=== PATIENT | female | born 1960 | race Caucasian/White ===

== ENCOUNTER → 2020-01-20 12:27 | Outpatient (BNVA) | payer OTHER, SELFPAY | PROVIDERS: PCP Internal Medicine; Referring Provider Internal Medicine; Visit Provider Student in an Organized Health Care Education/Training Program | DX: M17.0 Bilateral primary osteoarthritis of knee (principal); M47.816 Spondylosis without myelopathy or radiculopathy, lumbar region; M72.2 Plantar fascial fibromatosis | CPT/HCPCS: 20610; 99213 ==

== ENCOUNTER 2020-04-07 06:56 | Outpatient (REF) | payer OTHER, SELFPAY ==
[2020-04-07 11:12] LABS: Basophils Percent Auto 0.4 % (0-2); Eosinophils Absolute Auto 0.1 X10*3/uL (0.0-0.4); Eosinophils Percent Auto 1.1 % (0-4); Hematocrit 42.4 % (37-47); Hemoglobin 14.3 g/dl (12.0-16.0); Imm Gran Abs Auto 0.03 X10*3/uL (0.00-0.03); Imm Gran Pct Auto 0.4 % (0.0-0.4); Lymphocytes Percent Auto 36.8 % (20-40); Mean Corpuscular HGB Conc 33.7 g/dl (31.0-35.0); Mean Corpuscular Hemoglobin 32.4 pg (27.0-33.0); Mean Corpuscular Volume 95.9 fL (80-98); Mean Platelet Volume 10.3 fL (9.4-12.3); Monocytes Absolute Auto 0.5 X10*3/uL (0.1-1.2); Monocytes Percent Auto 5.9 % (2-11); Neutrophils Absolute Auto 4.5 X10*3/uL (2.0-8.3); Neutrophils Percent Auto 55.4 % (45-73); Platelet Count 293 X10*3/uL (160-400); Red Blood Count 4.42 X10*6/uL (4.20-5.50); Red Cell Distribution Width 13.1 % (11.0-16.0); White Blood Count 8.2 X10*3/uL (4.8-10.8)
[2020-04-07 11:15] LABS: MANUAL DIFF FLAG NO
[2020-04-07 11:35] LABS: Alanine Aminotransferase 18 U/L (0-31); Anion Gap 14 (12-20); Aspartate Amino Transferase 19 U/L (5-31); Blood Urea Nitrogen 10 mg/dL (9-16); Calcium 8.9 mg/dL (8.4-10.2); Carbon Dioxide 26 mmol/L (22-29); Chloride 104 mmol/L (96-108); Cholesterol 244 mg/dL; Estimated Glomerular Filt Rate > 60; Glucose Fasting 92 mg/dL (60-99); HDL Cholesterol 63 mg/dL; LDL Cholesterol Calculated 150 mg/dl; Potassium 4.6 mmol/l (3.3-5.1); Sodium 139 mmol/L (135-145); Triglycerides 158 mg/dL
[2020-04-07 11:59] LABS: TSH reflex Free T4 2.23 mIU/mL (0.32-4.0); Vitamin D 25-OH Total 25.1 ng/mL (>30)
[2020-04-07 12:34] LABS: Folate 17.7 ng/mL (> or = 4.0); Vitamin B12 516 pg/mL (200-900)
== END 2020-04-07 06:57 | disposition home or self-care (01) ==
LOC: HO.HMGCLDS 06:56
PROVIDERS: PCP Internal Medicine; Visit Provider Internal Medicine
DX: Z00.01 Encounter for general adult medical examination with abnormal findings (principal); K64.8 Other hemorrhoids; L65.9 Nonscarring hair loss, unspecified; Z78.0 Asymptomatic menopausal state; I10 Essential (primary) hypertension
CPT/HCPCS: 36415; 80048; 80061; 82306; 82607; 82746; 84443; 84450; 84460; 85025

== ENCOUNTER → 2020-04-30 15:19 | Outpatient (BNVA) | payer OTHER, SELFPAY | PROVIDERS: Visit Provider Student in an Organized Health Care Education/Training Program | DX: M17.11 Unilateral primary osteoarthritis, right knee (principal); M17.12 Unilateral primary osteoarthritis, left knee | CPT/HCPCS: 20610; 99211 ==

== ENCOUNTER 2020-06-11 14:05 | Outpatient (REF) | payer OTHER, SELFPAY ==
--- NOTE | ~2020-06-11 | MM_ITS ---
EXAMINATION: MM SCREENING DIGITAL BREAST TOMOSYNTHESIS, BILATERAL CLINICAL INFORMATION: Screening. Asymptomatic. The lifetime risk of breast cancer based on the Tyrer-Cuzick Model is 5%. COMPARISON: Mammography: 01/20/2019, 11/21/2017, 12/16/2015 TECHNIQUE: Digital breast tomosynthesis is performed in both the craniocaudal and mediolateral oblique views along with computer-aided detection (CAD). Synthesized 2D images are generated from the tomosynthesis. FINDINGS: There are scattered areas of fibroglandular density (ACR BI-RADS breast composition Category b). There are no significant masses, abnormal calcifications, or other abnormalities. There is a dermal lesion again seen posterior 8:00 left breast. Scattered benign round coarse calcifications again noted. No significant changes. MM/MM tomosynthesis screening BI IMPRESSION: No mammographic evidence of malignancy. ASSESSMENT: BI-RADS 2: Benign RECOMMENDATION: Routine annual mammography screening. This patient's information was entered into a reminder system with a target due date for their next mammogram.
--- NOTE | ~2020-06-11 | MM_ITS ---
EXAMINATION: BONE DENSITOMETRY CLINICAL INDICATION: Asymptomatic menopausal state. COMPARISON: None (current study represents initial baseline exam). TECHNIQUE: Using a SimpliField DXA System (software version: 13.1) manufactured by [employer], dual-energy x-ray absorptiometry was performed of the lumbar spine and left hip. The images are of good technical quality. Summary results are attached. FINDINGS: AP SPINE L1-L4: BMD 1.092 g/cm2, Z-score 0.0, T-score -0.7, normal. LEFT FEMUR, NECK: BMD 0.884 g/cm2, Z-score -0.2, T-score -1.1, osteopenia. LEFT FEMUR, TOTAL: BMD 0.871 g/cm2, Z-score -0.5, T-score -1.1, osteopenia. IDENTIFIED RISK FACTORS: Menopause, tobacco use (current smoker). HISTORY OF FRACTURE: None listed. MEDICATIONS: Calcium supplements or multivitamin, vitamin D. MM/XR DEXA axial skeleton IMPRESSION: 1. DIAGNOSIS: Osteopenia based on the lowest T-score value of -1.1 in the femoral neck and total femur applying World Health Organization criteria. 2. 10-YEAR FRACTURE RISK PREDICTION, FRAX: Major osteoporotic fracture (clinical spine, forearm, hip or shoulder) 7.1%. Hip fracture 0.8%. 3. Treatment Recommendations: NOF guidelines recommend consideration for treatment in postmenopausal women and men age 50 and older presenting with the following: -A hip or vertebral (clinical or morphometric) fracture. -T-score less than or equal to -2.5 at the femoral neck or spine after appropriate evaluation to exclude secondary causes. -Low bone mass at the hip or spine and a 10-year fracture probability by FRAX of greater than or equal to 3% for hip fracture or greater than or equal to 20% for major osteoporotic fracture based on the [place] adapted WHO algorithm. 4. Other Recommendations: All treatment decisions require clinical judgment and consideration of individual patient factors, including patient preferences, comorbidities, previous drug use, risk factors not captured in the FRAX model (e.g. frailty, falls, vitamin D deficiency, increased bone turnover, interval significant decline in bone density) and possible under or overestimation of fracture risk by FRAX. Additional medical evaluation for secondary cause of low bone mineral density may be appropriate. FUTURE SCAN RECOMMENDATION: People with diagnosed cases of osteoporosis or at high risk for fracture should have regular bone mineral density tests. For patients eligible for Medicare, routine testing is allowed once every 2 years. The testing frequency can be increased to one year for patients who have rapidly progressing disease, those who are receiving or discontinuing medical therapy to restore bone mass, or have additional risk factors.
== END 2020-06-11 14:06 | disposition home or self-care (01) ==
LOC: HO.MAMMO 14:05
PROVIDERS: PCP Internal Medicine; Visit Provider Internal Medicine
DX: Z13.820 Encounter for screening for osteoporosis (principal); Z78.0 Asymptomatic menopausal state; Z72.0 Tobacco use; Z79.899 Other long term (current) drug therapy; Z12.31 Encounter for screening mammogram for malignant neoplasm of breast
CPT/HCPCS: 77063; 77067; 77080

== ENCOUNTER 2020-07-23 07:58 | Outpatient (REF) | payer OTHER, SELFPAY ==
--- NOTE | ~2020-07-23 | XR_ITS ---
EXAMINATION: XR knee LT 2V, XR knee RT 2V, XR knee standing BI CLINICAL INFORMATION: Reason for Exam M25.562 - Pain in left knee COMPARISON: None available at the time of this dictation. TECHNIQUE: frontal, lateral, tunnel and patella sunrise views FINDINGS: BONES: No fracture or dislocation is present. JOINTS: Narrowing of joint spaces and developed osteophytes from the edges of articular surfaces suggest degenerative osteoarthritis. There is left knee joint effusion. SOFT TISSUE: Normal XR/XR knee standing BI IMPRESSION: Bilateral moderate degenerative osteoarthritis involving symmetrically medial and lateral compartments. Left knee joint effusion.
--- NOTE | ~2020-07-23 | XR_ITS ---
EXAMINATION: XR knee LT 2V, XR knee RT 2V, XR knee standing BI CLINICAL INFORMATION: Reason for Exam M25.562 - Pain in left knee COMPARISON: None available at the time of this dictation. TECHNIQUE: frontal, lateral, tunnel and patella sunrise views FINDINGS: BONES: No fracture or dislocation is present. JOINTS: Narrowing of joint spaces and developed osteophytes from the edges of articular surfaces suggest degenerative osteoarthritis. There is left knee joint effusion. SOFT TISSUE: Normal XR/XR knee RT 2V IMPRESSION: Bilateral moderate degenerative osteoarthritis involving symmetrically medial and lateral compartments. Left knee joint effusion.
--- NOTE | ~2020-07-23 | XR_ITS ---
EXAMINATION: XR knee LT 2V, XR knee RT 2V, XR knee standing BI CLINICAL INFORMATION: Reason for Exam M25.562 - Pain in left knee COMPARISON: None available at the time of this dictation. TECHNIQUE: frontal, lateral, tunnel and patella sunrise views FINDINGS: BONES: No fracture or dislocation is present. JOINTS: Narrowing of joint spaces and developed osteophytes from the edges of articular surfaces suggest degenerative osteoarthritis. There is left knee joint effusion. SOFT TISSUE: Normal XR/XR knee LT 2V IMPRESSION: Bilateral moderate degenerative osteoarthritis involving symmetrically medial and lateral compartments. Left knee joint effusion.
== END 2020-07-23 07:59 | disposition home or self-care (01) ==
LOC: HO.HOSX 07:58
PROVIDERS: Visit Provider Orthopaedic Surgery
DX: Z01.818 Encounter for other preprocedural examination (principal); M17.12 Unilateral primary osteoarthritis, left knee; M25.561 Pain in right knee; M25.562 Pain in left knee
CPT/HCPCS: 73560; 73565; 99202

== ENCOUNTER → 2020-08-03 09:51 | Outpatient (BNVA) | payer OTHER, SELFPAY | PROVIDERS: PCP Internal Medicine; Visit Provider Orthopaedic Surgery | DX: Z01.812 Encounter for preprocedural laboratory examination (principal); Z01.810 Encounter for preprocedural cardiovascular examination; M17.12 Unilateral primary osteoarthritis, left knee ==

== ENCOUNTER 2020-08-24 | Outpatient (REF) | payer OTHER, SELFPAY ==
--- NOTE | 2020-08-04 12:30 | ECG_ITS ---
Test Reason : PREPROC EXAM Blood Pressure : / mmHG Vent. Rate : 071 BPM Atrial Rate : 071 BPM P-R Int : 184 ms QRS Dur : 072 ms QT Int : 388 ms P-R-T Axes : 074 057 026 degrees QTc Int : 421 ms Normal sinus rhythm Normal ECG No previous ECGs available Referred By: Brooke Gonzales Electronically Signed By:SULAIMAN BROWN MD
[2020-08-04 13:06] LABS: MANUAL DIFF FLAG NO
[2020-08-04 13:11] LABS: Basophils Percent Auto 0.3 % (0-2); Eosinophils Absolute Auto 0.2 X10*3/uL (0.0-0.4); Eosinophils Percent Auto 1.7 % (0-4); Hematocrit 41.7 % (37-47); Hemoglobin 13.8 g/dl (12.0-16.0); Imm Gran Abs Auto 0.04 X10*3/uL (0.00-0.03); Imm Gran Pct Auto 0.4 % (0.0-0.4); Lymphocytes Absolute Auto 2.6 X10*3/uL (1.2-4.9); Lymphocytes Percent Auto 29.1 % (20-40); Mean Corpuscular HGB Conc 33.1 g/dl (31.0-35.0); Mean Corpuscular Hemoglobin 31.9 pg (27.0-33.0); Mean Corpuscular Volume 96.5 fL (80-98); Monocytes Absolute Auto 0.4 X10*3/uL (0.1-1.2); Monocytes Percent Auto 4.9 % (2-11); Neutrophils Absolute Auto 5.7 X10*3/uL (2.0-8.3); Neutrophils Percent Auto 63.6 % (45-73); Platelet Count 274 X10*3/uL (160-400); Red Blood Count 4.32 X10*6/uL (4.20-5.50); Red Cell Distribution Width 12.5 % (11.0-16.0)
[2020-08-04 13:42] LABS: Anion Gap 14 (12-20); Blood Urea Nitrogen 15 mg/dL (9-16); Calcium 9.6 mg/dL (8.4-10.2); Carbon Dioxide 25 mmol/L (22-29); Chloride 103 mmol/L (96-108); Estimated Glomerular Filt Rate > 60; Glucose Random 112 mg/dL (60-115); Potassium 4.4 mmol/L (3.3-5.1); Sodium 138 mmol/L (135-145)
== END 2020-08-24 00:01 ==
LOC: HO.PAT
PROVIDERS: PCP Internal Medicine; Visit Provider Orthopaedic Surgery
DX: Z01.812 Encounter for preprocedural laboratory examination (principal); Z01.810 Encounter for preprocedural cardiovascular examination; M17.12 Unilateral primary osteoarthritis, left knee
CPT/HCPCS: 36415; 80048; 85025; 93005

== ENCOUNTER → 2020-08-30 10:13 | Outpatient (BNVA) | payer OTHER, SELFPAY | PROVIDERS: PCP Internal Medicine; Referring Provider Internal Medicine; Visit Provider Internal Medicine Cardiovascular Disease | DX: Z01.810 Encounter for preprocedural cardiovascular examination (principal); R00.2 Palpitations | CPT/HCPCS: 93005; 99212 ==

== ENCOUNTER → 2020-09-01 15:48 | Outpatient (BNVA) | payer OTHER, SELFPAY | PROVIDERS: Visit Provider Student in an Organized Health Care Education/Training Program | DX: M17.12 Unilateral primary osteoarthritis, left knee (principal); M17.11 Unilateral primary osteoarthritis, right knee | CPT/HCPCS: 99212 ==

== ENCOUNTER → 2020-09-03 10:00 | Outpatient (BNVA) | payer OTHER, SELFPAY | PROVIDERS: PCP Internal Medicine; Referring Provider Internal Medicine; Visit Provider Internal Medicine Cardiovascular Disease ==

== ENCOUNTER → 2020-09-08 08:52 | Outpatient (REF) | payer OTHER, SELFPAY ==
--- NOTE | 2020-09-08 07:05 | ECG_ITS ---
Hook-up date: 2020-09-08 09:12:00 Duration: 47:59:00 Test Indications: PREPROCEDURAL CARDIOVASCULAR Medications: [id number] QRS complexes 1 Ventricular ectopics which represent <1 % of total QRS comp. 2 Supraventricular ectopics which represent <1 % of total QRS comp. * Paced QRS complexs which represent % of total QRS comp. VENTRICULAR ECTOPY 1 Isolated 0 Bigeminal Cycles 0 Couplets 0 Runs 0 Beats in Runs * Beats LONGEST at * BPM at :: -- * Beats FASTEST at * BPM at :: -- SUPRAVENTRICULAR ECTOPY 2 Isolated 0 Couplets 0 Runs 0 Beats in Runs * Beats LONGEST at * BPM at :: -- * Beats FASTEST at * BPM at :: -- HEART RATES 49 MIN at 06:49:24 2020-09-09 76 AVG 122 MAX at 10:18:38 2020-09-08 LONGEST RR 1.5920 secs at 20:07:20 2020-09-09 S-T LEVELS Channel 1 - 128 mm at 09:12:00 2020-09-08 - 128 mm at 09:12:00 2020-09-08 Channel 2 - 128 mm at 09:12:00 2020-09-08 - 128 mm at 09:12:00 2020-09-08 Channel 3 - 128 mm at 02:83:11 -- - 128 mm at 02:83:11 Basic rhythm Normal sinus rhythm No long pause or profound bradycardia No dangerous dysrhythm periods No diary submitted Referred By: Siddharth Hernandes Overread By: SULAIMAN BROWN MD
== END ==
LOC: HO.CARD 08:52
PROVIDERS: PCP Internal Medicine; Referring Provider Internal Medicine; Visit Provider Internal Medicine Cardiovascular Disease
DX: Z01.810 Encounter for preprocedural cardiovascular examination (principal)
CPT/HCPCS: 93226

== ENCOUNTER 2020-09-13 14:00 | Outpatient (RCR) | payer OTHER, SELFPAY ==
--- NOTE | 2020-08-13 13:49 | MHC.PT.EP ---
[facility] [place] Office [place] Office [place] Office [address] Brittni Callejas [address] [phone] F: [phone] F: [phone] F: [phone] F: [phone] Physical Therapy Plan of Care Date of Evaluation: Date of Surgery: Diagnosis: unilateral primary OA L knee, prehab Assessment: 60 y/o F referred to PT with primary OA L knee and prehab needed for upcoming TKA 08/30/20. However pt has tooth infection and will not have surgery until her tooth is taken care of. 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 Pt states she feels that the exercises are helpful and would maybe like to try and prevent TKA if possible. Examination shows decreased LE strength, altered SI mechanics (L LE longer), impaired postural awareness, and impaired gait pattern. Recommend PT 2x/week for 4 weeks to address impairments, implement HEP, and optimize functional mobility. Frequency and Duration: The patient will be seen 2x/week for 4 weeks Short Term Goals: 2 weeks 1. I with HEP 2. 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 I with HEP and self management of sx 2. Pt will demosntrate neutral SI mechanics 3. Pt will be able to ambulate one mile without limp Treatment Plan: Modalities to reduce pain, spasms and effusion. Manual therapy to restore motion and function. Therapeutic exercise to improve strength and flexibility. Neuromuscular re-education for posture and balance. Therapeutic activities to return to functional activities of daily living. Electronically signed by: Lucero Reyes PT Please sign and return to therapist. Thank you for your referral.
--- NOTE | 2020-10-25 08:21 | MHC.PT.DC ---
[facility] [place] Office [place] Office [place] Office [address] Brittni Callejas [address] [phone] F: [phone] F: [phone] F: [phone] F: [phone] Physical Therapy Discharge Report Diagnosis: unilateral primary OA L knee, prehab Date of Surgery: Date of Evaluation: 08/13/20 Date of Discharge: 10/25/20 Treatments to Date: 5 Cancellations to Date: 0 No Shows to Date: 0 Discharge Status: Independent with HEP Discharge Summary: Pt did not f/u with further visits but reported improved sx with HEP. D/c at this time to I HEP Electronically signed by: Lucero Reyes PT Please sign and return to therapist. Thank you for your referral.
== END 2020-10-25 08:22 | disposition home or self-care (01) ==
LOC: HO.PTCHIC 14:00
PROVIDERS: PCP Internal Medicine; Visit Provider Orthopaedic Surgery
DX: M17.12 Unilateral primary osteoarthritis, left knee (principal)
CPT/HCPCS: 97110; 97161; 97530

== ENCOUNTER → 2021-01-11 14:05 | Outpatient (BNVA) | payer OTHER, SELFPAY | PROVIDERS: PCP Internal Medicine; Referring Provider Internal Medicine; Visit Provider Nurse Practitioner Family | DX: Z01.810 Encounter for preprocedural cardiovascular examination (principal); R00.2 Palpitations | CPT/HCPCS: 99212 ==

== ENCOUNTER → 2021-01-31 08:48 | Outpatient (BNVA) | payer OTHER, SELFPAY | PROVIDERS: PCP Internal Medicine; Visit Provider Orthopaedic Surgery | DX: M17.12 Unilateral primary osteoarthritis, left knee (principal) | CPT/HCPCS: 99212 ==

== ENCOUNTER → 2021-03-10 13:58 | Outpatient (BNVA) | payer OTHER, SELFPAY | PROVIDERS: PCP Internal Medicine; Visit Provider Physician Assistant | DX: M17.12 Unilateral primary osteoarthritis, left knee (principal) | CPT/HCPCS: 99212 ==

== ENCOUNTER → 2021-03-14 10:48 | Outpatient (BNVA) | payer OTHER, SELFPAY | PROVIDERS: PCP Internal Medicine; Visit Provider Physician Assistant | DX: R23.8 Other skin changes (principal); F17.210 Nicotine dependence, cigarettes, uncomplicated | CPT/HCPCS: 99212 ==

== ENCOUNTER 2021-03-15 07:36 | Inpatient (IN) | payer OTHER, SELFPAY ==
[2021-02-17 11:16] LABS: MANUAL DIFF FLAG NO
[2021-02-17 11:25] LABS: Basophils Percent Auto 0.4 % (0-2); Eosinophils Absolute Auto 0.1 X10*3/uL (0.0-0.4); Eosinophils Percent Auto 1.9 % (0-4); Hematocrit 40.3 % (37.0-47.0); Hemoglobin 13.9 g/dl (12.0-16.0); Imm Gran Abs Auto 0.02 X10*3/uL (0.00-0.03); Imm Gran Pct Auto 0.3 % (0.0-0.4); Lymphocytes Absolute Auto 2.5 X10*3/uL (1.2-4.9); Lymphocytes Percent Auto 34.5 % (20-40); Mean Corpuscular HGB Conc 34.5 g/dl (31.0-35.0); Mean Corpuscular Hemoglobin 32.5 pg (27.0-33.0); Mean Corpuscular Volume 94.2 fL (80.0-98.0); Mean Platelet Volume 10.6 fL (9.4-12.3); Monocytes Absolute Auto 0.4 X10*3/uL (0.1-1.2); Monocytes Percent Auto 5.9 % (2-11); Neutrophils Absolute Auto 4.2 x10*3/uL (2.0-8.3); Platelet Count 277 X10*3/uL (160-400); Red Blood Count 4.28 X10*6/uL (4.20-5.50); Red Cell Distribution Width 12.5 % (11.0-16.0); White Blood Count 7.3 X10*3/uL (4.8-10.8)
[2021-02-17 11:45] LABS: Anion Gap 9 (12-20); Blood Urea Nitrogen 12 mg/dL (9-16); Calcium 9.4 mg/dL (8.4-10.2); Carbon Dioxide 27 mmol/L (22-29); Chloride 106 mmol/L (96-108); Estimated Glomerular Filt Rate > 60; Glucose Random 111 mg/dL (60-115); Potassium 4.1 mmol/L (3.3-5.1); Sodium 138 mmol/L (135-145)
[2021-03-08 13:42] VITALS: BP 134/86; PULSE 80; RESP 16; O2SAT 96; BMI 33.7
--- NOTE | 2021-03-08 14:30 | P.CONAN_ITS ---
Documented by User: Megan Joy NP 03/08/21 14:43 HPI - Anesthesia Eval Consult details Narrative: 60yo F for Left Knee Replacement Total PCP cleared Cardiac cleared at [facility] Active Problems Active Problems: All Active Problems (Updated 02/17/21 @ 12:59 by Jeniffer Colunga MD) Primary osteoarthritis of right knee (Acute) Primary osteoarthritis of left knee (Acute) Lumbar spondylosis (Acute) Plantar fasciitis, bilateral (Acute) Allergic rhinitis (Acute) Refused influenza vaccine (Acute) Not ready to quit smoking (Acute) Anxiety (Acute) Nonscarring hair loss (Acute) Past Medical History Medical History Anxiety Asymptomatic age-related postmenopausal state Encounter for general adult medical examination with abnormal findings Internal bleeding hemorrhoids Nonscarring hair loss Not ready to quit smoking Refused influenza vaccine Tubular adenoma of colon Family History Family History Father Myocardial infarction CVD (cardiovascular disease) Mother Depression Sister No problems noted. Maternal Grandmother No problems noted. Maternal Grandfather No problems noted. Paternal Grandfather No problems noted. Paternal Grandmother No problems noted. Son No problems noted. Son No problems noted. Other Substance use disorder Family history of problems with anesthesia: No Surgical History Surgical History Hx of colonoscopy Hx of tubal ligation No pertinent past surgical history History of Problems with Anesthesia: No Social History Social History Household Members: Significant Other Housing: House Are you a primary career guidance counselor to a significant other at home: No Do you presently have visiting nurse or other home services: No Alcohol intake: current Alcohol intake frequency: holidays/special occasions only Alcohol type: beer and wine Patient Tobacco Use Status: Current everyday Tobacco user Tobacco use type: Cigarette Cigarettes Per Day: 14 Years Smoked: 40 Smoked in Last 30 Days: Yes Patient Interested in Nicotine Replacement: Yes Patient Given Instructions on How to Stop Smoking: Yes Date Education Initiated: 03/08/21 Second Hand Smoke Exposure: Yes Use of substances other than those prescribed or required for medical reasons: No Have you been hit, kicked, punched, or otherwise hurt by someone within the past year? If so, by whom?: No Are you DNR?: No Advance Directives: No Advance Directives Information Provided: Yes Advance Directives on File: No Recently lost weight without trying: No Patient : No Current occupational status: disabled Current occupation: right handed Narrative Narrative: No recent illness Activity limited to pain. No CP/SOB with minimal activity Meds Allergies Allergy/AdvReac Type Severity Reaction Status Date / Time Penicillins [PENICILLINS] Allergy Severe RASH- Verified 03/14/21 10:58 1969's very bad rash Home Medications Medication Instructions Recorded Confirmed Last Taken Type acetaminophen 500 mg tablet 1,000 mg PO Q6H PRN 01/20/20 03/07/21 Unknown History (Tylenol Extra Strength) ibuprofen 200 mg capsule 400 mg PO Q8H PRN 01/20/20 03/07/21 Unknown History Exam Exam Date and Time: March 08, 2021 1430 Height,Weight and Vital Signs: Height 5 ft 2 in Weight 83.6 kg Last Vital Signs Pulse 80 03/08/21 13:42 Resp 16 03/08/21 13:42 BP 134/86 03/08/21 13:42 Pulse Ox 96 03/08/21 13:42 Pertinent Lab Results Pertinent Lab Results: Laboratory Tests 02/17/21 02/17/21 10:18 10:18 WBC 7.3 RBC 4.28 Hgb 13.9 Hct 40.3 MCV 94.2 MCH 32.5 MCHC 34.5 RDW 12.5 Plt Count 277 MPV 10.6 Immature Gran % (Auto) 0.3 Neut % (Auto) 57.0 Lymph % (Auto) 34.5 [place] % (Auto) 5.9 Eos % (Auto) 1.9 Baso % (Auto) 0.4 Lymph # (Auto) 2.5 [place] # (Auto) 0.4 Eos # (Auto) 0.1 Baso # (Auto) 0.0 Abs Immat Gran (auto) 0.02 Absolute Neuts (auto) 4.2 Absolute Nucleated RBC 0.000 Nucleated RBC % (auto) 0.0 Sodium 138 Potassium 4.1 Chloride 106 Carbon Dioxide 27 Anion Gap 9 L BUN 12 Creatinine 0.80 Estim Creat Clear Calc TNP Estimated GFR > 60 Random Glucose 111 Calcium 9.4 Narrative Narrative: EKG 02/2021 NSR @ 75, Low volt QRS Holter 08/2020 Basic rhythm Normal sinus rhythm No long pause or profound bradycardia No dangerous dysrhythm periods No diary submitted Airway Mallampati Class: I TM Dist: >3cm Neck ROM: Full Partial: Upper Loose/Missing/Broken Teeth: No (Left lower molar implant ) Assessment and Plan Assessment Anesthesia Assessment: Anesthesia Plan Discussed, Smoking Cess. Discussed and PAT Visit Final Anesthetic Review Family History of Problems with Anesthesia: No History of Problems with Anesthesia: No Documented by User: Priscilla Buenrostro MD 03/15/21 08:37 PMFSH Past Medical History Medical History Anxiety Asymptomatic age-related postmenopausal state Encounter for general adult medical examination with abnormal findings Internal bleeding hemorrhoids Nonscarring hair loss Not ready to quit smoking Refused influenza vaccine Tubular adenoma of colon Family History Family History Father Myocardial infarction CVD (cardiovascular disease) Mother Depression Sister No problems noted. Maternal Grandmother No problems noted. Maternal Grandfather No problems noted. Paternal Grandfather No problems noted. Paternal Grandmother No problems noted. Son No problems noted. Son No problems noted. Other Substance use disorder Surgical History Surgical History Hx of colonoscopy Hx of tubal ligation No pertinent past surgical history Social History Social History Household Members: Significant Other Housing: House Are you a primary career guidance counselor to a significant other at home: No Do you presently have visiting nurse or other home services: No Alcohol intake: current Alcohol intake frequency: holidays/special occasions only Alcohol type: beer and wine Patient Tobacco Use Status: Current everyday Tobacco user Tobacco use type: Cigarette Cigarettes Per Day: 14 Years Smoked: 40 Smoked in Last 30 Days: Yes Patient Interested in Nicotine Replacement: Yes Patient Given Instructions on How to Stop Smoking: Yes Date Education Initiated: 03/08/21 Second Hand Smoke Exposure: Yes Use of substances other than those prescribed or required for medical reasons: No Have you been hit, kicked, punched, or otherwise hurt by someone within the past year? If so, by whom?: No Are you DNR?: No Advance Directives: No Advance Directives Information Provided: Yes Advance Directives on File: No Recently lost weight without trying: No Patient : No Current occupational status: disabled Current occupation: right handed Meds Allergies Allergy/AdvReac Type Severity Reaction Status Date / Time Penicillins [PENICILLINS] Allergy Severe RASH- Verified 03/14/21 10:58 1970's very bad rash Home Medications Medication Instructions Recorded Confirmed Last Taken Type acetaminophen 500 mg tablet 1,000 mg PO Q6H PRN 01/20/20 03/07/21 Unknown History (Tylenol Extra Strength) ibuprofen 200 mg capsule 400 mg PO Q8H PRN 01/20/20 03/07/21 Unknown History Exam Airway Heart: RRR Lungs: CTA Assessment and Plan Final Anesthetic Review ASA Class: II Final Preanesthetic Review: Meds/Allgs Chart Reviewed, Consent Obtained/Reviewed and Anes Risks/Benef Reviewed Patient Risk: Low Procedure Risk: Intermediate Anesthetic Plan Anesthetic Plan: Spinal and Regional Block Disposition: Standard PACU
[2021-03-09 08:28] LABS: MRSA Nasal PCR NEGATIVE (Negative); SA Nasal PCR NEGATIVE (Negative)
[2021-03-15] VITALS (22 sets, daily range): BP systolic 84–197; BP diastolic 44–90; PULSE 42–80; RESP 14–20; TEMP 36.2–36.8; O2SAT 94–100; BMI 37.2
--- NOTE | ~2021-03-15 | XR_ITS ---
EXAMINATION: XR KNEE, LEFT CLINICAL INFORMATION: Left TKA. COMPARISON: Left knee 07/23/2020 TECHNIQUE: Two views of the left knee. FINDINGS: There is a total left knee arthroplasty with prosthetic components in satisfactory alignment. No fracture seen. There are surgical sutures along the anterior knee soft tissue gas consistent with immediate postoperative changes XR/XR knee LT 2V IMPRESSION: Status post total right knee arthroplasty with prosthetic components in satisfactory alignment. There are immediate postoperative changes noted.
[2021-03-15 08:14] LABS: COVID-19 Test Negative (Negative)
[2021-03-15] MEDS: Albuterol Sulfate (0.083%) 2.5 MG/3 ML VIAL.NEB INHALE (08:18)
[2021-03-15] MEDS: Lactated Ringers 1,000 ML 100 ML IVCONT (08:31)
[2021-03-15] MEDS: vancomycin HCL 1,500 MG in 0.9 % Sodium Chloride 500 ML 333.33 MG IV (08:32)
--- NOTE | 2021-03-15 09:20 | MHC.SHP ---
Pre-Procedural Eval Section A Date of Service: 03/15/21 The patient is an INPATIENT: No Changes since office visit: Yes Cold of Flu in the past 2 weeks, Yes New Medical Problems and Yes Changes in Medication The History & Physical has been completed within 30 days and I have reviewed it.: Yes Section B Chief Complaint: LT TKA Allergies: Allergies Allergy/AdvReac Type Severity Reaction Status Date / Time Penicillins [PENICILLINS] Allergy Severe RASH- Verified 03/14/21 10:58 1970's very bad rash Plan I have reviewed the history and physical and performed a pertinent physical examination on my patient. No changes have occurred unless specified.
--- NOTE | 2021-03-15 09:37 | PC.NURSE ---
Addendum entered by Kathy Rizo RN 03/15/21 09:50: Vancomycin added to chart for allergy Original Note: Patient awoken by anesthesia, began itching skin & scalp. PCN infusion stopped. Noted to have redness on back & chest- not raised & blanchable. Patient states I dont know i just feel itchy all of the sudden. Benadryl given by Dr Buenrostro. Approx 300 ml of dose of PCN infused prior to reaction. Denies tongue swelling, tongue itching. Stated it feels better now after receiving benedryl.
--- NOTE | 2021-03-15 11:25 | P.BOP_ITS ---
Brief Operative Note Date of Service: 03/15/21 Pre-op diagnosis: Left knee OA Post-op diagnosis: same Procedure: Left TKA Implants: [employer]iki triathalon crusiate retaining press fit 05/12/12 Surgeon: Neno Jin MD Anesthesia: regional and spinal Was an Insurance Follow Up Specialist used for this Procedure?: Yes Insurance Follow Up Specialist: Trey Coleman Estimated blood loss (mL): 200 IV fluids (mL): 1,000 Pathology: other Condition: stable Disposition: PACU
--- NOTE | 2021-03-15 11:31 | P.OP_ITS ---
Operative Note Operative Note Date of Service: 03/15/21 Narrative: Pre-op diagnosis: Left knee OA Post-op diagnosis: same Procedure: Left TKA Implants: [place] triathalon cruciate retaining press fit 05/12/12 Surgeon: Neno Jin MD Anesthesia: regional and spinal Was an Motor Equipment Lieutenant used for this Procedure?: Yes Motor Equipment Lieutenant: Trey Coleman Estimated blood loss (mL): 200 IV fluids (mL): 1,000 Pathology: other Condition: stable Disposition: PACU Procedure in detail: The patient was brought to the operating room and prepped and draped in standard sterile fashion. A time-out was called to identify proper site proper procedure proper surgeon and IV antibiotics were administered. 1 g of IV tranexamic acid was administered. I began by making a midline incision to the retinaculum and performed a medial parapatellar arthrotomy. The patella was translated laterally and the knee was flexed up. The medial compartment was eburnated. I performed a small medial peel and resected the infrapatellar fat pad. Jerome's line was then used to drill my intramedullary femoral guide and my distal femur cut was made in 5 degrees of valgus while protecting the soft tissues. I then measured a # 2 femur and placed my cutting guide and made my 3 deg valgus anterior posterior and chamfer cuts protecting the soft tissues at all times. Once I was satisfied with my cuts I turned my attention to the tibia. I removed the meniscus and , using an external cutting guide, in line with the tibial crest and the third ray, I made my distal tibial cut in 3 deg slope of while protecting the PCL the posterior soft tissues at all times. An extension block was used to confirm appropriate amount of bony resection. I then sized a #3 tibia and once I was satisfied that there was complete tibial coverage I placed my trial and with the trial femur in place took the knee through range of motion. I was satisfied with the extension and flexion as well as the stability at 0, 30 and 90 degrees. I then turned my attention to the patella where I removed 1 cm from the undersurface of the patella and then trialed a 29a patellar button. Again the knee was taken through range of motion I was satisfied with the tracking. I then returned to the femur and drilled my femoral lug holes and prepared the tibia. A femoral bone plug was placed and the knee was irrigated copiously. I then press fit the patella, tibia and femur in standard fashion. I trialed different inserts until I selected a # 13CR insert. The final insert was placed and a 3 minutes iodine soak with local TXA was performed. The knee was then closed with a running Quill suture, a 3 0 Vicryl and peter on the skin. Patient was then placed in sterile dressing and brought to recovery room in stable condition there were no known complications.
[2021-03-15] MEDS: Acetaminophen 325 MG TABLET 650 MG PO (16:24)
[2021-03-15] MEDS: oxyCODONE HCl Immed Release 5 MG TABLET PO ×2 (16:25→20:11)
[2021-03-15] MEDS: Dextrose 5 % and 0.45 % NaCl 1,000 ML 80 ML IVCONT (20:10)
[2021-03-15] MEDS: Clindamycin Phosphate/D5W 600 MG/50 ML PIGGYBACK 100 MG IV (20:10)
[2021-03-15] MEDS: 0.9 % Sodium Chloride Flush 3 ML SYRINGE IVFLUSH (20:10)
[2021-03-15] MEDS: Docusate Sodium 100 MG CAPSULE PO (20:11)
[2021-03-15] MEDS: Celecoxib 200 MG CAPSULE PO (20:11)
[2021-03-15] MEDS: oxyCODONE HCl ER 10 MG TAB.ER.12H PO (20:11)
[2021-03-15] MEDS: HYDROmorphone HCl 0.5 MG/0.5 ML SYRINGE 0.25 MG IVPUSH (21:40)
[2021-03-16] VITALS: BP 151/74; PULSE 87; RESP 16; TEMP 36.4; O2SAT 94
[2021-03-16 03:33] VITALS: BP 141/72; PULSE 65; RESP 16; TEMP 36.9; O2SAT 93
[2021-03-16 05:52] LABS: MANUAL DIFF FLAG NO
[2021-03-16 06:04] LABS: Basophils Percent Auto 0.1 % (0-2); Hematocrit 32.9 % (37.0-47.0); Hemoglobin 11.1 g/dl (12.0-16.0); Imm Gran Abs Auto 0.03 X10*3/uL (0.00-0.03); Imm Gran Pct Auto 0.3 % (0.0-0.4); Lymphocytes Percent Auto 17.4 % (20-40); Mean Corpuscular HGB Conc 33.7 g/dl (31.0-35.0); Mean Corpuscular Hemoglobin 31.8 pg (27.0-33.0); Mean Corpuscular Volume 94.3 fL (80.0-98.0); Mean Platelet Volume 10.3 fL (9.4-12.3); Monocytes Absolute Auto 0.9 X10*3/uL (0.1-1.2); Monocytes Percent Auto 7.7 % (2-11); Neutrophils Absolute Auto 8.7 x10*3/uL (2.0-8.3); Neutrophils Percent Auto 74.5 % (45-73); Platelet Count 215 X10*3/uL (160-400); Red Blood Count 3.49 X10*6/uL (4.20-5.50); Red Cell Distribution Width 12.7 % (11.0-16.0); White Blood Count 11.7 X10*3/uL (4.8-10.8)
[2021-03-16 06:12] LABS: Anion Gap 10 (12-20); Blood Urea Nitrogen 8 mg/dL (9-16); Calcium 8.4 mg/dL (8.4-10.2); Carbon Dioxide 24 mmol/L (22-29); Chloride 108 mmol/L (96-108); Creatinine Clr Calc Pharmacy 97.9; Estimated Glomerular Filt Rate > 60; Glucose Fasting 136 mg/dL (60-99); Potassium 3.7 mmol/L (3.3-5.1); Sodium 138 mmol/L (135-145)
[2021-03-16] MEDS: Celecoxib 200 MG CAPSULE PO ×2 (07:14→21:08)
[2021-03-16] MEDS: Docusate Sodium 100 MG CAPSULE PO ×2 (07:14→21:09)
[2021-03-16] MEDS: oxyCODONE HCl ER 10 MG TAB.ER.12H PO ×2 (07:14→21:09)
[2021-03-16] MEDS: oxyCODONE HCl Immed Release 5 MG TABLET PO ×4 (07:14→21:08)
[2021-03-16 07:47] VITALS: BP 166/76; PULSE 82; RESP 18; TEMP 36.4; O2SAT 98
--- NOTE | 2021-03-16 08:12 | P.PNOP_ITS ---
Subjective Subjective Date of Service: 03/16/21 Interval history: POD 1 s/p LT TKA No overnight events resting in bed, has been out of bed using the bathroom denies cp, sob, palpitations Physical Exam Vital Signs: Vital Signs: Last Vital Signs Temp 97.6 F 03/16/21 07:47 Pulse 82 03/16/21 07:47 Resp 18 03/16/21 07:47 BP 166/76 H 03/16/21 07:47 Pulse Ox 98 03/16/21 07:47 BMI result Body Mass Index 37.2 Const: General: cooperative, healthy appearing and no acute distress Resp: Effort & Inspection: normal respiratory effort and able to speak in complete sentences Cardio: Rate: regular rate Peripheral pulses: Peripheral pulses 2+ throug hout GI: Palpation (GI): Soft to palpation Skin: General skin exam: no rashes or lesions noted Extrem: Other: bandage clean dry and intact. [place] intact. No erythema or joint effusion. Calf supple nontender. Neurovascularly intact. Procedures Date of Service Date of Service: 03/16/21 Progress Note: A&P Assessment and plan (1) Status post total left knee replacement: Status: Acute Assessment and Plan: * Continue pain mgmnt * Begin Aspirin for dvt ppx * begin PT for LT TKA * Dispo planning-Pending PT eval, pain mgmnt Fall Risk Details Current Medications: Current Medications Acetaminophen (Acetaminophen 325 Mg Tablet) 650 mg PO Q6H PRN PRN Reason: Pain, Mild (Pain Scale 1-3) Aspirin (Aspirin 325 Mg Tablet) 325 mg PO BID [facility] Celecoxib (Celecoxib 200 Mg Capsule) 200 mg PO BID [facility] Last Admin: 03/16/21 07:14 Dose: 200 mg Documented by: Docusate Sodium (Docusate Sodium 100 Mg Capsule) 100 mg PO BID [facility] Last Admin: 03/16/21 07:14 Dose: 100 mg Documented by: Hydromorphone HCl (Hydromorphone Hcl 0.5 Mg/0.5 Ml Syringe) 0.25 mg IVPUSH Q4H PRN; Protocol PRN Reason: Pain, Severe (Pain Scale 7-10) Last Admin: 03/15/21 21:40 Dose: 0.25 mg Documented by: Dextrose/Sodium Chloride (D51/2ns) 1,000 mls @ 80 mls/hr IVCONT .[id number] [facility] Last Infusion: 03/16/21 07:17 Dose: Infused Documented by: Ondansetron HCl (Ondansetron Hcl 4 Mg/2 Ml Vial) 4 mg IVPUSH Q8H PRN PRN Reason: Nausea and Vomiting Oxycodone HCl (Oxycodone Hcl Immed Release 5 Mg Tablet) 5 mg PO Q4H PRN PRN Reason: Pain, Moderate (Pain Scale 4-6 Last Admin: 03/16/21 07:14 Dose: 5 mg Documented by: Oxycodone HCl (Oxycodone Hcl Er 10 Mg Tab.Er.12h) 10 mg PO BID [facility] Last Admin: 03/16/21 07:14 Dose: 10 mg Documented by: Sodium Chloride (0.9 % Sodium Chloride Flush 3 Ml Syringe) 3 ml IVFLUSH QSHIFT [facility] Last Admin: 03/16/21 07:13 Dose: Not Given Documented by: Time Spent With Patient Time: Total time spent is greater than 50% in coordination of care (as documented) at patient's floor/unit and/or counseling patient: Time with patient: less than 15 minutes Quality Stroke Does the patient have a stroke diagnosis?: No VTE Prior VTE?: No VTE Risk Level:: Surgical - very high VTE Device Contraindication: N/A - Device Ordered VTE Drug Contraindication: N/A - Med Ordered
[2021-03-16] MEDS: Dextrose 5 % and 0.45 % NaCl 1,000 ML 80 ML IVCONT ×2 (09:14→21:10)
[2021-03-16] MEDS: Aspirin 325 MG TABLET PO ×2 (09:27→21:07)
[2021-03-16] MEDS: Acetaminophen 325 MG TABLET 650 MG PO ×2 (09:27→16:08)
--- NOTE | 2021-03-16 09:54 | P.CONIM_ITS ---
History of Present Illness Data of Consult Service Date: 03/16/21 Primary Care Provider: Jeniffer Colunga MD HPI Reason for consult: Medical Management This is a 60 yo F with no significant PMH who is admitted under the orthopedic services s/p Left TKA. Medical services consulted for post-op medical manageme nt. Patient is seen and examined in her room. She denies any complaints other than knee pain. She denies cp/sob/DE LEON/abd pain/n/v/d. Reports she has worked with PT. PMH Denies any PMH PSH Denies surgical history other than current procedure Reports alcoholism and heart disease in her father who is . Reports 3/4 PPD x many years; social alcohol use; no illicit substance use Review of Systems Review of Systems: negative except HPI [facility] Medical History Anxiety Asymptomatic age-related postmenopausal state Encounter for general adult medical examination with abnormal findings Internal bleeding hemorrhoids Nonscarring hair loss Not ready to quit smoking Refused influenza vaccine Tubular adenoma of colon Family History Father Myocardial infarction CVD (cardiovascular disease) Mother Depression Sister No problems noted. Maternal Grandmother No problems noted. Maternal Grandfather No problems noted. Paternal Grandfather No problems noted. Paternal Grandmother No problems noted. Son No problems noted. Son No problems noted. Other Substance use disorder Surgical History Hx of colonoscopy Hx of tubal ligation No pertinent past surgical history Social History Household Members: Spouse Housing: House Are you a primary career technical supervisor to a significant other at home: No Do you presently have visiting nurse or other home services: No Alcohol intake: current Alcohol intake frequency: holidays/special occasions only Alcohol type: beer and wine Patient Tobacco Use Status: Current everyday Tobacco user Tobacco use type: Cigarette Cigarette Packs Per Day: 0.5 Cigarettes Per Day: 10.0 Years Smoked: 40 Smoked in Last 30 Days: Yes Patient Interested in Nicotine Replacement: Yes Patient Given Instructions on How to Stop Smoking: Yes Date Education Initiated: 03/08/21 Second Hand Smoke Exposure: Yes Use of substances other than those prescribed or required for medical reasons: No Currently Displaying Signs/Symptoms of Drug Intoxication Withdrawal: No Have you been hit, kicked, punched, or otherwise hurt by someone within the past year? If so, by whom?: No Do you feel safe in your current relationship?: No Is there a partner from a previous relationship who is making you feel unsafe now?: No Are you made to feel afraid or neglected: No Are you DNR?: No Advance Directives: No Advance Directives Information Provided: Yes Advance Directives on File: No Do you have thoughts of harming others: None Do you have a plan to hurt others: No Plan Recently lost weight without trying: No How much weight loss: Not applicable Eating poorly because of decreased appetite: No Nutrition screen score: 0 Nutrition Risks: No Nutritional Risk Patient : No : No Poor oral hygiene: No Current occupational status: disabled Current occupation: right handed Meds Allergies Allergy/AdvReac Type Severity Reaction Status Date / Time Penicillins [PENICILLINS] Allergy Severe RASH- Verified 03/14/21 10:58 1970's very bad rash vancomycin Allergy Itching Verified 03/15/21 09:50 Active Medications: Current Medications Acetaminophen (Acetaminophen 325 Mg Tablet) 650 mg PO Q6H PRN PRN Reason: Pain, Mild (Pain Scale 1-3) Last Admin: 03/16/21 09:27 Dose: 650 mg Documented by: Aspirin (Aspirin 325 Mg Tablet) 325 mg PO BID [facility] Last Admin: 03/16/21 09:27 Dose: 325 mg Documented by: Celecoxib (Celecoxib 200 Mg Capsule) 200 mg PO BID [facility] Last Admin: 03/16/21 07:14 Dose: 200 mg Documented by: Docusate Sodium (Docusate Sodium 100 Mg Capsule) 100 mg PO BID [facility] Last Admin: 03/16/21 07:14 Dose: 100 mg Documented by: Hydromorphone HCl (Hydromorphone Hcl 0.5 Mg/0.5 Ml Syringe) 0.25 mg IVPUSH Q4H PRN; Protocol PRN Reason: Pain, Severe (Pain Scale 7-10) Last Admin: 03/15/21 21:40 Dose: 0.25 mg Documented by: Dextrose/Sodium Chloride (D51/2ns) 1,000 mls @ 80 mls/hr IVCONT .[id number] [facility] Last Admin: 03/16/21 09:14 Dose: 80 mls/hr Documented by: Ondansetron HCl (Ondansetron Hcl 4 Mg/2 Ml Vial) 4 mg IVPUSH Q8H PRN PRN Reason: Nausea and Vomiting Oxycodone HCl (Oxycodone Hcl Immed Release 5 Mg Tablet) 5 mg PO Q4H PRN PRN Reason: Pain, Moderate (Pain Scale 4-6 Last Admin: 03/16/21 07:14 Dose: 5 mg Documented by: Oxycodone HCl (Oxycodone Hcl Er 10 Mg Tab.Er.12h) 10 mg PO BID [facility] Last Admin: 03/16/21 07:14 Dose: 10 mg Documented by: Sodium Chloride (0.9 % Sodium Chloride Flush 3 Ml Syringe) 3 ml IVFLUSH QSHIFT [facility] Last Admin: 03/16/21 07:13 Dose: Not Given Documented by: Home Medications Medication Instructions Recorded Confirmed Last Taken Type acetaminophen 500 mg tablet 1,000 mg PO Q6H PRN 01/20/20 03/07/21 Unknown History (Tylenol Extra Strength) ibuprofen 200 mg capsule 400 mg PO Q8H PRN 01/20/20 03/07/21 Unknown History Physical Exam Vital Signs and Narrative: Vital Signs: Last Vital Signs Temp 97.6 F 03/16/21 07:47 Pulse 82 03/16/21 07:47 Resp 18 03/16/21 07:47 BP 166/76 H 03/16/21 07:47 Pulse Ox 98 03/16/21 07:47 BMI result Body Mass Index 37.2 Const: Other: Constitutional - Awake and Alert, No apparent distress Eyes - PERRLA, EOMI Cardiovascular - S1S2, RRR, No edema Respiratory - Normal lung expansion, Normal respiratory effort, No respiratory distress, CTA bilaterally Gastrointestinal - NT / ND; +BS; No rebound or guarding - No CVA tenderness Extremities - no calf tenderness bilaterally, no swelling Musculoskeletal - Normal inspection, normal ROM Skin - Warm/Dry Neurological - Alert & oriented x3, No focal deficit Psychological - Appropriate affect Results Labs CBC and Chem 7: 03/16/21 05:29 03/16/21 05:29 Labs: Laboratory Results - last 24 hr 03/16/21 03/16/21 05:29 05:29 MCV 94.3 MCH 31.8 MCHC 33.7 RDW 12.7 Plt Count 215 MPV 10.3 Immature Gran % (Auto) 0.3 Neut % (Auto) 74.5 H Lymph % (Auto) 17.4 L [place] % (Auto) 7.7 Eos % (Auto) 0.0 Baso % (Auto) 0.1 Lymph # (Auto) 2.0 [place] # (Auto) 0.9 Eos # (Auto) 0.0 Baso # (Auto) 0.0 Abs Immat Gran (auto) 0.03 Absolute Neuts (auto) 8.7 H Absolute Nucleated RBC 0.000 Nucleated RBC % (auto) 0.0 Anion Gap 10 L Estim Creat Clear Calc 97.9 Estimated GFR > 60 Fasting Glucose 136 H Calcium 8.4 D Imaging Radiologist's Impressions: Impressions Knee X-Ray 03/15/21 11:52 IMPRESSION: Status post total right knee arthroplasty with prosthetic components in satisfactory alignment. There are immediate postoperative changes noted. Assessment and Plan (1) Status post total left knee replacement: Status: Acute (2) Elevated blood pressure reading with diagnosis of hypertension: Status: Acute This is a 60 yo F with no significant PMH who is s/p elective L TKA. Medical services consulted for management of her post operative medical issues. 1. S/P L TKA currently no active medical issues. Monitor for routine post-op complications. Otherwise, management per orthopedics. 2. Elevated blood pressure No prior diagnosis of HTN Likely secondary to pain. Monitor for now. Outpatient f/u with PCP. No active or chronic medical issues. Will sign off at this time. Please reconsult with questions.
--- NOTE | 2021-03-16 11:29 | PC.NURSE ---
skin assessment completed. Patient has surgical incision to left knee. Dressing C/D/I. No other skin issues noted at this time.
[2021-03-16 11:43] VITALS: BP 164/76; PULSE 79; RESP 18; TEMP 36.5; O2SAT 97
--- NOTE | 2021-03-16 15:46 | HO.POSTANES ---
Post Anesthesia Evaluation Post Anesthesia Evaluation Vital Signs: Vital Signs Temp Pulse Resp BP Pulse Ox 03/16/21 11:43 97.7 F 79 18 164/76 H 97 03/16/21 07:47 97.6 F 82 18 166/76 H 98 Anesthesia: Spinal and Nerve Block Mental Status: Awake Pain Control: Satisfactory Nausea/Vomiting: None Hydration: Adequate Anesthesia-Related Issues: No Anes. Related Issues
[2021-03-16 16:00] VITALS: BP 174/75; PULSE 80; RESP 17; TEMP 36; O2SAT 97
[2021-03-16 19:50] VITALS: BP 170/72; PULSE 82; RESP 17; TEMP 37; O2SAT 97
[2021-03-16] MEDS: 0.9 % Sodium Chloride Flush 3 ML SYRINGE IVFLUSH (21:09)
[2021-03-17] VITALS: BP 142/72; PULSE 86; RESP 18; TEMP 36.6; O2SAT 97
[2021-03-17] MEDS: Acetaminophen 325 MG TABLET 650 MG PO ×2 (01:14→07:15)
[2021-03-17] MEDS: oxyCODONE HCl Immed Release 5 MG TABLET PO ×2 (01:14→09:43)
[2021-03-17 03:28] VITALS: BP 139/69; PULSE 78; RESP 16; TEMP 37.2; O2SAT 94
[2021-03-17 05:38] LABS: MANUAL DIFF FLAG NO
[2021-03-17 05:44] LABS: Basophils Percent Auto 0.3 % (0-2); Eosinophils Absolute Auto 0.2 X10*3/uL (0.0-0.4); Eosinophils Percent Auto 1.7 % (0-4); Hematocrit 31.5 % (37.0-47.0); Hemoglobin 10.7 g/dl (12.0-16.0); Imm Gran Abs Auto 0.04 X10*3/uL (0.00-0.03); Imm Gran Pct Auto 0.4 % (0.0-0.4); Lymphocytes Absolute Auto 2.7 X10*3/uL (1.2-4.9); Lymphocytes Percent Auto 25.3 % (20-40); Mean Corpuscular Hemoglobin 32.3 pg (27.0-33.0); Mean Corpuscular Volume 95.2 fL (80.0-98.0); Monocytes Absolute Auto 0.7 X10*3/uL (0.1-1.2); Monocytes Percent Auto 6.8 % (2-11); Neutrophils Percent Auto 65.5 % (45-73); Platelet Count 182 X10*3/uL (160-400); Red Blood Count 3.31 X10*6/uL (4.20-5.50); Red Cell Distribution Width 12.9 % (11.0-16.0); White Blood Count 10.7 X10*3/uL (4.8-10.8)
[2021-03-17 05:57] LABS: Anion Gap 10 (12-20); Blood Urea Nitrogen 5 mg/dL (9-16); Calcium 8.4 mg/dL (8.4-10.2); Carbon Dioxide 26 mmol/L (22-29); Chloride 107 mmol/L (96-108); Creatinine Clr Calc Pharmacy 94.9; Estimated Glomerular Filt Rate > 60; Glucose Fasting 104 mg/dL (60-99); Potassium 3.7 mmol/L (3.3-5.1); Sodium 139 mmol/L (135-145)
[2021-03-17] MEDS: 0.9 % Sodium Chloride Flush 3 ML SYRINGE IVFLUSH (07:14)
[2021-03-17] MEDS: Aspirin 325 MG TABLET PO (07:14)
[2021-03-17] MEDS: Celecoxib 200 MG CAPSULE PO (07:15)
[2021-03-17] MEDS: Docusate Sodium 100 MG CAPSULE PO (07:15)
[2021-03-17] MEDS: oxyCODONE HCl ER 10 MG TAB.ER.12H PO (07:15)
[2021-03-17 08:00] VITALS: BP 158/89; PULSE 82; RESP 18; TEMP 37.1; O2SAT 96
--- NOTE | 2021-03-17 08:59 | P.DS_ITS ---
DS: Providers Provider Date of Service: 03/23/21 Date of admission: 03/15/21 07:36 Primary care physician: Jeniffer Colunga MD Consults: 03/15/21 19:41 Consult to Hospitalist Routine Consulting Provider: Hospitalist Reason For Exam: post op medical management DS: Diagnosis Discharge Diagnosis (1) Status post total left knee replacement: Status: Acute DS: Summary Hospital Course Hospital Course: The patient underwent a successful left total knee arthroplasty, was transferred to PACU and then to the floor to recover. During their stay, their vitals were stable, afebrile at 98.7. Labs were unremarkable, H/H 10.7/31.5 . POD 1 she was started on ASA for DVT ppx, they also received services twice a day. Prior to discharge, their dressing was change, incision clean dry and intact, new Aquacel dressing applied and the plan was to be discharged home with vna svs Time Spent with Patient Time attestation: Total time spent providing and/or coordinating discharge services: Discharge coordination time: Less than 30 minutes Quality: Stroke Does the patient have a stroke diagnosis?: No Physical Exam Vital Signs: Vital Signs: Last Vital Signs Temp 98.7 F 03/17/21 08:00 Pulse 82 03/17/21 08:00 Resp 18 03/17/21 08:00 BP 158/89 H 03/17/21 08:00 Pulse Ox 96 03/17/21 08:00 BMI result Body Mass Index 37.2 Const: General: cooperative, healthy appearing and no acute distress Resp: Effort & Inspection: normal respiratory effort and able to speak in complete sentences Cardio: Rate: regular rate Peripheral pulses: Peripheral pulses 2+ throughout GI: Palpation (GI): Soft to palpation Skin: General skin exam: no rashes or lesions noted Extrem: Other: incision clean dry and intact. [place] intact. No erythema or joint effusion. Calf supple nontender. Neurovascularly intact. DS: Data Data Completed and Pending Pending studies at discharge: Pending at discharge 03/15/21 11:00 Surgical [PTH] Routine Labs on day of discharge: Laboratory Results - last 24 hr 03/17/21 03/17/21 05:31 05:31 WBC 10.7 RBC 3.31 L Hgb 10.7 L Hct 31.5 L MCV 95.2 MCH 32.3 MCHC 34.0 RDW 12.9 Plt Count 182 MPV 10.0 Immature Gran % (Auto) 0.4 Neut % (Auto) 65.5 Lymph % (Auto) 25.3 [place] % (Auto) 6.8 Eos % (Auto) 1.7 Baso % (Auto) 0.3 Lymph # (Auto) 2.7 [place] # (Auto) 0.7 Eos # (Auto) 0.2 Baso # (Auto) 0.0 Abs Immat Gran (auto) 0.04 H Absolute Neuts (auto) 7.0 Absolute Nucleated RBC 0.000 Nucleated RBC % (auto) 0.0 Sodium 139 Potassium 3.7 Chloride 107 Carbon Dioxide 26 Anion Gap 10 L BUN 5 L Creatinine 0.65 Estim Creat Clear Calc 94.9 Estimated GFR > 60 Fasting Glucose 104 H Calcium 8.4 Discharge Plan Discharge Patient Disposition: Home Health Service Discharge Diagnosis: s/p LT TKA Referrals: [facility] [Outside] - 1 Week Tennille [place] PA-C [Physician Classroom Monitor] - 2 Weeks (03/31/21 11:30 [facility] [place] PA-C) Discharge Medications: New acetaminophen 325 mg Tablet 650 mg PO Q6H PRN (Reason: Pain, Mild (Pain Scale 1-3)) 30 Days Qty: 240 RF: 0 aspirin 325 mg Tablet 325 mg PO BID 42 Days Qty: 84 RF: 0 docusate sodium 100 mg Capsule 100 mg PO BID 14 Days Qty: 28 RF: 0 oxycodone 5 mg Tablet 5 mg PO Q4H PRN (Reason: Pain, Moderate (Pain Scale 4-6) 7 Days Qty: 42 RF: 0 Continued lidocaine [Hemorrhoidal Relief] 5 % cream 1 appl topical BID PRN (Reason: pain) Qty: 28.35 RF: 0 mometasone 50 mcg/actuation spray,non-aerosol 2 spray intranasal DAILY PRN (Reason: nasal congestion) Qty: 17 RF: 0 (DME) [facility] [place] .MEDSUPPLY Qty: 1 RF: 0 Discontinued ibuprofen 200 mg capsule 400 mg PO Q8H PRN (Reason: Pain) RF: 0 acetaminophen [Tylenol Extra Strength] 500 mg tablet 1,000 mg PO Q6H PRN (Reason: Pain) RF: 0 No Action lorazepam 0.5 mg tablet 0.5 mg PO DAILY PRN (Reason: anxiety) Qty: 10 RF: 0 sulfamethoxazole-trimethoprim [Bactrim DS] 800-160 mg tablet 1 tab PO BID Qty: 10 RF: 0 nitrofurantoin macrocrystal 100 mg capsule 100 mg PO Q12H 10 Days Qty: 20 RF: 0 Discharge Orders: Discharge Order (Routine); Ordered 03/17/21 Ordered By: Trey Coleman Diet: regular diet Activity on Discharge: Use cane or walker Stand Alone Forms: Patient Portal Discharge page Care Plan Goals: Restore function of joint Health Concerns: none Plan of Treatment: Physical Therapy Pain management DVT prophylaxis Assessment: * Physical Therapy for Total knee arthroplasty: gait training, ROM 0-12, quad strength * Limit stair climbing * No showering, no tub bath-keep dressing clean, dry and intact * No driving x6 weeks * Continue Aspirin twice a day x 6 weeks * Follow up with [facility] in 2 weeks Discharge Date/Time: 03/17/21 09:50
--- NOTE | 2021-03-17 09:10 | MHC.CM.PN ---
Addendum entered by Ilda Porras 03/17/21 09:14: PATIENT HAS A WALKER IN THE HOME. SHE IS FULLY INDEPENDENT WITH ALL ADLS. NO DME OR VNA BUT IS AWARE AND IN AGREEMENT WITH [facility] HER BOYFRIEND/HCP IS PROVIDING THE TRANSPORT HOME COPY OF HCP REQUESTED TO BE BROUGHT IN FOR MEDICAL RECORDS Original Note: PATIENT IS DC TO HOME WITH A REFERRAL TO [facility] FOR HOME [facility]ICAL THERAPY. SHE HAS ARRANGED FOR TRANSPORT HOME. RN AWARE OF PLAN.
--- NOTE | 2021-03-17 09:29 | W.MHC.F2F ---
Service Date Service Date: 03/17/21 Encounter Date of encounter: 03/17/21 Reasons for Services Reason for physical therapy: home safety and mobility, therapeutic exercises, restore joint function, gait/transfer training, ADL training and energy conservation Reason for occupational therapy: home safety and mobility, therapeutic exercises, restore joint function, gait/transfer training, ADL training and energy conservation MD Overseeing Care: Neno Jin Homebound: Leaving the home is medically contraindicated at this time without the asist of a device and/or another person due th the listed conditions above and below. Reason homebound: unsteady gait / fall risk, pain with ambulation, pain with transfers, poor balance / fall risk and unable to drive Homebound supporting statement: Pt. is considered home bound due to recent surgery. Unable to drive, poor balance, poor gait mechanics. Certification: Based on the above findings, I certify that this patient is confined to the home and needs intermittent custodial care, physical therapy and/or speech therapy, or continues to need occupational therapy. The patient is under my care, and I have initiated the establishment of the plan of care. The patient will be followed by a physician who will periodically review the plan of care.
== END 2021-03-17 09:50 | disposition home health service (06) | DRG 326 ==
LOC: HO.SSSA 07:43 → HO.S3 18:22
PROVIDERS: Physician Assistant; Admitting Provider Orthopaedic Surgery; PCP Internal Medicine; Visit Provider Orthopaedic Surgery
PROC: 0SRD0J9 Replacement of Left Knee Joint with Synthetic Substitute, Cemented, Open Approach (ICD-10-PCS; CPT 27447; principal; 2021-03-15 09:30)
DX: M17.12 Unilateral primary osteoarthritis, left knee (principal); F17.210 Nicotine dependence, cigarettes, uncomplicated; Z20.822 Contact with and (suspected) exposure to COVID-19; Z71.6 Tobacco abuse counseling; Z88.0 Allergy status to penicillin; Z79.899 Other long term (current) drug therapy
CPT/HCPCS: 36415; 73560; 80048; 85025; 86850; 86900; 86901; 87635; 87640; 87641; 88305; 88311; 94640; 97110; 97116; 97161; C1776; J1100; J1170; J1200; J2250; J2370; J3370

== ENCOUNTER 2021-03-18 10:35 | Outpatient (REF) | payer OTHER, SELFPAY ==
[2021-03-18 11:42] LABS: Appearance Urine CLEAR; Color Urine YELLOW; Glucose Urine UA NEG (NEG); Leukocyte Esterase Urine TRACE (NEG); Nitrite Urine NEG (NEG); Specific Gravity - Urine <= 1.005 (1.005-1.025); UACC Culture Trigger YES; Urine Blood NEG (NEG); Urine Ketones NEG (NEG); Urine Protein NEG (NEG-TRACE)
[2021-03-18 13:01] LABS: Squamous Epithelial Cell Urine TRACE /LPF
[2021-03-18 13:02] LABS: Bacteria Urine 3+ /LPF; RBC Urine 0 /HPF (0)
== END 2021-03-18 10:36 | disposition home or self-care (01) ==
LOC: HO.HMGCLNP 10:35
PROVIDERS: Visit Provider Internal Medicine
DX: R30.0 Dysuria (principal)
CPT/HCPCS: 81001; 87086; 87088; 87186

== ENCOUNTER → 2021-03-31 10:54 | Outpatient (BNVA) | payer OTHER, SELFPAY | PROVIDERS: PCP Internal Medicine; Visit Provider Physician Assistant | DX: Z47.1 Aftercare following joint replacement surgery (principal); Z96.652 Presence of left artificial knee joint | CPT/HCPCS: 99212 ==

== ENCOUNTER → 2021-04-28 15:46 | Outpatient (BNVA) | payer OTHER, SELFPAY | PROVIDERS: PCP Internal Medicine; Visit Provider Physician Assistant | DX: Z47.1 Aftercare following joint replacement surgery (principal); Z96.652 Presence of left artificial knee joint | CPT/HCPCS: 99212 ==

== ENCOUNTER 2021-06-07 13:00 | Outpatient (RCR) | payer OTHER, SELFPAY ==
--- NOTE | 2021-03-31 12:40 | MHC.PT.EP ---
[facility] [place] Office [place] Office [place] Office [address] Brittni Callejas [address] [phone] F: [phone] F: [phone] F: [phone] F: [phone] Physical Therapy Plan of Care Date of Evaluation: Date of Surgery: 03/15/21 Diagnosis: S/P LEFT TKR 03/15/21 Assessment: 60 YO FEMALE REF TO PT S/P LEFT TKR 03/15/21 AND IS SEEN IN [facility] FOR F/U, STAPLE REMOVAL, AND PT EVAL. SHE RESIDES W SPOUSE AND IS CURRENTLY AMB W A W/WALKER- Pt IS MOD INDEP W DRESSING/ HYGIENE AND WAS D/C'D FROM HOME VNA PT 03/30/21. OBJECTIVE FINDINGS: HEALING INCISION Lt ANT KNEE, DECR ROM Lt KNEE, WEAK Lt QUAD/ PROX LE MM, AND FLUCTUATING GENERAL LEFT KNEE PAIN. FUNCTIONALLY, Pt VALE MODIFIED INDEP GAIT W W/WALKER (DECR STANCE PHASE LEFT) , INCR UEs USE W TRANSFERS, AND IN STATIC STAND SHE POSTURES LEFT KNEE IN SL FLEX. Pt IS MOTIVATED FOR PT AND IS A GREAT CANDIDATE TO GUIDE HER IN HER POST-OP COURSE TO MAXIMIZE HER FUNCTIONAL INDEPENDENCE. Frequency and Duration: The patient will be seen 2x WK x 6 WKS Short Term Goals: Pt'S LEFT KNEE PAIN DECR TO 2-3/10 IN 2 WKS Pt DEMON INCR AROM Lt KNEEN0*- 120* IN 3 WKS IMPROVE GAIT MECHANICS W AD ON LEVEL GROUND AND STAIRS IN 2 WKS MONITOR AND APPROP ED Pt RE SELF INCISIONAL SCAR MOB Lt ANT KNEE IN 3 WKS Public Health Nutritionist Goals: Pt INDEP W HEP PROGR AND SX MGMT TECHN IN 6 WKS Pt RESUME REG ADLs EVIDENT W INCR LEFI SCORE BY 10 POINTS (AT EVAL 25/80) IN 6 WKS Pt VALE IMPROVED STRENGTH Lt LE BY 1/2 TO 1 GRADE IN 6 WKS Treatment Plan: Modalities to reduce pain, spasms and effusion. Manual therapy to restore motion and function. Therapeutic exercise to improve strength and flexibility. Neuromuscular re-education for posture and balance. Therapeutic activities to return to functional activities of daily living. Electronically signed by: Daisy Young PT Please sign and return to therapist. Thank you for your referral.
--- NOTE | 2021-08-05 11:04 | MHC.PT.DC ---
[facility] [place] Office [place] Office [place] Office [address] Brittni Callejas [address] [phone] F: [phone] F: [phone] F: [phone] F: [phone] Physical Therapy Discharge Report Diagnosis: S/P LEFT TKR 03/15/21 Date of Surgery: 03/15/21 Date of Evaluation: 03/31/21 Date of Discharge: 08/05/21 Treatments to Date: 16 Cancellations to Date: No Shows to Date: 1 Discharge Status: Achieved Goals Improved Function Independent with HEP Discharge Summary: Pt did not attend her last session for final assessment though had recovered well and had met most of her goals and is I with her home program. Electronically signed by: Meño Saldana PT. Please sign and return to therapist. Thank you for your referral.
== END 2021-08-05 11:05 | disposition home or self-care (01) ==
LOC: HO.PTCHIC 13:00
PROVIDERS: Visit Provider Orthopaedic Surgery
DX: Z96.652 Presence of left artificial knee joint (principal)
CPT/HCPCS: 97014; 97110; 97112; 97116; 97140; 97161; 97530

== ENCOUNTER 2021-06-09 12:24 | Outpatient (REF) | payer OTHER, SELFPAY ==
--- NOTE | ~2021-06-09 | XR_ITS ---
EXAMINATION:XR knee standing BI, XR knee LT 2V CLINICAL INFORMATION: Reason for Exam M25.569 - Pain in unspecified knee COMPARISON: March 2021 TECHNIQUE: Bilateral frontal standing, left lateral and patella sunrise view. FINDINGS: BONES: No fracture or dislocation is present. JOINTS: There is total left knee replacement prosthesis device, both femoral and tibial component of which is properly positioned maintaining normal alignment's. No radiologic evidence of device loosening. Patella properly positioned. SOFT TISSUE: Normal XR/XR knee LT 2V IMPRESSION: Status post total knee replacement. The prosthesis is properly positioned stable.. Moderate DJD right knee.
--- NOTE | ~2021-06-09 | XR_ITS ---
EXAMINATION:XR knee standing BI, XR knee LT 2V CLINICAL INFORMATION: Reason for Exam M25.569 - Pain in unspecified knee COMPARISON: March 2021 TECHNIQUE: Bilateral frontal standing, left lateral and patella sunrise view. FINDINGS: BONES: No fracture or dislocation is present. JOINTS: There is total left knee replacement prosthesis device, both femoral and tibial component of which is properly positioned maintaining normal alignment's. No radiologic evidence of device loosening. Patella properly positioned. SOFT TISSUE: Normal XR/XR knee standing BI IMPRESSION: Status post total knee replacement. The prosthesis is properly positioned stable.. Moderate DJD right knee.
== END 2021-06-09 12:25 | disposition home or self-care (01) ==
LOC: HO.HOSX 12:24
PROVIDERS: Visit Provider Orthopaedic Surgery
DX: Z47.1 Aftercare following joint replacement surgery (principal); Z96.652 Presence of left artificial knee joint
CPT/HCPCS: 73560; 73565; 99212

== ENCOUNTER → 2021-07-21 15:46 | Outpatient (BNVA) | payer OTHER, SELFPAY | PROVIDERS: PCP Internal Medicine; Visit Provider Orthopaedic Surgery | DX: Z47.1 Aftercare following joint replacement surgery (principal); Z96.652 Presence of left artificial knee joint | CPT/HCPCS: 99212 ==

== ENCOUNTER 2021-08-03 07:03 | Outpatient (REF) | payer OTHER, SELFPAY ==
[2021-08-03 11:35] LABS: MANUAL DIFF FLAG NO
[2021-08-03 11:46] LABS: Basophils Percent Auto 0.4 % (0-2); Eosinophils Absolute Auto 0.2 X10*3/uL (0.0-0.4); Eosinophils Percent Auto 2.6 % (0-4); Hematocrit 42.1 % (37.0-47.0); Imm Gran Abs Auto 0.03 X10*3/uL (0.00-0.03); Imm Gran Pct Auto 0.4 % (0.0-0.4); Lymphocytes Absolute Auto 2.6 X10*3/uL (1.2-4.9); Lymphocytes Percent Auto 34.7 % (20-40); Mean Corpuscular HGB Conc 33.3 g/dl (31.0-35.0); Mean Corpuscular Hemoglobin 31.2 pg (27.0-33.0); Mean Corpuscular Volume 93.8 fL (80.0-98.0); Mean Platelet Volume 10.7 fL (9.4-12.3); Monocytes Absolute Auto 0.4 X10*3/uL (0.1-1.2); Monocytes Percent Auto 5.8 % (2-11); Neutrophils Absolute Auto 4.2 x10*3/uL (2.0-8.3); Neutrophils Percent Auto 56.1 % (45-73); Platelet Count 282 X10*3/uL (160-400); Red Blood Count 4.49 X10*6/uL (4.20-5.50); Red Cell Distribution Width 14.1 % (11.0-16.0); White Blood Count 7.6 X10*3/uL (4.8-10.8)
[2021-08-03 12:03] LABS: Alanine Aminotransferase 15 U/L (0-31); Anion Gap 12 (12-20); Aspartate Amino Transferase 18 U/L (5-31); Blood Urea Nitrogen 10 mg/dL (9-16); Calcium 9.9 mg/dL (8.4-10.2); Carbon Dioxide 25 mmol/L (22-29); Chloride 107 mmol/L (96-108); Cholesterol 263 mg/dL; Estimated Glomerular Filt Rate > 60; Glucose Fasting 95 mg/dL (60-99); HDL Cholesterol 50 mg/dL; Iron 101 mcg/dL (30-160); LDL Cholesterol Calculated 176 mg/dl; Percent Iron Saturation 31 % (15-50); Potassium 4.2 mmol/L (3.3-5.1); Sodium 140 mmol/L (135-145); Total Iron Binding Capacity 326 mcg/dL (228-428); Triglycerides 188 mg/dL; Unsaturated Iron Binding 225 ug/dL
[2021-08-03 12:25] LABS: TSH reflex Free T4 3.22 uIU/mL (0.32-4.0); Vitamin D 25-OH Total 44.1 ng/mL (>30)
== END 2021-08-03 07:04 | disposition home or self-care (01) ==
LOC: HO.HMGCLDS 07:03
PROVIDERS: Visit Provider Internal Medicine
DX: Z00.01 Encounter for general adult medical examination with abnormal findings (principal); E78.5 Hyperlipidemia, unspecified; R73.01 Impaired fasting glucose; Z78.0 Asymptomatic menopausal state
CPT/HCPCS: 36415; 80048; 80061; 82306; 83540; 84443; 84450; 84460; 85025

== ENCOUNTER → 2021-08-19 08:27 | Outpatient (BNVA) | payer OTHER, SELFPAY | PROVIDERS: PCP Internal Medicine; Visit Provider Internal Medicine | DX: M76.829 Posterior tibial tendinitis, unspecified leg (principal); M72.2 Plantar fascial fibromatosis; M54.50 Low back pain, unspecified; G89.29 Other chronic pain | CPT/HCPCS: 99202 ==

== ENCOUNTER 2021-12-23 08:53 | Outpatient (REF) | payer MEDICARE, MEDICAID, SELFPAY ==
--- NOTE | ~2021-12-23 | MM_ITS ---
EXAMINATION: MM SCREENING DIGITAL BREAST TOMOSYNTHESIS, BILATERAL CLINICAL INFORMATION: Screening. Asymptomatic. The lifetime risk of breast cancer based on the Tyrer-Cuzick Model is 5%. COMPARISON: Mammography: 06/11/2020, 01/20/2019, 11/21/2017 TECHNIQUE: Digital breast tomosynthesis is performed in both the craniocaudal and mediolateral oblique views along with computer-aided detection (CAD). Synthesized 2D images are generated from the tomosynthesis. FINDINGS: There are scattered areas of fibroglandular density (ACR BI-RADS breast composition Category b). There are no significant masses, abnormal calcifications, or other abnormalities. There is a dermal lesion again seen overlying the posterior lower inner left breast. The parenchymal pattern is similar to prior studies. The axilla are unremarkable. MM/MM tomosynthesis screening BI IMPRESSION: No mammographic evidence of malignancy. ASSESSMENT: BI-RADS 2: Benign RECOMMENDATION: Routine annual mammography screening. This patient's information was entered into a reminder system with a target due date for their next mammogram.
== END 2021-12-23 08:54 | disposition home or self-care (01) ==
LOC: HO.MAMMO 08:53
PROVIDERS: PCP Internal Medicine; Visit Provider Advanced Practice Midwife
DX: Z12.31 Encounter for screening mammogram for malignant neoplasm of breast (principal)
CPT/HCPCS: 77063; 77067

== ENCOUNTER 2022-01-30 07:15 | Day surgery (SDC) | payer MEDICARE, MEDICAID, SELFPAY ==
--- NOTE | 2022-01-27 09:54 | P.CONAN_ITS ---
Documented by User: Megan Joy NP 01/27/22 09:55 HPI - Anesthesia Eval Consult details Narrative: 61yo F for Colonoscopy s/p TKA 03/2021 with Spinal/Block PMFSH Active Problems Active Problems: All Active Problems (Updated 11/08/21 @ 13:56 by Faye Pina) Encounter for annual routine gynecological examination (Acute) Tibialis posterior dysfunction (Acute) Vaccination refused by patient (Acute) Chronic low back pain (Acute) Impaired fasting glucose (Acute) Dyslipidemia (Acute) Tubular adenoma of colon (Acute) Status post total left knee replacement (Acute) Primary osteoarthritis of right knee (Acute) Primary osteoarthritis of left knee (Acute) Lumbar spondylosis (Acute) Plantar fasciitis, bilateral (Acute) Allergic rhinitis (Acute) Refused influenza vaccine (Acute) Not ready to quit smoking (Acute) Anxiety (Acute) Past Medical History Medical History Anxiety Asymptomatic age-related postmenopausal state Chronic low back pain Dyslipidemia Elevated blood pressure reading with diagnosis of hypertension Encounter for general adult medical examination with abnormal findings Impaired fasting glucose Internal bleeding hemorrhoids Nonscarring hair loss Not ready to quit smoking Refused influenza vaccine Tubular adenoma of colon Vaccination refused by patient Family History Family History Father Myocardial infarction CVD (cardiovascular disease) Mother Depression Sister No problems noted. Maternal Grandmother No problems noted. Maternal Grandfather No problems noted. Paternal Grandfather No problems noted. Paternal Grandmother No problems noted. Son No problems noted. Son No problems noted. Other Substance use disorder Family history of problems with anesthesia: No Surgical History Surgical History Hx of colonoscopy Hx of total knee arthroplasty Hx of tubal ligation History of Problems with Anesthesia: No Social History Social History Household Members: Spouse Housing: House Are you a primary senior care manager to a significant other at home: No Do you presently have visiting nurse or other home services: No Alcohol intake: current Alcohol intake frequency: does not drink Alcohol type: beer and wine Patient Tobacco Use Status: Current everyday Tobacco user Tobacco use type: Cigarette Cigarette Packs Per Day: 0.5 Cigarettes Per Day: 10.0 Years Smoked: 40 e-Cigarette/Vaping Use: Never Used Second Hand Smoke Exposure: Yes Use of substances other than those prescribed or required for medical reasons: No Are you DNR?: No Advance Directives: No Advance Directives Information Provided: Yes Advance Directives on File: No service: No Current occupational status: disabled Current occupation: right handed Cognitive needs: No Hearing needs: No Vision needs: No Meds Allergies Allergy/AdvReac Type Severity Reaction Status Date / Time Penicillins [PENICILLINS] Allergy Severe RASH- Verified 11/08/21 13:45 1970's very bad rash vancomycin Allergy Itching Verified 11/08/21 13:45 Exam Exam Date and Time: January 27, 2022953 Assessment and Plan Assessment Anesthesia Assessment: Chart Reviewed Final Anesthetic Review Family History of Problems with Anesthesia: No History of Problems with Anesthesia: No Documented by User: Priscilla Buenrostro MD 01/30/22 08:03 [facility] Past Medical History Medical History Anxiety Asymptomatic age-related postmenopausal state Chronic low back pain Dyslipidemia Elevated blood pressure reading with diagnosis of hypertension Encounter for general adult medical examination with abnormal findings Impaired fasting glucose Internal bleeding hemorrhoids Nonscarring hair loss Not ready to quit smoking Refused influenza vaccine Tubular adenoma of colon Vaccination refused by patient Family History Family History Father Myocardial infarction CVD (cardiovascular disease) Mother Depression Sister No problems noted. Maternal Grandmother No problems noted. Maternal Grandfather No problems noted. Paternal Grandfather No problems noted. Paternal Grandmother No problems noted. Son No problems noted. Son No problems noted. Other Substance use disorder Surgical History Surgical History Hx of colonoscopy Hx of total knee arthroplasty Hx of tubal ligation Social History Social History Household Members: Spouse Housing: House Are you a primary senior care manager to a significant other at home: No Do you presently have visiting nurse or other home services: No Alcohol intake: current Alcohol intake frequency: does not drink Alcohol type: beer and wine Patient Tobacco Use Status: Current everyday Tobacco user Tobacco use type: Cigarette Cigarette Packs Per Day: 0.5 Cigarettes Per Day: 10.0 Years Smoked: 40 e-Cigarette/Vaping Use: Never Used Second Hand Smoke Exposure: Yes Use of substances other than those prescribed or required for medical reasons: No Are you DNR?: No Advance Directives: No Advance Directives Information Provided: Yes Advance Directives on File: No service: No Current occupational status: disabled Current occupation: right handed Cognitive needs: No Hearing needs: No Vision needs: No Meds Allergies Allergy/AdvReac Type Severity Reaction Status Date / Time Penicillins [PENICILLINS] Allergy Severe RASH- Verified 11/08/21 13:45 1970's very bad rash vancomycin Allergy Itching Verified 11/08/21 13:45 Exam Airway Mallampati Class: II TM Dist: >3cm Neck ROM: Full Partial: Upper Loose/Missing/Broken Teeth: Yes and Upper Heart: RRR Lungs: CTA Assessment and Plan Assessment Anesthesia Assessment: Anesthesia Plan Discussed Final Anesthetic Review NPO: Yes ASA Class: II Final Preanesthetic Review: Meds/Allgs Chart Reviewed, Consent Obtained/Reviewed and Anes Risks/Benef Reviewed Patient Risk: Low Procedure Risk: Low Anesthetic Plan Anesthetic Plan: MAC: Disposition: Standard PACU
[2022-01-30 07:26] VITALS: BMI 32.9
[2022-01-30 07:34] VITALS: BP 142/84; PULSE 78; RESP 16; TEMP 36.2; O2SAT 97
[2022-01-30] MEDS: Lactated Ringers 1,000 ML 100 ML IVCONT (07:40)
[2022-01-30 09:09] VITALS: BP 98/59; PULSE 67; RESP 16; TEMP 36.1; O2SAT 98
--- NOTE | 2022-01-30 09:10 | P.BOP_ITS ---
Brief Operative Note Date of Service: 01/30/22 Pre-op diagnosis: Screening Post-op diagnosis: other (Diverticulosis) Procedure: Colonoscopy to the cecum and TI Surgeon: Steve New Anesthesia: MAC Was an Air Route Controller used for this Procedure?: No Estimated blood loss (mL): 0 Pathology: none sent Condition: stable Disposition: PACU
[2022-01-30 09:24] VITALS: BP 113/70; PULSE 64; RESP 16; O2SAT 95
[2022-01-30 09:39] VITALS: BP 126/67; PULSE 66; RESP 18; TEMP 36.2; O2SAT 98
--- NOTE | 2022-01-30 20:29 | OP_ITS ---
SURGEON: Steve eNw MD INDICATIONS: The patient presents for followup of personal history of tubular adenoma of the colon and colorectal cancer screening. Full consent has been obtained from her for this, including risks of bleeding and perforation. PREOPERATIVE DIAGNOSIS: Colorectal cancer screening and personal history of tubular adenoma of the colon. POSTOPERATIVE DIAGNOSIS: PROCEDURE PERFORMED: Colonoscopy to the cecum and terminal ileum. ESTIMATED BLOOD LOSS: COMPLICATIONS: ANESTHESIA: Monitored anesthesia care. ASSISTANTS: SPECIMENS: POSTOPERATIVE DIAGNOSES: Colorectal cancer screening and personal history of tubular adenoma of the colon, diverticulosis, and internal and external hemorrhoids. DESCRIPTION OF PROCEDURE: The patient was placed in the left lateral decubitus position. The digital rectal exam revealed no abnormalities other than an external hemorrhoid. The Olympus video pediatric colonoscope was entered into the rectum and advanced easily to the cecum. Once in the cecum, I did identify normal-appearing cecal pouch with appendiceal orifice and a normal-appearing ileocecal valve. The terminal ileum was cannulated and appeared normal. The scope was withdrawn back in the colon. The entire cecum and ileocecal valve appeared normal. The scope was slowly withdrawn assessing all mucosal surfaces carefully. Preparation was excellent. I did not visualize any sign of polyps, colitis, nor angiodysplasia. There was a mild amount of sigmoid diverticulosis. In the rectum, scope was retroflexed visualizing internal hemorrhoids, but no other pathology. The rectal mucosa appeared normal. The scope was straightened and withdrawn the patient. She tolerated the procedure well and was returned to the recovery area in stable condition. IMPRESSION: 1. Sigmoid diverticulosis. 2. Internal and external hemorrhoids. PLAN: I would recommend a repeat colonoscopy in 5 years for further screening given the previous history of a tubular adenoma. She will otherwise see me on a p.r.n. basis. MD GIOVANNA Vences/VIKAS / [id number]
== END 2022-01-30 09:55 | disposition home or self-care (01) ==
PROVIDERS: PCP Internal Medicine; Visit Provider Internal Medicine
PROC: 0DJD8ZZ Inspection of Lower Intestinal Tract, Via Natural or Artificial Opening Endoscopic (ICD-10-PCS; CPT 45378; principal; 2022-01-30 07:30)
DX: Z12.11 Encounter for screening for malignant neoplasm of colon (principal); Z86.010 Personal history of colon polyps; K57.30 Diverticulosis of large intestine without perforation or abscess without bleeding; K64.8 Other hemorrhoids; K64.4 Residual hemorrhoidal skin tags; Z79.899 Other long term (current) drug therapy; Z88.0 Allergy status to penicillin; Z88.1 Allergy status to other antibiotic agents; F17.210 Nicotine dependence, cigarettes, uncomplicated; K58.9 Irritable bowel syndrome, unspecified
CPT/HCPCS: G0105

== ENCOUNTER 2022-04-14 12:20 | Outpatient (REF) | payer MEDICARE, MEDICAID, SELFPAY ==
--- NOTE | ~2022-04-14 | XR_ITS ---
EXAMINATION: XR KNEE, LEFT CLINICAL INFORMATION: Left artificial knee joint COMPARISON: 06/09/2021 TECHNIQUE: Four views of the left knee. FINDINGS: There is a total left knee arthroplasty. The distal femoral component articulates appropriately with the tibial and patellar components. No periprosthetic lucency or fracture. No joint effusion. The soft tissues are unremarkable. XR/XR knee LT 4V IMPRESSION: Total left knee arthroplasty in typical positioning and alignment.
== END 2022-04-14 12:21 | disposition home or self-care (01) ==
LOC: HO.HMGCX 12:20
PROVIDERS: PCP Internal Medicine; Visit Provider Internal Medicine
DX: T84.84XA Pain due to internal orthopedic prosthetic devices, implants and grafts, initial encounter (principal); Z96.652 Presence of left artificial knee joint
CPT/HCPCS: 73564

== ENCOUNTER 2022-07-17 11:00 | Outpatient (RCR) | payer MEDICARE, MEDICAID, SELFPAY | END 2022-08-16 07:50 | disposition home or self-care (01) | LOC: HO.PTCHIC 11:00 | PROVIDERS: PCP Internal Medicine; Visit Provider Orthopaedic Surgery | DX: Z96.652 Presence of left artificial knee joint (principal) | CPT/HCPCS: 97110; 97150; 97162; 97530 ==

== ENCOUNTER 2022-08-21 12:00 | Outpatient (REF) | payer MEDICARE, MEDICAID, SELFPAY ==
--- NOTE | ~2022-08-21 | XR_ITS ---
EXAMINATION: XR ANKLE, LEFT CLINICAL INFORMATION: Pain. COMPARISON: Radiographs dated 10/15/2018. TECHNIQUE: AP, lateral, and mortise views of the left ankle. FINDINGS: The bones and soft tissues are normal. No fracture. Alignment is anatomic. Joint spaces are maintained. No joint effusion. XR/XR ankle LT min 3V IMPRESSION: Normal left ankle.
--- NOTE | ~2022-08-21 | XR_ITS ---
EXAMINATION: XR KNEE, LEFT XR KNEE AP STANDING CLINICAL INFORMATION: Pain. COMPARISON: Prior radiographs, most recently 04/14/2022. TECHNIQUE: Lateral and axial views of the left knee were obtained. AP bilateral standing view of the knees was obtained. FINDINGS: Prosthetic components of the left total knee arthroplasty are appropriately aligned without periprosthetic fracture or abnormal lucency. No component migration. No joint effusion. The lateral joint space compartment of the right knee is well-maintained. There is mild asymmetric narrowing of the medial joint space compartment. There is mild peripheral osteophyte formation of the right lateral and medial joint space compartments. No significant varus or valgus configuration is noted bilaterally. XR/XR knee standing BI IMPRESSION: 1. Appropriate alignment of the left total knee arthroplasty without evidence of complications. 2. There is mild osteoarthritic change of the medial joint space compartment of the right knee, and very mild osteoarthritic change is seen of the lateral joint space compartment.
--- NOTE | ~2022-08-21 | XR_ITS ---
EXAMINATION: XR KNEE, LEFT XR KNEE AP STANDING CLINICAL INFORMATION: Pain. COMPARISON: Prior radiographs, most recently 04/14/2022. TECHNIQUE: Lateral and axial views of the left knee were obtained. AP bilateral standing view of the knees was obtained. FINDINGS: Prosthetic components of the left total knee arthroplasty are appropriately aligned without periprosthetic fracture or abnormal lucency. No component migration. No joint effusion. The lateral joint space compartment of the right knee is well-maintained. There is mild asymmetric narrowing of the medial joint space compartment. There is mild peripheral osteophyte formation of the right lateral and medial joint space compartments. No significant varus or valgus configuration is noted bilaterally. XR/XR knee LT 2V IMPRESSION: 1. Appropriate alignment of the left total knee arthroplasty without evidence of complications. 2. There is mild osteoarthritic change of the medial joint space compartment of the right knee, and very mild osteoarthritic change is seen of the lateral joint space compartment.
--- NOTE | ~2022-08-21 | XR_ITS ---
EXAMINATION: XR PELVIS CLINICAL INFORMATION: Hip pain. COMPARISON: None available. TECHNIQUE: AP view of the pelvis. FINDINGS: There is mild bony demineralization. The bilateral acetabular joint spaces are well-maintained. There is mild subchondral sclerosis of the bilateral acetabular roofs. The femoral heads are smooth. The sacroiliac joints are symmetric and well-maintained. There is mild osteitis pubis. No acute fracture or dislocation is seen. Pelvic phleboliths are noted. No foreign body is seen. XR/XR pelvis 1-2V IMPRESSION: There is very mild osteoarthritic change of the bilateral hips. No fracture or dislocation is seen.
== END 2022-08-21 12:01 | disposition home or self-care (01) ==
LOC: HO.HOSX 12:00
PROVIDERS: PCP Internal Medicine; Visit Provider Orthopaedic Surgery
DX: R26.9 Unspecified abnormalities of gait and mobility (principal); Z96.652 Presence of left artificial knee joint; M25.572 Pain in left ankle and joints of left foot; M25.552 Pain in left hip
CPT/HCPCS: 72170; 73560; 73565; 73610; 99212

== ENCOUNTER → 2022-09-22 10:51 | Outpatient (BNVA) | payer MEDICARE, MEDICAID, SELFPAY | PROVIDERS: PCP Internal Medicine; Visit Provider Orthopaedic Surgery ==

== ENCOUNTER 2022-12-28 13:02 | Emergency (ER) | payer MEDICARE, MEDICAID, SELFPAY | END 2022-12-28 13:43 | disposition left against medical advice (07) | PROVIDERS: Emergency Provider Emergency Medicine; PCP Internal Medicine | DX: K62.5 Hemorrhage of anus and rectum (principal) ==

== ENCOUNTER 2023-01-01 10:57 | Outpatient (AMB) | payer MEDICARE, MEDICAID, SELFPAY ==
[2023-01-01 11:27] VITALS: BP 128/82; PULSE 79; O2SAT 96; BMI 33.8
--- NOTE | 2023-01-01 11:27 | A.OFFPC_ITS ---
Vital Signs 01/01/23 11:27 Height 5 ft 2 in Weight 185 lb BMI 33.8 BP 128/82 Blood Pressure Location Lt brachial Position Sitting Pulse 79 Pulse Source Pulse Oximeter Pulse Oximetry (%) 96 Intake Visit Reasons: rectal bleed, ? hemorroid Intake Note: patient is here today for rectal bleed, hemorroid Allergies Penicillins [PENICILLINS] Allergy (Severe, Verified 01/01/23 11:59) RASH- 1970's very bad rash vancomycin Allergy (Verified 01/01/23 11:59) Itching Medication List - Last Reconciled 01/01/23 by Jeniffer Colunga MD No Known Home Meds Tobacco use date assessed: 01/01/23 Fall risk assessment: No Falls in past year Last assessed Fall Risk: 01/01/23 Dental Screening Dental Screen Date: 01/01/23 Did you have a dental visit in the last 12 months?: No Did you have a dental problem in the last 6 months where you did not have access to dental care?: No Was dental information given to patient?: Patient has dentist HPI rectal bleed, ? hemorroid HPI Details 62-year-old lady here today complaining of sudden onset of bright red blood per rectum 2 days ago while she was urinating. Has been having sensation of incomplete emptying of stool after defecation. She had screening colonoscopy done a year ago which showed presence of internal and external hemorrhoids. No pain on defecation reported [facility] Medical History Bleeding hemorrhoid Acute anxiety Knee pain, right Unstable gait Vaccination refused by patient Chronic low back pain Impaired fasting glucose Dyslipidemia Elevated blood pressure reading with diagnosis of hypertension Refused influenza vaccine Not ready to quit smoking Nonscarring hair loss Asymptomatic age-related postmenopausal state Tubular adenoma of colon Internal bleeding hemorrhoids Encounter for general adult medical examination with abnormal findings Surgical History Hx of total knee arthroplasty Hx of tubal ligation Hx of colonoscopy Family History Father Myocardial infarction CVD (cardiovascular disease) Mother Depression Sister No problems noted. Maternal Grandmother No problems noted. Maternal Grandfather No problems noted. Paternal Grandfather No problems noted. Paternal Grandmother No problems noted. Son No problems noted. Son No problems noted. Other Substance use disorder Social History Household Members: Spouse Housing: House Are you a primary direct care specialist to a significant other at home: No Do you presently have visiting nurse or other home services: No Alcohol intake: current Alcohol intake frequency: does not drink Alcohol type: beer and wine Patient Tobacco Use Status: Current everyday Tobacco user Tobacco use type: Cigarette Cigarette Packs Per Day: 0.5 Cigarettes Per Day: 10.0 Years Smoked: 40 e-Cigarette/Vaping Use: Never Used Second Hand Smoke Exposure: Yes service: No Current occupational status: disabled Current occupation: right handed Cognitive needs: No Hearing needs: No Vision needs: Yes Questionnaire Thrive Questionnaire Date Thrive assessed: 04/14/22 AUDIT C Alcohol Use Questionnaire (AUDIT-C) 1. How often do you have a drink containing alcohol?: Monthly or less 2. How many drinks containing alcohol do you have on a typical day when you are drinking?: 1 or 2 Total Score: 1 SUSY-7 AMB Questionnaire SUSY-7 Date SUSY - 7 assessed: 04/14/22 Source: Developed by Drs. Steve Ernst, Latesha Horton, Lanre Vegas and colleagues, with an educational lesley from [facility]. Review of Systems Const Denies fatigue, Denies headache(s), Denies lethargy and Denies malaise ENT Reports no additional complaints, Denies dizziness and Denies headache(s) Card Denies diaphoresis, Denies rapid heart rate, Denies irregular heart rhythm and Denies lightheadedness Resp Reports no additional complaints GI Reports no additional complaints Neuro Denies dizziness and Denies headache(s) Endo Denies fatigue Physical exam (Primary Care) Vital Signs: Last Vital Signs Pulse 79 01/01/23 11:27 BP 128/82 01/01/23 11:27 Pulse Ox 96 01/01/23 11:27 BMI result Body Mass Index 33.8 Tobacco/Smoking Status: Tobacco use Status Tobacco use date assessed 01/01/23 01/01/23 11:31 Patient Tobacco Use Status Current everyday Tobacco 01/01/23 11:31 Tobacco use type Cigarette 01/01/23 11:31 e-Cigarette/Vaping Use Never Used 01/01/23 11:31 Thrive Assessment: Date of Thrive Assessment Date Thrive assessed 04/14/22 01/01/23 11:31 Const Other: Alert oriented x3, no acute distress noted ambulatory normal gait HENMT Head: Yes normocephalic Face and sinus: Yes face symmetric Mouth: Normal oral and palatal mucosa present, oropharynx normal and moist mucous membranes abnormal Eyes Other: Pain palpebral conjunctiva, anicteric General: appearance normal, both eyes and all related structures Conjunctivae: conjunctivae normal Pupils: Equal, round and reactive pupils present EOM: EOMs intact bilaterally Neck Neck: Yes full ROM, Yes no lymphadenopathy and Yes supple Resp Auscultation: clear to auscultation bilaterally Cardio Other: S1-S2 present regular rate and GI Palpation (GI): Soft to palpation, nontender and no guarding Rectal Exam - Female: normal sphincter tone, External hemorrhoid(s) present (Nonthrombosed, no active bleeding) and No tenderness Neuro Cranial nerves: Yes Equal, round and reactive pupils present Assessment and Plan Assessment & Plan (1) Bleeding hemorrhoid: Code(s): K64.9 - Unspecified hemorrhoids Plan: Declined ordered to get blood count, referred to Dr. Dennison for further evaluation management, patient would like to see if she can get hemorrhoids smith rgically excised. In the meantime advised to eat oatmeal or a dietary supplement to help prevent constipation Orders: Referrals General Surgery Referral K64.9 - Unspecified hemorrhoids Coding Level of Care Code Est Pt Level 3 (83006) Diagnoses Bleeding hemorrhoid K64.9
== END 2023-01-01 13:39 | disposition home or self-care (01) ==
PROVIDERS: PCP Internal Medicine; Visit Provider Internal Medicine
DX: K64.9 Unspecified hemorrhoids (principal)
CPT/HCPCS: 99213

== ENCOUNTER 2023-01-17 13:49 | Outpatient (AMB) | payer MEDICARE, MEDICAID, SELFPAY ==
--- NOTE | 2023-01-17 13:51 | MHC.OFFVIS ---
Intake Vital Signs 01/17/23 13:57 Height 5 ft 2 in Weight 184 lb BMI 33.7 BP 143/75 H Blood Pressure Location Rt brachial Position Sitting Pulse 77 Intake Visit Reasons: Hemorrhoids Intake Note: This patient was referred by Dr. Colunga for an assessment for hemorrhoids. Patient c/o; reports was experiencing rectal bleeding, reports discomfort, reports burning sensation, denies constipation, reports straining with bowel movements, reports taking Metamucil. Form Maker Plaster Required: No Accompanied by: Self / Same As Patient Allergies Penicillins [PENICILLINS] Allergy (Severe, Verified 01/17/23 14:01) RASH- very bad rash vancomycin Allergy (Verified 01/17/23 14:01) Itching Medication List - Last Reconciled 01/17/23 by Jonathan Dennison MD No Known Home Meds HPI Hemorrhoids HPI Details 62-year-old female referred for hemorrhoids. She says that she has known she has had hemorrhoids for years. She says that she never had real problems with this. However, about 3 weeks ago, she noticed bright blood in the bathroom when she had a bowel movement. She says that this happened only that time. She denies any pain during that episode She never had occurrence of her bleeding since that time She does state that she does not think she is constipated but had recently been straining more prior to that episode. She says that this has improved after she had been taking Metamucil. She had a colonoscopy last year showing diverticulosis and internal external hemorrhoids [facility] Medical History Bleeding hemorrhoid Acute anxiety Knee pain, right Unstable gait Vaccination refused by patient Chronic low back pain Impaired fasting glucose Dyslipidemia Elevated blood pressure reading with diagnosis of hypertension Refused influenza vaccine Not ready to quit smoking Nonscarring hair loss Asymptomatic age-related postmenopausal state Tubular adenoma of colon Internal bleeding hemorrhoids Encounter for general adult medical examination with abnormal findings Surgical History Hx of total knee arthroplasty Hx of tubal ligation Hx of colonoscopy Family History Father Myocardial infarction CVD (cardiovascular disease) Mother Depression Sister No problems noted. Maternal Grandmother No problems noted. Maternal Grandfather No problems noted. Paternal Grandfather No problems noted. Paternal Grandmother No problems noted. Son No problems noted. Son No problems noted. Other Substance use disorder Social History Household Members: Spouse Housing: House Are you a primary home visit field care manager to a significant other at home: No Do you presently have visiting nurse or other home services: No Alcohol intake: current Alcohol intake frequency: does not drink Alcohol type: beer and wine Patient Tobacco Use Status: Current everyday Tobacco user Tobacco use type: Cigarette Cigarette Packs Per Day: 0.5 Cigarettes Per Day: 10.0 Years Smoked: 40 e-Cigarette/Vaping Use: Never Used Second Hand Smoke Exposure: Yes service: No Current occupational status: disabled Current occupation: right handed Cognitive needs: No Hearing needs: No Vision needs: Yes Review of Systems Const Denies chills and Denies fever(s) Card Denies chest pain, Denies dyspnea and Denies dyspnea on exertion Resp Denies cough, Denies dyspnea and Denies dyspnea on exertion GI Reports hematochezia and Denies change in bowel habits Denies hematuria Musc Denies back pain and Denies limited range of motion Neuro Denies focal weakness and Denies convulsions Psych Denies depression and Denies mood swings Physical Exam Vital Signs: Last Vital Signs Pulse 77 01/17/23 13:57 BP 143/75 H 01/17/23 13:57 BMI result Body Mass Index 33.7 Const General: comfortable and no acute distress Orientation/consciousness: patient oriented x3 Neck Neck: Yes no lymphadenopathy Resp Auscultation: clear to auscultation bilaterally Cardio Rhythm: regular rhythm GI Other: Rectal exam shows external hemorrhoids on the right anterior Palpation (GI): Soft to palpation, nontender and no guarding Neuro General: patient oriented x3 Office Procedures Anoscopy She was in nguyen-knife position. The anoscope was gently inserted. A full examination of the anal canal was done. She did have this internal external hemorrhoidal column on the right anterior which moderate was moderate size. There were other smaller hemorrhoidal columns on the left and the right side. There was no bleeding there was no inflammation. There was no induration or any significant tenderness at this time. [id number] Assessment & Plan Assessment & Plan (1) Bleeding hemorrhoid: Code(s): K64.9 - Unspecified hemorrhoids Plan: She has internal and external hemorrhoids, and had episode of bright blood per rectum 3 weeks ago. She says that this happened only that day and she has had no episodes since then. I did explain to her the option of hemorrhoidectomy. However, she says that she does not feel that she wants this done at this time as she only had 1 episode of bleeding and has had no other problems with her hemorrhoids before I did explain to her that if she wants to be re-evaluated down the line, she is welcome to come back to the office. I had advised her to continue taking Metamucil. Coding Level of Care Code New Pt Level 3 (57057) Diagnoses Bleeding hemorrhoid K64.9 CPT Codes Details - CPT: 60815-[id number] ([id number])
[2023-01-17 13:57] VITALS: BP 143/75; PULSE 77; BMI 33.7
== END 2023-01-17 14:33 | disposition home or self-care (01) ==
PROVIDERS: PCP Internal Medicine; Referring Provider Internal Medicine; Visit Provider Surgery
DX: K64.9 Unspecified hemorrhoids (principal)
CPT/HCPCS: 46600; 99203

== ENCOUNTER → 2023-01-17 13:49 | Outpatient (BNVA) | payer MEDICARE, MEDICAID, SELFPAY | PROVIDERS: PCP Internal Medicine; Referring Provider Internal Medicine; Visit Provider Surgery | DX: K64.8 Other hemorrhoids (principal) | CPT/HCPCS: 46600 ==

== ENCOUNTER 2023-03-19 09:55 | Outpatient (AMB) | payer MEDICARE, MEDICAID, SELFPAY ==
--- NOTE | 2023-03-19 11:01 | MHC.OFFWIV ---
Intake Vital Signs 03/19/23 11:02 Height 5 ft 2 in Intake Visit Reasons: EP UTI [id number] Intake Note: pt is here today for UTI started 2 weeks ago Patient Tobacco Use Status: Current everyday Tobacco user Allergies Penicillins [PENICILLINS] Allergy (Severe, Verified 03/19/23 11:17) RASH- 1970's very bad rash vancomycin Allergy (Verified 03/19/23 11:17) Itching Do you need a note to return to daycare/school/sports/work: No HPI HPI Comments History of Present Illness Details This is a 62-year-old female without significant medical history presenting to the clinic for evaluation of urinary frequency, urgency, dysuria which have been going on for the past three days worsening.? Patient reports she thinks she has urinary tract infection, has had 1 in the past.? She denies fevers, chills, flank pain, nausea, vomiting, abdominal pain, chest pain, shortness of breath.? Physical exam benign Likely UTI versus cystitis unlikely pyelonephritis, obstructing uropathy, systemic illness.?I do not suspect kidney stones. Previous culture grew E coli susceptible to ceftriaxone, ampicillin, gentamicin, levofloxacin and Macrobid Plan at this time? patient be discharged with antibiotics selected Macrobid as she does have a penicillin allergy.? Educated patient on diagnosis and treatment plan, answered all question, patient verbalizes understanding.? At this time patient will be discharged home, advised to return with new or worsening symptoms.? Educated on worrisome signs and symptoms and when to return.? At this time I feel comfortable discharge home. [facility] Medical History Bleeding hemorrhoid Acute anxiety Knee pain, right Unstable gait Vaccination refused by patient Chronic low back pain Impaired fasting glucose Dyslipidemia Elevated blood pressure reading with diagnosis of hypertension Refused influenza vaccine Not ready to quit smoking Nonscarring hair loss Asymptomatic age-related postmenopausal state Tubular adenoma of colon Internal bleeding hemorrhoids Encounter for general adult medical examination with abnormal findings Surgical History Hx of total knee arthroplasty Hx of tubal ligation Hx of colonoscopy Family History Father Myocardial infarction CVD (cardiovascular disease) Mother Depression Sister No problems noted. Maternal Grandmother No problems noted. Maternal Grandfather No problems noted. Paternal Grandfather No problems noted. Paternal Grandmother No problems noted. Son No problems noted. Son No problems noted. Other Substance use disorder Social History Household Members: Spouse Housing: House Are you a primary care management associate to a significant other at home: No Do you presently have visiting nurse or other home services: No Alcohol intake: current Alcohol intake frequency: does not drink Alcohol type: beer and wine Patient Tobacco Use Status: Current everyday Tobacco user Tobacco use type: Cigarette Cigarette Packs Per Day: 0.5 Cigarettes Per Day: 10.0 Years Smoked: 40 e-Cigarette/Vaping Use: Never Used Second Hand Smoke Exposure: Yes service: No Current occupational status: disabled Current occupation: right handed Cognitive needs: No Hearing needs: No Vision needs: Yes Review of Systems Const Details: Constitutional : No Weight loss, No Fever, No Chills, No Fatigue, No Malaise ENT/Mouth : No sore throat, No Rhinorrhea Eyes: No Eye Pain, No Swelling, No Redness Cardiovascular : No Chest Pain, No SOB, No Dyspnea on Exertion, No Orthopnea, No Edema, No Palpitations Respiratory : No Cough, No Sputum, No Wheezing Gastrointestinal : No Nausea, No Vomiting, No Diarrhea, No Constipation, No abdominal Pain, No Hematochezia, No Melena Genitourinary : + Dysuria, + Urinary Frequency, No Hematuria, Musculoskeletal : No joint pain, No Myalgias, No Joint Swelling Skin : No Skin Lesions, No rash Neuro : No Weakness, No Numbness, No Dizziness, No Headache Psych : No Anxiety/Panic, No Depression All other systems reviewed and are negative All systems reviewed & are unremarkable except as noted in HPI and below Physical Exam Vital Signs: vss Appearance: Alert.? Oriented X3.? No acute distress.? Head: Normocephalic, atraumatic, no step-offs or deformities Eyes: Pupils equal, round and reactive to light.? ENT: Pharynx normal.? Neck: Normal inspection.? Neck supple.? CVS: Normal heart rate and rhythm.? Pulses normal.? Respiratory: No respiratory distress.? Breath sounds normal.? Abdomen: Soft and nontender.? Skin: Skin warm and dry.? Normal skin color.? Normal skin turgor.? Extremities: No lower extremity edema.? No calf ttp. 5/5 strength to bilateral upper and lower extremities Neuro: Oriented X 3.? No motor deficit.? No sensory deficit. CN 2-12 intact Results AMB Urinalysis, Automated UA Leukoctes 0 Carlos/uL Last Edit by Skyler Nieves CMA on 03/19/23 11:19 UA Nitrite Negative Last Edit by Skyler Nieves, LOU on 03/19/23 11:19 UA Urobilinogen 0.2 mg/dL Last Edit by Skyler Nieves, LOU on 03/19/23 11:19 UA Protein 15 mg/dL Last Edit by Skyler Nieves, LOU on 03/19/23 11:19 UA pH 6.0 Last Edit by kSyler Nieves, LOU on 03/19/23 11:19 UA Blood 0 Cecil/uL Last Edit by Skyler Nieves, LOU on 03/19/23 11:19 UA Specific [place] 1.030 Last Edit by Skyler Nieves CMA on 03/19/23 11:19 UA Ketone Positive Last Edit by Skyler Nieves CMA on 03/19/23 11:19 UA Bilirubin 1 mg/dL Last Edit by Skyler Nieves CMA on 03/19/23 11:19 UA Glucose 0 mg/dL Last Edit by Skyler Nieves CMA on 03/19/23 11:19 Assessment & Plan Assessment & Plan (1) UTI symptoms: Code(s): R39.9 - Unspecified symptoms and signs involving the genitourinary system Plan Take your medications as prescribed. If you were prescribed antibiotics today, it is important that you take your medication to their entirety, do not skip any doses, do not finish them early. Follow-up with your primary care provider this week. Return to the emergency department with new or worsening symptoms. Such as fevers, chills, chest pain, shortness of breath, nausea, vomiting, dizziness, headache, vision changes, lethargy In case of emergency call 911 Orders: Orders AMB Urinalysis Automated Today Z13.9 - Encounter for screening, unspecified Medications: New nitrofurantoin monohyd/m-cryst 100 mg (Macrobid) must administer with a meal/food 100 mg PO BID 5 days 10 caps 0RF phenazopyridine (Pyridium) 200 mg PO TID 6 doses 6 tabs 0RF Coding Level of Care Code Est Pt Level 3 (52299) Diagnoses UTI symptoms R39.9
== END 2023-03-19 11:47 | disposition home or self-care (01) ==
PROVIDERS: PCP Internal Medicine; Visit Provider Physician Assistant
DX: R39.9 Unspecified symptoms and signs involving the genitourinary system (principal)
CPT/HCPCS: 81003; 99213

== ENCOUNTER 2023-03-27 10:53 | Outpatient (AMB) | payer MEDICARE, MEDICAID, SELFPAY ==
[2023-03-27 11:26] VITALS: BP 146/88; PULSE 90; O2SAT 96; BMI 33.9
--- NOTE | 2023-03-27 11:26 | MHC.PC.OV ---
Vital Signs 03/27/23 11:26 Height 5 ft 2 in Weight 185 lb 4 oz BMI 33.9 BP 146/88 H Blood Pressure Location Lt brachial Position Sitting Pulse 90 Pulse Source Pulse Oximeter Pulse Oximetry (%) 96 Oxygen Delivery Method Room Air Intake Visit Reasons: continued UTI symptoms Intake Note: Pt is here for continued UTI symptoms pt was treated in the walk-in but she says her symptoms never went away she still has burning urgency and frequency and her rectal area is burning at the same time Allergies Penicillins [PENICILLINS] Allergy (Severe, Verified 04/25/23 23:08) RASH- 1970 very bad rash vancomycin Allergy (Verified 04/25/23 23:08) Itching Medication List - Last Reconciled 03/27/23 by Jeniffer Colunga MD No Known Home Meds Tobacco use date assessed: 03/27/23 Fall risk assessment: No Falls in past year Last assessed Fall Risk: 03/27/23 HPI continued UTI symptoms HPI Details 62-year-old lady here today for follow-up. She was recently seen at the walk-in clinic and treated for urinary tract infection 7 days ago with nitrofurantoin and phenazopyridine. Patient states that it initially helped but now is starting to have urinary frequency and urgency again, denies any accompanying abdominal pain, no fever chills, no nausea vomiting reported. She has also been complaining of itching and burning in her vaginal area spreading to her rectal area the last 2 days now. Denies any abnormal vaginal discharge ON LICENSE OF [facility] Medical History (Updated 04/19/23 @ 12:21 by Jeniffer Colunga MD) Osteopenia of multiple sites Mixed hyperlipidemia Acute anxiety Vaccination refused by patient Chronic low back pain Impaired fasting glucose Dyslipidemia Elevated blood pressure reading with diagnosis of hypertension Refused influenza vaccine Not ready to quit smoking Nonscarring hair loss Asymptomatic age-related postmenopausal state Tubular adenoma of colon Internal bleeding hemorrhoids Encounter for general adult medical examination with abnormal findings Surgical History (Updated 04/19/23 @ 11:35 by Jeniffer Colunga MD) Status post total left knee replacement Hx of total knee arthroplasty Hx of tubal ligation Hx of colonoscopy Family History Father Myocardial infarction CVD (cardiovascular disease) Mother Depression Sister No problems noted. Maternal Grandmother No problems noted. Maternal Grandfather No problems noted. Paternal Grandfather No problems noted. Paternal Grandmother No problems noted. Son No problems noted. Son No problems noted. Other Substance use disorder Social History Household Members: Spouse Housing: House Are you a primary home health caregiver to a significant other at home: No Do you presently have visiting nurse or other home services: No Alcohol intake: current Alcohol intake frequency: does not drink Alcohol type: beer and wine Patient Tobacco Use Status: Current everyday Tobacco user Tobacco use type: Cigarette Cigarette Packs Per Day: 0.5 Cigarettes Per Day: 10.0 Years Smoked: 40 e-Cigarette/Vaping Use: Never Used Second Hand Smoke Exposure: Yes service: No Current occupational status: disabled Current occupation: right handed Cognitive needs: No Hearing needs: No Vision needs: Yes Questionnaire Thrive Questionnaire Date Thrive assessed: 04/14/22 SUSY-7 AMB Questionnaire SUSY-7 Date SUSY - 7 assessed: 04/14/22 Source: Developed by Drs. Steve Ernst, Latesha Horton, Lanre Vegas and colleagues, with an educational lesley from [employer]. Review of Systems Const Reports as per HPI and Reports no additional complaints Physical exam (Primary Care) Vital Signs: Last Vital Signs Pulse 90 03/27/23 11:26 BP 146/88 H 03/27/23 11:26 Pulse Ox 96 03/27/23 11:26 Oxygen Delivery Method Room Air 03/27/23 11:26 BMI result Body Mass Index 33.9 Tobacco/Smoking Status: Tobacco use Status Tobacco use date assessed 03/27/23 03/27/23 11:32 Patient Tobacco Use Status Current everyday Tobacco 03/27/23 11:26 Tobacco use type Cigarette 03/27/23 11:26 e-Cigarette/Vaping Use Never Used 03/27/23 11:26 Are you ready to quit: No Thrive Assessment: Date of Thrive Assessment Date Thrive assessed 04/14/22 03/27/23 11:26 Const Other: Alert oriented x3, no acute distress noted ambulatory normal gait HENMT Face and sinus: Yes face symmetric Mouth: oropharynx normal and moist mucous membranes abnormal Neck Neck: Yes full ROM, Yes no lymphadenopathy and Yes supple Resp Auscultation: clear to auscultation bilaterally Cardio Other: S1-S2 present regular rate and GI Palpation (GI): Soft to palpation, nontender and no guarding Rectal Exam - Female: normal sphincter tone, External hemorrhoid(s) present (Nonthrombosed, no active bleeding) and No tenderness External Female Exam: erythema (On vulvar area, no other lesions noted) Skin Other: Dry erythematous patch on perineal area Results AMB Urinalysis, Automated UA Leukoctes 0 Carlos/uL Last Edit by Bibiana Gates CMA on 03/27/23 11:48 UA Nitrite Negative Last Edit by Bibiana Gates CMA on 03/27/23 11:48 UA Urobilinogen 0.2 mg/dL Last Edit by Bibiana Gates CMA on 03/27/23 11:48 UA Protein 0 mg/dL Last Edit by Bibiana Gates CMA on 03/27/23 11:48 UA pH 6.0 Last Edit by Bibiana Gates, LOU on 03/27/23 11:48 UA Blood 0 Cecil/uL Last Edit by Bibiana Gates, LOU on 03/27/23 11:48 UA Specific [place] 1.030 Last Edit by Bibiana Gates CMA on 03/27/23 11:48 UA Ketone Negative Last Edit by Bibiana Gates CMA on 03/27/23 11:48 UA Bilirubin 0 mg/dL Last Edit by Bibiana Gates, LOU on 03/27/23 11:48 UA Glucose 0 mg/dL Last Edit by Bibiana Gates CMA on 03/27/23 11:48 Results Reviewed Results Reviewed: Laboratory Last Values Urine pH (Auto) 6.0 03/27/23 11:45 Specific [place] (Auto) 1.030 03/27/23 11:45 Urine Protein (Auto) 0 mg/dL 03/27/23 11:45 Glucose (UA)(Auto) 0 mg/dL 03/27/23 11:45 Urine Ketones (Auto) Negative 03/27/23 11:45 Urine Blood (Auto) 0 Cecil/uL 03/27/23 11:45 Urine Nitrite (Auto) Negative 03/27/23 11:45 Urine Bilirubin (Auto) 0 mg/dL 03/27/23 11:45 Urine Urobilinogen (Auto) 0.2 mg/dL 03/27/23 11:45 Leukocyte Esterase (Auto) 0 Carlos/uL 03/27/23 11:45 Assessment and Plan Assessment & Plan (1) Vaginal irritation: Code(s): N89.8 - Other specified noninflammatory disorders of vagina Plan Prescription sent for clobetasol cream 0.05% to apply sparingly to affected areas once a day for no more than 10 days at a time, advised to follow-up with her OBGYN for her cervical cancer screening, overdue, missed appointment 11/10/2022. Patient informed that there was no urinary tract infection seen on recent urinalysis done Orders: Orders AMB Urinalysis Automated 03/27/23 Z13.9 - Encounter for screening, unspecified Medications: New clobetasol 0.05% Apply to perineal and rectal area once a day for 10 days 1 appl topical BEDTIME 30 grams 0RF 10 days Coding Level of Care Code Est Pt Level 3 (31927) Diagnoses Vaginal irritation N89.8
== END 2023-03-27 12:36 | disposition home or self-care (01) ==
LOC: HO.HMGC 10:53
PROVIDERS: PCP Internal Medicine; Visit Provider Internal Medicine
DX: N89.8 Other specified noninflammatory disorders of vagina (principal)
CPT/HCPCS: 81003; 99213

== ENCOUNTER 2023-04-19 11:02 | Outpatient (AMB) | payer MEDICARE, MEDICAID, SELFPAY ==
--- NOTE | 2023-04-19 11:16 | MHC.PC.OV ---
Vital Signs 04/19/23 11:17 Height 5 ft 2 in Weight 184 lb 2 oz BMI 33.7 BP 124/80 Blood Pressure Location Rt brachial Position Sitting Pulse 73 Pulse Source Pulse Oximeter Pulse Oximetry (%) 96 Oxygen Delivery Method Room Air Intake Visit Reasons: PE Annual Intake Note: Pt is here for her Annual PE Allergies Penicillins [PENICILLINS] Allergy (Severe, Verified 04/25/23 23:08) RASH- 1970's very bad rash vancomycin Allergy (Verified 04/25/23 23:08) Itching Medication List - Last Reconciled 04/30/23 by Jeniffer Colunga MD lorazepam mg PO Tobacco use date assessed: 04/19/23 Fall risk assessment: No Falls in past year Last assessed Fall Risk: 04/19/23 Dental Screening Dental Screen Date: 04/19/23 Did you have a dental visit in the last 12 months?: Yes Did you have a dental problem in the last 6 months where you did not have access to dental care?: No Was dental information given to patient?: Patient has dentist HPI PE Annual HPI Details 62-year-old lady with history of mixed hyperlipidemia, prediabetes, osteopenia and multiple sites, here today for her physical exam. She does not want to get any routine vaccinations. Has history of tubular adenoma of colon removed by Dr. Nwe in 2017, overdue now for a repeat colonoscopy. Her last Pap smear was done by [facility] in 2017, and last mammogram was done in 2021. Has been having frequent anxiety attacks, would like a prescription for lorazepam to take as needed [facility] Medical History (Updated 04/30/23 @ 11:46 by Jeniffer Colunga MD) Lumbar spondylosis Osteopenia of multiple sites Mixed hyperlipidemia Acute anxiety Vaccination refused by patient Chronic low back pain Impaired fasting glucose Dyslipidemia Refused influenza vaccine Not ready to quit smoking Asymptomatic age-related postmenopausal state Tubular adenoma of colon Internal bleeding hemorrhoids Encounter for general adult medical examination with abnormal findings Surgical History Status post total left knee replacement Hx of total knee arthroplasty Hx of tubal ligation Hx of colonoscopy Family History Father Myocardial infarction CVD (cardiovascular disease) Mother Depression Sister No problems noted. Maternal Grandmother No problems noted. Maternal Grandfather No problems noted. Paternal Grandfather No problems noted. Paternal Grandmother No problems noted. Son No problems noted. Son No problems noted. Other Substance use disorder Social History Household Members: Spouse Housing: House Are you a primary career resource specialist to a significant other at home: No Do you presently have visiting nurse or other home services: No Alcohol intake: current Alcohol intake frequency: does not drink Alcohol type: beer and wine Patient Tobacco Use Status: Current everyday Tobacco user Tobacco use type: Cigarette Cigarette Packs Per Day: 0.5 Cigarettes Per Day: 10.0 Years Smoked: 40 e-Cigarette/Vaping Use: Never Used Second Hand Smoke Exposure: Yes service: No Current occupational status: disabled Current occupation: right handed Cognitive needs: No Hearing needs: No Vision needs: Yes Questionnaire PHQ-9 Over the last 2 weeks, how often have you been bothered by any of the following problems? 1. Little interest or pleasure in doing things: not at all 2. Feeling down, depressed, or hopeless: not at all 3. Trouble falling or staying asleep, or sleeping too much: not at all 4. Feeling tired or having little energy: several days 5. Poor appetite or overeating: not at all 6. Feeling bad about yourself - or that you are a failure or have let yourself or your family down: not at all 7. Trouble concentrating on things, such as reading the newspaper or watching television: not at all 8. Moving or speaking so slowly that other people could have noticed. Or the opposite - being so fidgety or restless that you have been moving around a lot more than usual: not at all 9. Thoughts that you would be better off or of hurting yourself in some way: not at all Total score: 1 Depression Screening Interpretation: Negative Depression Screening Done: Yes 75469 - PHQ-9 Billing: Yes Source: Developed by Drs. Steve Enrst, Latesha Horton, Lanre Vegas and colleagues, with an educational lesley from [employer]. Thrive Questionnaire Date Thrive assessed: 04/19/23 I am a: Patient What is your living situation today?: I have a steady place to live Within the past 12 months, did the food you bought not last and you didn't have the money to get more?: Never true Within the past 12 months, did you worry whether your food would run out before you got money to buy more?: Never true Do you have trouble paying for medicines?: No Do you have trouble getting transportation to medical appointments?: No Do you have trouble paying your heating and electricity bill?: No Do you have trouble taking care of your child, family member or friend?: No Do you have trouble with day-to-day activities such as bathing, preparing meals, shopping, managing finances, etc.?: No Are you currently unemployed and looking for a job?: No Are you interested in more education?: No AUDIT C Alcohol Use Questionnaire (AUDIT-C) 1. How often do you have a drink containing alcohol?: 2-4 times a month 2. How many drinks containing alcohol do you have on a typical day when you are drinking?: 3 or 4 3. How often do you have six or more drinks on one occasion?: Never Total Score: 3 SUSY-7 AMB Questionnaire SUSY-7 Date SUSY - 7 assessed: 04/19/23 Feeling nervous, anxious, or on edge: 1 = Several days Not being able to stop or control worryin = Several days Worrying too much about different things: 1 = Several days Trouble relaxin = Several days Being so restless that it is hard to sit still: 0 = Not at all Becoming easily annoyed or irritable: 0 = Not at all Feeling afraid as if something awful might happen: 0 = Not at all Total SUSY-7 score (0-4 normal; 5-9 mild; 10-14 moderate; 15-21 severe): 4 Source: Developed by Drs. Steve Ernst, Latesha Horton, Lanre Vegas and colleagues, with an educational lesley from [employer]. SUSY-7 Assessment Billing SUSY-7 Assessment Tool: SUSY-7 Assessment 88716 Review of Systems Const Denies fatigue, Denies headache(s), Denies lethargy and Denies malaise Eyes Reports no additional complaints ENT Reports no additional complaints, Denies dizziness and Denies headache(s) Card Denies chest pain, Denies rapid heart rate, Denies irregular heart rhythm and Denies lightheadedness Resp Reports no additional complaints GI Reports no additional complaints Reports no additional complaints Musc Reports no additional complaints Skin/Breast Denies breast swelling, Denies breast pain, Denies breast mass, Denies lesions and Denies rash Neuro Denies dizziness and Denies headache(s) Psych Reports as per HPI Endo Denies fatigue Sharif/Lymph Reports no additional complaints Aller/Immun Reports no additional complaints Physical exam (Primary Care) Vital Signs: Last Vital Signs Pulse 73 04/19/23 11:17 BP 124/80 04/19/23 11:17 Pulse Ox 96 04/19/23 11:17 Oxygen Delivery Method Room Air 04/19/23 11:17 BMI result Body Mass Index 33.7 Tobacco/Smoking Status: Tobacco use Status Tobacco use date assessed 04/19/23 04/19/23 11:23 Patient Tobacco Use Status Current everyday Tobacco 04/19/23 11:16 Tobacco use type Cigarette 04/19/23 11:16 e-Cigarette/Vaping Use Never Used 04/19/23 11:16 Are you ready to quit: No PHQ-9: PHQ-9 Score PHQ-9: Total score 1 04/30/23 11:44 Depression Screening Interpretation: Negative Thrive Assessment: Date of Thrive Assessment Date Thrive assessed 04/19/23 04/19/23 13:08 Const Other: Alert oriented x3, no acute distress noted ambulatory normal gait Orientation/consciousness: patient oriented x3 HENMT Face and sinus: Yes face symmetric Mouth: oropharynx normal and moist mucous membranes abnormal Eyes General: appearance normal, both eyes and all related structures Neck Neck: Yes full ROM, Yes no lymphadenopathy and Yes supple Chest Breast/axilla palpation: normal palpation of the breasts Resp Auscultation: clear to auscultation bilaterally Cardio Other: S1-S2 present regular rate and GI Palpation (GI): Soft to palpation, nontender and no guarding Other: Currently sees [facility] for her routine Pap and pelvic exam General: Yes no CVA tenderness Back/Spine/Pelvis Back: no CVA tenderness and No back tenderness Skin General skin exam: no rashes or lesions noted Neuro General: patient oriented x3, gait normal, tone normal, moves all extremities, Normal light touch and pain sensation and no focal motor deficits Extrem General: Yes normal to inspection, Yes full ROM, Yes no joint enlargement, Yes no clubbing, cyanosis or edema, Yes no pedal edema and Yes normal gait Psych Appearance: grossly normal and well kempt Mental Status: mental status grossly normal Speech and movement: Normal speech and movement present Affect: normal affect Attitude: cooperative Thought process: Normal thought process present Thought content: Normal thought content present Assessment and Plan Assessment & Plan (1) Annual visit for general adult medical examination with abnormal findings: Code(s): Z00.01 - Encounter for general adult medical examination with abnormal findings Plan: Will check appropriate labs. Recommended dental visit every 6 months and regular eye exams, at least every 2 years. Take adequate calcium in diet and vitamin-D 3 at 2000 IU per cap once a day, in addition to weight-bearing exercises to help maintain good muscle tone and weight control. Instructed to do self-breast exam, and recommended to get yearly mammogram, overdue, screening mammogram ordered, as well as a bone density scan. She sees [facility] for her routine Pap and pelvic exam, has an appointment already scheduled. Patient declined getting routine vaccination. States that she has seen Dr. New in 2021 for colonoscopy will obtain copy results (2) Mixed hyperlipidemia: Code(s): E78.2 - Mixed hyperlipidemia Plan: Fasting lipid panel ordered, stressed importance of following a low-cholesterol diet and getting regular exercise. (3) Not ready to quit smoking: Code(s): Z72.0 - Tobacco use Plan: Patient strongly advised to stop smoking, as smoking damages blood vessels, degenerative of joints and spine, damage to lungs and heart., predisposes to developing certain cancers like lung, breast, bladder, colon. Recommended to try decreasing cigarette use by 1-2 cigarettes a day. Advised to monitor what triggers are for smoking so that this can be discussed on the next office visit. We can discuss different options to quit smoking when ready. (4) Refused influenza vaccine: Code(s): Z28.21 - Immunization not carried out because of patient refusal (5) Impaired fasting glucose: Code(s): R73.01 - Impaired fasting glucose Plan: Your fasting blood sugars elevated above 100 mg/dL. Impaired glucose metabolism O2 at risk for developing diabetes mellitus type 2, as well as heart attack and stroke later on. Lifestyle changes at just weight loss, healthy eating habits, and regular exercise are important, and can prevent the progression to diabetes (6) Vaccination refused by patient: Code(s): Z28.21 - Immunization not carried out because of patient refusal (7) Osteopenia of multiple sites: Code(s): M85.89 - Other specified disorders of bone density and structure, multiple sites Plan: Repeat bone density scan ordered, advised to take over-the counter vitamin-D 3 supplements at least 2000 units once a day and take adequate calcium from dietary sources, stay active do regular weight-bearing exercise at least 3 to 4 times a week. (8) Dyslipidemia: Code(s): E78.5 - Hyperlipidemia, unspecified Plan: Fasting lipid panel ordered today, force importance of following a low-cholesterol diet and getting regular exercise. (9) Tubular adenoma of colon: Code(s): D12.6 - Benign neoplasm of colon, unspecified Plan: Patient seen by Dr. New in 2021 to get colonoscopy done, will request copy of results from Dr. New' office Orders: Orders Alanine Aminotransferase 04/23/23 E78.2 - Mixed hyperlipidemia, Z00.01 - Encounter for general adult medical examination with abnormal findings, E89.40 - Asymptomatic postprocedural ovarian failure, Z72.0 - Tobacco use, Z28.21 - Immunization not carried out because of patient refusal, R73.01 - Impaired fasting glucose Aspartate Amino Transferase 04/23/23 E78.2 - Mixed hyperlipidemia, Z00.01 - Encounter for general adult medical examination with abnormal findings, E89.40 - Asymptomatic postprocedural ovarian failure, Z72.0 - Tobacco use, Z28.21 - Immunization not carried out because of patient refusal, R73.01 - Impaired fasting glucose MM tomosynthesis screening BI 04/19/23 Z12.31 - Encounter for screening mammogram for malignant neoplasm of breast, M85.89 - Other specified disorders of bone density and structure, multiple sites, E89.40 - Asymptomatic postprocedural ovarian failure XR DEXA axial skeleton 04/19/23 Z12.31 - Encounter for screening mammogram for malignant neoplasm of breast, M85.89 - Other specified disorders of bone density and structure, multiple sites, E89.40 - Asymptomatic postprocedural ovarian failure Lipid Panel 04/23/23 E78.2 - Mixed hyperlipidemia, Z00.01 - Encounter for general adult medical examination with abnormal findings Vitamin D 25-OH Total 04/23/23 E78.2 - Mixed hyperlipidemia, Z00.01 - Encounter for general adult medical examination with abnormal findings, E89.40 - Asymptomatic postprocedural ovarian failure, Z72.0 - Tobacco use, Z28.21 - Immunization not carried out because of patient refusal, R73.01 - Impaired fasting glucose Basic Metabolic Panel Fasting 04/23/23 E78.2 - Mixed hyperlipidemia, Z00.01 - Encounter for general adult medical examination with abnormal findings, E89.40 - Asymptomatic postprocedural ovarian failure, Z72.0 - Tobacco use, Z28.21 - Immunization not carried out because of patient refusal, R73.01 - Impaired fasting glucose Coding Level of Care Code Est Pt Prev Care 40-64y(19402) Diagnoses Annual visit for general adult medical examination with abnormal findings Z00.01 Mixed hyperlipidemia E78.2 Not ready to quit smoking Z72.0 Refused influenza vaccine Z28.21 Impaired fasting glucose R73.01 Vaccination refused by patient Z28.21 Osteopenia of multiple sites M85.89 Dyslipidemia E78.5 Tubular adenoma of colon D12.6 Additional Codes SUSY-7 Assessment Billing - SUSY-7 Assessment Tool: SUSY-7 Assessment 98178 ([id number])
[2023-04-19 11:17] VITALS: BP 124/80; PULSE 73; O2SAT 96; BMI 33.7
== END 2023-04-19 13:35 | disposition home or self-care (01) ==
PROVIDERS: Visit Provider Internal Medicine
DX: Z00.00 Encounter for general adult medical examination without abnormal findings (principal); E78.2 Mixed hyperlipidemia; Z72.0 Tobacco use; Z28.21 Immunization not carried out because of patient refusal; R73.01 Impaired fasting glucose; M85.89 Other specified disorders of bone density and structure, multiple sites; E78.5 Hyperlipidemia, unspecified; D12.6 Benign neoplasm of colon, unspecified
CPT/HCPCS: 99396

== ENCOUNTER 2023-04-23 07:07 | Outpatient (REF) | payer MEDICARE, MEDICAID, SELFPAY ==
[2023-04-23 11:33] LABS: Alanine Aminotransferase 15 U/L (0-31); Anion Gap 12 (12-20); Aspartate Amino Transferase 17 U/L (5-31); Blood Urea Nitrogen 12 mg/dL (9-16); Calcium 9.5 mg/dL (8.4-10.2); Carbon Dioxide 24 mmol/L (22-29); Chloride 106 mmol/L (96-108); Cholesterol 251 mg/dL (<200); Estimated Glomerular Filt Rate > 60; Glucose Fasting 99 mg/dL (60-99); HDL Cholesterol 47 mg/dL (>40); LDL Cholesterol Calculated 169 mg/dL (<100); Sodium 138 mmol/L (135-145); Triglycerides 178 mg/dL (<150)
[2023-04-23 11:49] LABS: Vitamin D 25-OH Total 47.7 ng/mL (>30)
== END 2023-04-23 07:08 | disposition home or self-care (01) ==
LOC: HO.HMGCLDS 07:07
PROVIDERS: PCP Internal Medicine; Visit Provider Internal Medicine
DX: Z00.01 Encounter for general adult medical examination with abnormal findings (principal); E78.2 Mixed hyperlipidemia; E89.40 Asymptomatic postprocedural ovarian failure; R73.01 Impaired fasting glucose; Z28.21 Immunization not carried out because of patient refusal; Z72.0 Tobacco use
CPT/HCPCS: 36415; 80048; 80061; 82306; 84450; 84460

== ENCOUNTER 2023-08-23 10:13 | Outpatient (REF) | payer MEDICARE, SELFPAY ==
--- NOTE | ~2023-08-23 | MM_ITS ---
EXAMINATION: BONE DENSITOMETRY CLINICAL INDICATION: Other specified disorders of bone density and structure. COMPARISON: Baseline BD dated 06/11/2020. TECHNIQUE: Using a [employer] Digital DXA System (software version: 13.1) manufactured by [employer], dual-energy x-ray absorptiometry was performed of the lumbar spine and left hip. The images are of good technical quality. Summary results are attached. FINDINGS: LEFT FEMUR, NECK: Current: BMD 0.839 g/cm2, Z-score -0.4, T-score -1.4, osteopenia. Baseline: BMD 0.884 g/cm2. LEFT FEMUR, TOTAL: Current: BMD 0.816 g/cm2, Z-score -0.8, T-score -1.5, osteopenia, 6.3% decrease from baseline (<5% change is not significant). Baseline: BMD 0.871 g/cm2. AP SPINE L1-L4: Current: BMD 1.075 g/cm2, Z-score 0.0, T-score -0.9, normal, 1.6% decrease from baseline (<5% change is not significant). Baseline: BMD 1.092 g/cm2. IDENTIFIED RISK FACTORS: Menopause, current smoker. HISTORY OF FRACTURE: None listed. MEDICATIONS: None listed. MM/XR DEXA axial skeleton IMPRESSION: 1. DIAGNOSIS: Osteopenia based on the lowest T-score value of -1.5 in the total femur applying World Health Organization criteria. 2. 10-YEAR FRACTURE RISK PREDICTION, FRAX: Major osteoporotic fracture (clinical spine, forearm, hip or shoulder) 8.2%. Hip fracture 1.3%. 3. Treatment Recommendations: NOF guidelines recommend consideration for treatment in postmenopausal women and men age 50 and older presenting with the following: -A hip or vertebral (clinical or morphometric) fracture. -T-score less than or equal to -2.5 at the femoral neck or spine after appropriate evaluation to exclude secondary causes. -Low bone mass at the hip or spine and a 10-year fracture probability by FRAX of greater than or equal to 3% for hip fracture or greater than or equal to 20% for major osteoporotic fracture based on the [place] adapted WHO algorithm. 4. Other Recommendations: All treatment decisions require clinical judgment and consideration of individual patient factors, including patient preferences, comorbidities, previous drug use, risk factors not captured in the FRAX model (e.g. frailty, falls, vitamin D deficiency, increased bone turnover, interval significant decline in bone density) and possible under or overestimation of fracture risk by FRAX. Additional medical evaluation for secondary cause of low bone mineral density may be appropriate. FUTURE SCAN RECOMMENDATION: People with diagnosed cases of osteoporosis or at high risk for fracture should have regular bone mineral density tests. For patients eligible for Medicare, routine testing is allowed once every 2 years. The testing frequency can be increased to one year for patients who have rapidly progressing disease, those who are receiving or discontinuing medical therapy to restore bone mass, or have additional risk factors.
== END 2023-08-23 10:14 | disposition home or self-care (01) ==
LOC: HO.MAMMO 10:13
PROVIDERS: PCP Internal Medicine; Visit Provider Internal Medicine
DX: Z12.31 Encounter for screening mammogram for malignant neoplasm of breast (principal); Z13.820 Encounter for screening for osteoporosis; Z78.0 Asymptomatic menopausal state; M85.859 Other specified disorders of bone density and structure, unspecified thigh; E89.40 Asymptomatic postprocedural ovarian failure
CPT/HCPCS: 77063; 77067; 77080

== ENCOUNTER → 2023-08-23 10:30 | Outpatient (BNV) | payer MEDICARE, MEDICAID, SELFPAY | PROVIDERS: PCP Internal Medicine; Visit Provider Radiology Diagnostic Radiology | DX: Z12.31 Encounter for screening mammogram for malignant neoplasm of breast (principal) | CPT/HCPCS: 77063; 77067 ==

== ENCOUNTER 2023-09-10 08:58 | Outpatient (AMB) | payer MEDICARE, MEDICAID, SELFPAY ==
[2023-09-10 10:30] VITALS: BP 126/70; PULSE 76; TEMP 36.4; O2SAT 97; BMI 34.0
--- NOTE | 2023-09-10 10:30 | AM.OFFWIN_ITS ---
Intake Vital Signs 09/10/23 10:30 Height 5 ft 2 in Weight 84.368 kg BMI 34.0 BP 126/70 Blood Pressure Location Lt brachial Position Sitting Pulse 76 Pulse Source Pulse Oximeter Temp 97.6 F Temp Source Temporal Artery Scan Pulse Oximetry (%) 97 Oxygen Delivery Method Room Air Intake Visit Reasons: EP RT ear/throat/neck pain Intake Note: pt is here today for rt ear throat neck pain started 3 days ago Patient Tobacco Use Status: Current everyday Tobacco user Allergies Penicillins [PENICILLINS] Allergy (Severe, Verified 09/10/23 10:33) RASH- 1970 very bad rash vancomycin Allergy (Verified 09/10/23 10:33) Itching Do you need a note to return to daycare/school/sports/work: Yes HPI EP RT ear/throat/neck pain HPI Details Patient presents with 3 days of pain in the right side of her throat neck in right ear. She feels her right ear is blocked with reduced hearing. She denies fever chills excessive upper respiratory congestion, cough, voice change, or difficulty swallowing. Has not tried any [id number] medications. She has had allergy symptoms in the past needing use of nasal sprays and mild clear nasal discharge this week. [facility] Medical History (Updated 04/30/23 @ 11:46 by Jeniffer Colunga MD) Lumbar spondylosis Osteopenia of multiple sites Mixed hyperlipidemia Acute anxiety Vaccination refused by patient Chronic low back pain Impaired fasting glucose Dyslipidemia Refused influenza vaccine Not ready to quit smoking Asymptomatic age-related postmenopausal state Tubular adenoma of colon Internal bleeding hemorrhoids Encounter for general adult medical examination with abnormal findings Surgical History Status post total left knee replacement Hx of total knee arthroplasty Hx of tubal ligation Hx of colonoscopy Family History Father Myocardial infarction CVD (cardiovascular disease) Mother Depression Sister No problems noted. Maternal Grandmother No problems noted. Maternal Grandfather No problems noted. Paternal Grandfather No problems noted. Paternal Grandmother No problems noted. Son No problems noted. Son No problems noted. Other Substance use disorder Social History Household Members: Spouse Housing: House Are you a primary pharmacist critical care to a significant other at home: No Do you presently have visiting nurse or other home services: No Alcohol intake: current Alcohol intake frequency: does not drink Alcohol type: beer and wine Patient Tobacco Use Status: Current everyday Tobacco user Tobacco use type: Cigarette Cigarette Packs Per Day: 0.5 Cigarettes Per Day: 10.0 Years Smoked: 40 e-Cigarette/Vaping Use: Never Used Second Hand Smoke Exposure: Yes service: No Current occupational status: disabled Current occupation: right handed Cognitive needs: No Hearing needs: No Vision needs: Yes Review of Systems Const Reports as per HPI and Reports no additional complaints ENT Reports no additional complaints and Reports as per HPI Card Reports as per HPI and Reports no additional complaints Resp Reports as per HPI and Reports no additional complaints Musc Reports no additional complaints and Reports as per HPI Skin/Breast Denies lesions Neuro Reports no additional complaints and Reports as per HPI Physical Exam Vital Signs: Last Vital Signs Temp 97.6 F 09/10/23 10:30 Pulse 76 09/10/23 10:30 BP 126/70 09/10/23 10:30 Pulse Ox 97 09/10/23 10:30 Oxygen Delivery Method Room Air 09/10/23 10:30 BMI result Body Mass Index 34.0 Const General: cooperative, comfortable and no acute distress Orientation/consciousness: patient oriented x3 HEENT Head: Yes normal to inspection Ears: external ears normal, TM's normal bilaterally and EAC's normal (Small amount of nonocclusive cerumen in right canal) General nose exam: Normal external nose present Face and sinus: Yes normal facial exam Mouth: Normal oral and palatal mucosa present, tongue normal, oropharynx normal and moist mucous membranes Throat: Yes posterior oropharynx normal, Yes tonsils normal, Yes uvula midline and No peritonsillar mass Neck Neck: Yes full ROM, Yes no lymphadenopathy and Yes tender (Along scalenes of the right, no mass or obvious swelling or adenopathy) Thyroid: Thyroid normal Carotids: no bruits Lymphatic: no lymphadenopathy noted Resp Effort & Inspection: normal respiratory effort Auscultation: clear to auscultation bilaterally Cardio Rate: regular rate Rhythm: regular rhythm Heart sounds: S1 normal heart sound present and S2 normal heart sound present Neuro General: patient oriented x3 Results AMB Rapid Strep AMB Rapid Strep Negative Last Edit by TAL Bazan on 09/10/23 11:0 7 Results Reviewed Results Reviewed: Laboratory Last Values Strep Scn [facility] Negative 09/10/23 11:05 Assessment & Plan Assessment & Plan (1) Eustachian tube dysfunction: Code(s): H69.90 - Unspecified Eustachian tube disorder, unspecified ear Qualifiers: Laterality: right Qualified Code(s): H69.91 - Unspecified Eustachian tube disorder, right ear Plan: Advised patient to trial course of allergy nasal spray and medication for 3-5 days to see if this clears the ear and reduce his pain. If fever develops or symptoms worsen can start antibiotic. If symptoms persist beyond a week or worsen in any way she should return to see PCP and consider imaging of the neck. ER if unable to swallow, severe pain, or unable to move neck. Orders: Orders AMB Rapid Strep Screen 09/10/23 Z13.9 - Encounter for screening, unspecified Medications: New cetirizine (Zyrtec) 10 mg PO DAILY PRN 30 caps 0RF allergy symptoms fluticasone propionate 50 mcg/actuation administer into each nostril 1 spray intranasal DAILY PRN 16 grams 0RF allergy symptoms azithromycin (Zithromax Z-Ilia) 2 pills day one then 1 pill per day x 4 days 250 mg PO DAILY 6 tabs 0RF 5 days Coding Level of Care Code Est Pt Level 3 (11297) Diagnoses Dysfunction of right eustachian tube H69.91 Laterality: right
== END 2023-09-10 11:15 | disposition home or self-care (01) ==
PROVIDERS: PCP Internal Medicine; Visit Provider Physician Assistant
DX: J02.9 Acute pharyngitis, unspecified (principal)
CPT/HCPCS: 87880; 99213

== ENCOUNTER 2024-02-07 09:38 | Outpatient (AMB) | payer MEDICARE, MEDICAID, SELFPAY ==
--- NOTE | 2024-02-07 09:42 | AM.OFFWIN_ITS ---
Intake Vital Signs 02/07/24 09:43 Height 5 ft 2 in Weight 176 lb BMI 32.2 BP 130/80 Blood Pressure Location Rt brachial Position Sitting Pulse 76 Pulse Source Pulse Oximeter Pulse Oximetry (%) 96 Oxygen Delivery Method Room Air Intake Visit Reasons: EP-b/l ear block Intake Note: Patient here for bilat ear blockage and pinching sensation in the left ear. Patient Tobacco Use Status: Current everyday Tobacco user Allergies Penicillins [PENICILLINS] Allergy (Severe, Verified 02/07/24 09:44) RASH- 1970' very bad rash vancomycin Allergy (Verified 02/07/24 09:44) Itching Do you need a note to return to daycare/school/sports/work: No HPI HPI Comments History of Present Illness Details Patient is a 63-year-old female complaining of both ears being blocked. She states that she feels like she is hearing things from behind a wall in her left ear has a pinching sensation. She denies any cough or congestion or fevers. She tells me she has been using Flonase and it seems to help a little bit but it is not going away. She does not take a daily allergy pill. [facility] Medical History (Updated 02/07/24 @ 10:03 by Maribel Merchant PA-C) Lumbar spondylosis Osteopenia of multiple sites Mixed hyperlipidemia Acute anxiety Vaccination refused by patient Chronic low back pain Impaired fasting glucose Dyslipidemia Refused influenza vaccine Not ready to quit smoking Asymptomatic age-related postmenopausal state Tubular adenoma of colon Internal bleeding hemorrhoids Encounter for general adult medical examination with abnormal findings Surgical History Status post total left knee replacement Hx of total knee arthroplasty Hx of tubal ligation Hx of colonoscopy Family History Father Myocardial infarction CVD (cardiovascular disease) Mother Depression Sister No problems noted. Maternal Grandmother No problems noted. Maternal Grandfather No problems noted. Paternal Grandfather No problems noted. Paternal Grandmother No problems noted. Son No problems noted. Son No problems noted. Other Substance use disorder Social History Household Members: Spouse Housing: House Are you a primary healthcare recruiter to a significant other at home: No Do you presently have visiting nurse or other home services: No Alcohol intake: current Alcohol intake frequency: does not drink Alcohol type: beer and wine Patient Tobacco Use Status: Current everyday Tobacco user Tobacco use type: Cigarette Cigarette Packs Per Day: 0.5 Cigarettes Per Day: 10.0 Years Smoked: 40 e-Cigarette/Vaping Use: Never Used Second Hand Smoke Exposure: Yes service: No Current occupational status: disabled Current occupation: right handed Cognitive needs: No Hearing needs: No Vision needs: Yes Review of Systems Const All systems reviewed & are unremarkable except as noted in HPI and below Physical Exam Vital Signs: Last Vital Signs Pulse 76 02/07/24 09:43 BP 130/80 02/07/24 09:43 Pulse Ox 96 02/07/24 09:43 Oxygen Delivery Method Room Air 02/07/24 09:43 BMI result Body Mass Index 32.2 Const General: cooperative, healthy appearing, comfortable and no acute distress Orientation/consciousness: patient oriented x3 Limitations: no limitations HEENT Head: Yes normal to inspection Ears: hearing grossly normal bilaterally, external ears normal, TM normal on the left, mastoids normal, Abnormal EAC present excessive cerumen on the right, erythema on the right and edema on the right and unable to visualize TM on the right General nose exam: Normal external nose present, Normal nares present and No nasal discharge present Face and sinus: Yes normal facial exam and Yes sinuses nontender Mouth: Normal oral and palatal mucosa present and moist mucous membranes Throat: Yes tonsils normal, Yes uvula midline and Yes posterior oropharynx abnormal (Erythema) Eyes General: appearance normal, both eyes and all related structures Neck Neck: Yes normal visual inspection Resp Effort & Inspection: normal respiratory effort, able to speak in complete sentences, no respiratory distress, not tachypneic, no tripod positioning and no use of accessory muscles Skin General skin exam: no rashes or lesions noted Neuro General: patient oriented x3 Extrem General: Yes normal to inspection and Yes no clubbing, cyanosis or edema Office Procedures Cerumen Removal From which ear canal was the cerumen removed: right Removal: otoscope w/curette Notes: patient tolerated procedure well, no complications and ear canal clear [id number] Wax Removal by Spoon/Curette Assessment & Plan Assessment & Plan (1) Acute swimmer's ear of right side: Code(s): H60.331 - Swimmer's ear, right ear Plan: Once we cleared the cerumen from the right ear, tympanic membrane looked normal. The ear canal did have some swelling and redness so we will treat with a steroid drop. Recommended patient start taking a daily allergy pill and continue the Flonase. Patient asking for a refill on her lorazepam, sent note to her PCP for a refill. Plan See above Medications: New hydrocortisone-acetic acid 1-2 % 4 drps otic (ear) right TID 10 mL 0RF Coding Level of Care Code Est Pt Level 4 (39430) Diagnoses Acute swimmer's ear of right side H60.331 CPT Codes Office Procedure - CPT: 73557-Usm Wax Removal by Spoon/Curette ([id number])
[2024-02-07 09:43] VITALS: BP 130/80; PULSE 76; O2SAT 96; BMI 32.2
== END 2024-02-07 10:28 | disposition home or self-care (01) ==
PROVIDERS: PCP Internal Medicine; Visit Provider Physician Assistant
DX: H60.331 Swimmer's ear, right ear (principal); H61.21 Impacted cerumen, right ear

== ENCOUNTER → 2024-02-07 09:38 | Outpatient (BNVA) | payer MEDICARE, MEDICAID, SELFPAY | PROVIDERS: PCP Internal Medicine; Visit Provider Physician Assistant | DX: H60.331 Swimmer's ear, right ear (principal); H61.21 Impacted cerumen, right ear | CPT/HCPCS: 69210; 99212 ==

== ENCOUNTER 2024-03-10 11:20 | Outpatient (AMB) | payer MEDICARE, MEDICAID, SELFPAY ==
--- NOTE | 2024-03-10 11:33 | MHC.PC.OV ---
Vital Signs 03/10/24 11:34 Height 5 ft 2 in Weight 178 lb BMI 32.6 BP 118/80 Blood Pressure Location Lt brachial Position Sitting Pulse 75 Pulse Source Pulse Oximeter Pulse Oximetry (%) 98 Oxygen Delivery Method Room Air Intake Visit Reasons: PossibleHemorrhoids Intake Note: Pt is here today c/o ?rectal prolapse Allergies Penicillins [PENICILLINS] Allergy (Severe, Verified 03/10/24 11:57) RASH- 1970's very bad rash vancomycin Allergy (Verified 03/10/24 11:57) Itching Medication List - Last Reconciled 03/10/24 by Jeniffer Colunga MD acetic acid 2% 3 drps otic (ear) right Q6H 7 days fluticasone propionate 50 mcg/actuation 1 spray intranasal DAILY PRN levocetirizine (Xyzal) 5 mg PO DAILY Tobacco use date assessed: 04/19/23 Dental Screening Dental Screen Date: 04/19/23 HPI PossibleHemorrhoids HPI Details 63-year-old female presenting today complaining of sensation of a mass protruding post-defecation, requiring manual reduction. This has been accompanied by soiling of underwear with fecal incontinence, despite having regular formed bowel movements. Previously, she was diagnosed with both internal and external hemorrhoids and sigmoid diverticulosis during a colonoscopy in 2021. The condition has progressively worsened, causing significant distress and impacting daily life, with residual stool sensation post-defecation . The patient has used [id number]-[id number] cream hemorrhoidal bleeding in the past, with significant improvement, but a concern for possible rectal prolapse remains. She also has been having recent onset of intense right upper quadrant abdominal pain following meals, which started approximately a week ago. The patient has a history of using cooe-zjn-[id number] Hem Anusol for hemorrhoidal bleeding, with significant improvement, but a concern for ongoing rectal prolapse remains. Discussion ruled out a gynecological cause for the rectal issue. [facility] Medical History (Updated 03/10/24 @ 12:13 by Jeniffer Colunga MD) Acquired deformity of toenail Right upper quadrant abdominal pain Lumbar spondylosis Osteopenia of multiple sites Mixed hyperlipidemia Acute anxiety Vaccination refused by patient Chronic low back pain Impaired fasting glucose Dyslipidemia Refused influenza vaccine Not ready to quit smoking Asymptomatic age-related postmenopausal state Tubular adenoma of colon Internal bleeding hemorrhoids Encounter for general adult medical examination with abnormal findings Surgical History Status post total left knee replacement Hx of total knee arthroplasty Hx of tubal ligation Hx of colonoscopy Family History Father Myocardial infarction CVD (cardiovascular disease) Mother Depression Sister No problems noted. Maternal Grandmother No problems noted. Maternal Grandfather No problems noted. Paternal Grandfather No problems noted. Paternal Grandmother No problems noted. Son No problems noted. Son No problems noted. Other Substance use disorder Social History Household Members: Spouse Housing: House Are you a primary special needs caregiver to a significant other at home: No Do you presently have visiting nurse or other home services: No Alcohol intake: current Alcohol intake frequency: does not drink Alcohol type: beer and wine Patient Tobacco Use Status: Current everyday Tobacco user Tobacco use type: Cigarette Cigarette Packs Per Day: 0.5 Cigarettes Per Day: 10.0 Years Smoked: 40 e-Cigarette/Vaping Use: Never Used Second Hand Smoke Exposure: Yes service: No Current occupational status: disabled Current occupation: right handed Cognitive needs: No Hearing needs: No Vision needs: Yes Questionnaire Thrive Questionnaire Date Thrive assessed: 03/07/24 I am a: Patient What is your living situation today?: I have a steady place to live Within the past 12 months, did the food you bought not last and you didn't have the money to get more?: I choose not to answer this question Within the past 12 months, did you worry whether your food would run out before you got money to buy more?: I choose not to answer this question Do you have trouble paying for medicines?: No Do you have trouble getting transportation to medical appointments?: No Do you have trouble paying your heating and electricity bill?: No Do you have trouble taking care of your child, family member or friend?: No Do you have trouble with day-to-day activities such as bathing, preparing meals, shopping, managing finances, etc.?: No Are you currently unemployed and looking for a job?: No Are you interested in more education?: No Please select the resources that you would like help with: None Currently or been in a relationship where the following occur: No concerns reported and I choose not to answer THRIVE Score: 0 AUDIT C Alcohol Use Questionnaire (AUDIT-C) 1. How often do you have a drink containing alcohol?: 2-4 times a month 2. How many drinks containing alcohol do you have on a typical day when you are drinking?: 1 or 2 3. How often do you have six or more drinks on one occasion?: Never Total Score: 2 SUSY-7 AMB Questionnaire USSY-7 Date SUSY - 7 assessed: 04/19/23 Feeling nervous, anxious, or on edge: 1 = Several days Not being able to stop or control worryin = Not at all Worrying too much about different things: 1 = Several days Trouble relaxin = Several days Being so restless that it is hard to sit still: 0 = Not at all Becoming easily annoyed or irritable: 0 = Not at all Feeling afraid as if something awful might happen: 1 = Several days Total SUSY-7 score (0-4 normal; 5-9 mild; 10-14 moderate; 15-21 severe): 4 Source: Developed by Drs. Steve Ernst, Latesha Horton, Lanre Vegas and colleagues, with an educational lesley from [email or web address]. Review of Systems Const Reports no additional complaints GI Reports as per HPI, Denies belching, Denies melena, Denies bloating, Denies constipation and Denies diarrhea Reports no additional complaints Physical exam (Primary Care) Vital Signs: Last Vital Signs Pulse 75 03/10/24 11:34 BP 118/80 03/10/24 11:34 Pulse Ox 98 03/10/24 11:34 Oxygen Delivery Method Room Air 03/10/24 11:34 BMI result Body Mass Index 32.6 Tobacco/Smoking Status: Tobacco use Status Tobacco use date assessed 04/19/23 03/10/24 11:37 Patient Tobacco Use Status Current everyday Tobacco 03/10/24 11:37 Tobacco use type Cigarette 03/10/24 11:37 e-Cigarette/Vaping Use Never Used 03/10/24 11:37 Thrive Assessment: Date of Thrive Assessment Date Thrive assessed 03/07/24 03/10/24 11:37 Currently or been in a relationship where the following occur: No concerns reported and I choose not to answer Const Other: Alert oriented x3, no acute distress noted ambulatory normal gait HENMT Mouth: oropharynx normal and moist mucous membranes abnormal Neck Neck: Yes full ROM, Yes no lymphadenopathy and Yes supple Resp Auscultation: clear to auscultation bilaterally Cardio Other: S1-S2 present regular rate and GI Palpation (GI): Soft to palpation, Tenderness to palpation present (GI) in the epigastrum and in the RUQ; Crook's sign negative, with no rebound tenderness and Rovsing's sign negative, no guarding and Other GI palpation findings present (Negative Crook's sign) Rectal Exam - Female: decreased sphincter tone and External hemorrhoid(s) present (Nonthrombosed at 5 o'clock position) Skin Nails: yellow and thickened (Toenails bilaterally) Coding Level of Care Code Est Pt Level 4 (04300) Diagnoses Right upper quadrant abdominal pain R10.11 Rectal mass K62.89 Incontinence of feces with incomplete defecation R15.9; R15.0 Hypertrophic toenail L60.2 Assessment & Plan Assessment & Plan (1) Right upper quadrant abdominal pain: Code(s): R10.11 - Right upper quadrant pain Category: Medical (2) Rectal mass: Code(s): K62.89 - Other specified diseases of anus and rectum (3) Incontinence of feces with incomplete defecation: Code(s): R15.9 - Full incontinence of feces; R15.0 - Incomplete defecation (4) Hypertrophic toenail: Code(s): L60.2 - Onychogryphosis Plan - Referral to a colorectal surgeon for comprehensive evaluation and treatment options. - Hemorrhoids: Discussed ongoing use of Hem Anusol suppositories for symptom relief; reassessed necessity for prescription strength upon patient request. - Possible Gallbladder Disease: Ordered abdominal ultrasound to evaluate for cholelithiasis or cholecystitis given current symptoms. - possible Onychomycosis: Recommended consultation with a director sales support for diagnostic confirmation and potential systemic antifungal treatment. Patient was informed and verbally consented to the use of an ambient scribe for clinic note documentation during this visit. Orders: Orders US abdomen complete 03/10/24 R10.11 - Right upper quadrant pain Referrals General Surgery Referral K62.89 - Other specified diseases of anus and rectum, R15.0 - Incomplete defecation, R15.9 - Full incontinence of feces Podiatry Referral L60.2 - Onychogryphosis, L60.8 - Other nail disorders
[2024-03-10 11:34] VITALS: BP 118/80; PULSE 75; O2SAT 98; BMI 32.6
== END 2024-03-10 13:48 | disposition home or self-care (01) ==
PROVIDERS: PCP Internal Medicine; Visit Provider Internal Medicine
DX: R10.11 Right upper quadrant pain (principal); K62.89 Other specified diseases of anus and rectum; R15.9 Full incontinence of feces; R15.0 Incomplete defecation; L60.2 Onychogryphosis

== ENCOUNTER → 2024-03-10 11:20 | Outpatient (BNVA) | payer MEDICARE, MEDICAID, SELFPAY | PROVIDERS: PCP Internal Medicine; Visit Provider Internal Medicine | DX: R10.11 Right upper quadrant pain (principal); K62.89 Other specified diseases of anus and rectum; R15.9 Full incontinence of feces; R15.0 Incomplete defecation; L60.2 Onychogryphosis | CPT/HCPCS: 99212 ==

== ENCOUNTER 2024-03-17 09:53 | Outpatient (REF) | payer MEDICARE, MEDICAID, SELFPAY ==
--- NOTE | ~2024-03-17 | US_ITS ---
EXAMINATION: US ABDOMEN COMPLETE CLINICAL INFORMATION: Right upper quadrant pain. COMPARISON: CT abdomen and pelvis 10/04/2018. Ultrasound abdomen 12/27/2009. TECHNIQUE: Real-time imaging of the abdominal viscera. FINDINGS: PANCREAS: Visualized portions are unremarkable. ABDOMINAL AORTA: The proximal, mid, and distal segments are normal in caliber. INFERIOR VENA CAVA: Visualized portions are normal. LIVER: The liver is normal in size. The liver contour is normal. Increased echogenicity of the liver parenchyma, this can be seen in the setting of hepatic steatosis or liver parenchymal disease. No focal hepatic lesion. There is no intrahepatic biliary duct dilatation seen. GALLBLADDER: The gallbladder is physiologically distended without evidence of stones, sludge, polyps, wall thickening or pericholecystic fluid. COMMON BILE DUCT: Normal in caliber measuring 0.4 cm in diameter. RIGHT KIDNEY: No hydronephrosis. No renal calculi or focal parenchymal lesions. The kidney measures 11.2 cm in maximum dimension. LEFT KIDNEY: No hydronephrosis. No renal calculi or focal parenchymal lesions. The kidney measures 11.0 cm in maximum dimension. SPLEEN: The spleen measures 9.9 cm in maximum dimension. FREE FLUID: None. US/US abdomen complete IMPRESSION: No ultrasound explanation for patient's pain. No gallstone or gallbladder disease. Increased echogenicity of the liver parenchyma, this can be seen in the setting of hepatic steatosis or liver parenchymal disease. Electronically signed by: Bernard Jerome MD 03/30/2024 01:19 PM [facility] [place]
== END 2024-03-17 09:54 | disposition home or self-care (01) ==
LOC: HO.HMGCX 09:53
PROVIDERS: PCP Internal Medicine; Visit Provider Internal Medicine
DX: R10.11 Right upper quadrant pain (principal)
CPT/HCPCS: 76700

== ENCOUNTER 2024-03-25 08:15 | Outpatient (AMB) | payer MEDICARE, MEDICAID, SELFPAY ==
--- NOTE | 2024-03-25 08:44 | MHC.OFFWIV ---
Intake Vital Signs 03/25/24 08:46 Weight 178 lb BP 140/90 H Blood Pressure Location Lt brachial Position Sitting Pulse 94 Pulse Source Pulse Oximeter Temp 98.3 F Temp Source Oral Pulse Oximetry (%) 98 Oxygen Delivery Method Room Air Intake Visit Reasons: EP-UTI Intake Note: Patient here for frequent urination and burning which started yesterday. Patient Tobacco Use Status: Current everyday Tobacco user Allergies Penicillins [PENICILLINS] Allergy (Severe, Verified 03/25/24 08:47) RASH- 1970' very bad rash vancomycin Allergy (Verified 03/25/24 08:47) Itching Do you need a note to return to daycare/school/sports/work: No HPI HPI Comments History of Present Illness Details History of Present Illness The patient is a 63-year-old female presenting with symptoms related to a urinary tract infection and reported palpitations. The patient has been experiencing urinary frequency and dysuria with a pinching and burning sensation over the past two days. She reports this recurrence of urinary tract infections particularly when she was sexual active in the past. The urine sample provided was noted to be cloudy with microscopic hematuria and proteinuria, though the patient denies any fever or back pain. There is no known history of kidney stones. Approximately two weeks prior, the patient underwent an ultrasound, which included an evaluation of her kidneys, although the results have not been accessed yet. Additionally, the patient reports a history of arrhythmia that used to occur but has worsened over the past few days to present with palpitations and increased heart rate following physical activity or eating. She denies dizziness or lightheadedness. She previously underwent cardiac evaluation, which was found not to show any arrhythmia but rather tachycardia, supported by a normal HR reading at 94. Physical Exam General: Cooperative, healthy appearing, comfortable, no acute distress and well developed Orientation: Patient oriented x3 Limitations: No limitations Head: Normal to inspection Ears: Hearing grossly normal bilaterally Nose: Normal external nose present Face and sinus: Normal facial exam Eyes: Appearance normal, both eyes and all related structures Neck: Normal visual inspection and Yes full ROM Respiratory: Normal respiratory effort and able to speak in complete sentences. Clear to auscultation bilaterally Cardiovascular: regular rate and rhythm, normal S1 and S2 Skin: No rashes or lesions noted Neuro: Patient oriented x3 Extremities: Normal to inspection [facility] Medical History (Updated 03/25/24 @ 09:19 by Maribel Merchant PA-C) Acquired deformity of toenail Right upper quadrant abdominal pain Lumbar spondylosis Osteopenia of multiple sites Mixed hyperlipidemia Acute anxiety Vaccination refused by patient Chronic low back pain Impaired fasting glucose Dyslipidemia Refused influenza vaccine Not ready to quit smoking Asymptomatic age-related postmenopausal state Tubular adenoma of colon Internal bleeding hemorrhoids Encounter for general adult medical examination with abnormal findings Surgical History Status post total left knee replacement Hx of total knee arthroplasty Hx of tubal ligation Hx of colonoscopy Family History Father Myocardial infarction CVD (cardiovascular disease) Mother Depression Sister No problems noted. Maternal Grandmother No problems noted. Maternal Grandfather No problems noted. Paternal Grandfather No problems noted. Paternal Grandmother No problems noted. Son No problems noted. Son No problems noted. Other Substance use disorder Social History Household Members: Spouse Housing: House Are you a primary cattle care worker to a significant other at home: No Do you presently have visiting nurse or other home services: No Alcohol intake: current Alcohol intake frequency: does not drink Alcohol type: beer and wine Patient Tobacco Use Status: Current everyday Tobacco user Tobacco use type: Cigarette Cigarette Packs Per Day: 0.5 Cigarettes Per Day: 10.0 Years Smoked: 40 e-Cigarette/Vaping Use: Never Used Second Hand Smoke Exposure: Yes service: No Current occupational status: disabled Current occupation: right handed Cognitive needs: No Hearing needs: No Vision needs: Yes Review of Systems Const All systems reviewed & are unremarkable except as noted in HPI and below Physical Exam Vital Signs: Last Vital Signs Temp 98.3 F 03/25/24 08:46 Pulse 94 03/25/24 08:46 BP 140/90 H 03/25/24 08:46 Pulse Ox 98 03/25/24 08:46 Oxygen Delivery Method Room Air 03/25/24 08:46 Assessment & Plan Assessment & Plan (1) UTI (urinary tract infection): Code(s): N39.0 - Urinary tract infection, site not specified Qualifiers: Urinary tract infection type: acute cystitis Hematuria presence: with hematuria Qualified Code(s): N30.01 - Acute cystitis with hematuria Plan: - Prescribe cephalosporin antibiotic twice daily for five days for the treatment of the urinary tract infection. Monitor for any adverse reactions due to known penicillin allergy, despite low cross-reactivity. - Remind patient to monitor symptoms, particularly seeking urgent care if any fevers or development of back pain occurs. Patient was informed and verbally consented to the use of an ambient scribe for clinic note documentation during this visit. (2) Palpitations with regular cardiac rhythm: Code(s): R00.2 - Palpitations Plan: - Encourage patient to discuss her rapid heartbeat with her primary care physician during her upcoming appointment for further evaluation, including potential thyroid screening. - If lightheaded or dizzy or chest pain or symptoms get worse, should go to the ED. Medications: New cefuroxime axetil 500 mg PO Q12H 10 tabs 0RF Coding Level of Care Code Est Pt Level 4 (86556) Diagnoses Acute cystitis with hematuria N30.01 Urinary tract infection type: acute cystitis Hematuria presence: with hematuria Palpitations with regular cardiac rhythm R00.2
[2024-03-25 08:46] VITALS: BP 140/90; PULSE 94; TEMP 36.8; O2SAT 98
== END 2024-03-25 09:22 | disposition home or self-care (01) ==
PROVIDERS: PCP Internal Medicine; Visit Provider Physician Assistant
DX: N30.01 Acute cystitis with hematuria (principal); R00.2 Palpitations; Z13.9 Encounter for screening, unspecified

== ENCOUNTER → 2024-03-25 08:15 | Outpatient (BNVA) | payer MEDICARE, MEDICAID, SELFPAY | PROVIDERS: PCP Internal Medicine; Visit Provider Physician Assistant | DX: N30.01 Acute cystitis with hematuria (principal); R00.2 Palpitations | CPT/HCPCS: 81003; 99212 ==

== ENCOUNTER 2024-04-03 08:02 | Outpatient (AMB) | payer MEDICARE, MEDICAID, SELFPAY ==
--- NOTE | 2024-04-03 08:44 | AM.OFFWIN_ITS ---
Intake Vital Signs 04/03/24 08:49 Weight 178 lb BP 126/80 Blood Pressure Location Rt brachial Position Sitting Pulse 78 Pulse Source Pulse Oximeter Temp 98.0 F Temp Source Oral Pulse Oximetry (%) 98 Oxygen Delivery Method Room Air Intake Visit Reasons: EP ?UTI ~ finished meds Intake Note: Patient here for UTI that she was treated for and finished antibiotics about 2 days ago and is still having burning on urination and frequency. Patient Tobacco Use Status: Current everyday Tobacco user Allergies Penicillins [PENICILLINS] Allergy (Severe, Verified 04/03/24 08:49) RASH- very bad rash vancomycin Allergy (Verified 04/03/24 08:49) Itching Do you need a note to return to daycare/school/sports/work: No HPI HPI Comments History of Present Illness Details History of Present Illness - The patient is a 63-year-old female pr esenting with recurrent urinary tract infection symptoms. - Initial UTI symptoms began on March 18, with culture confirming infection, unclear if this was treated - This provider saw her on 03/25[facility] [place] [facility], treatment with cefuroxime resulted in symptom improvement, completed by March 29. - Symptoms recurred on April 05, ma rked by increased urinary frequency and painful urination, but without systemic symptoms like fever or low back pain. - Sexual intercourse prior to symptom re currence was noted, although hygienic practices were followed post-coitus. . Physical Exam General: Cooperative, healthy appearing, comfortable, no acute distress and well developed Orientation: Patient oriented x3 Limitations: No limitations Head: Normal to inspection Ears: Hearing grossly normal bilaterally Nose: Normal external nose present Face and sinus: Normal facial exam Eyes: Appearance normal, both eyes and all related structures Neck: Normal visual inspection and Yes full ROM Respiratory: Normal respiratory effort and able to speak in complete sentences Skin: No rashes or lesions noted Neuro: Patient oriented x3 Extremities: Normal to inspection [facility] Medical History (Updated 04/03/24 @ 09:05 by Maribel Merchant PA-C) Acquired deformity of toenail Right upper quadrant abdominal pain Lumbar spondylosis Osteopenia of multiple sites Mixed hyperlipidemia Acute anxiety Vaccination refused by patient Chronic low back pain Impaired fasting glucose Dyslipidemia Refused influenza vaccine Not ready to quit smoking Asymptomatic age-related postmenopausal state Tubular adenoma of colon Internal bleeding hemorrhoids Encounter for general adult medical examination with abnormal findings Surgical History Status post total left knee replacement Hx of total knee arthroplasty Hx of tubal ligation Hx of colonoscopy Family History Father Myocardial infarction CVD (cardiovascular disease) Mother Depression Sister No problems noted. Maternal Grandmother No problems noted. Maternal Grandfather No problems noted. Paternal Grandfather No problems noted. Paternal Grandmother No problems noted. Son No problems noted. Son No problems noted. Other Substance use disorder Social History Household Members: Spouse Housing: House Are you a primary health care attorney to a significant other at home: No Do you presently have visiting nurse or other home services: No Alcohol intake: current Alcohol intake frequency: does not drink Alcohol type: beer and wine Patient Tobacco Use Status: Current everyday Tobacco user Tobacco use type: Cigarette Cigarette Packs Per Day: 0.5 Cigarettes Per Day: 10.0 Years Smoked: 40 e-Cigarette/Vaping Use: Never Used Second Hand Smoke Exposure: Yes service: No Current occupational status: disabled Current occupation: right handed Cognitive needs: No Hearing needs: No Vision needs: Yes Review of Systems Const All systems reviewed & are unremarkable except as noted in HPI and below Physical Exam Vital Signs: Last Vital Signs Temp 98.0 F 04/03/24 08:49 Pulse 78 04/03/24 08:49 BP 126/80 04/03/24 08:49 Pulse Ox 98 04/03/24 08:49 Oxygen Delivery Method Room Air 04/03/24 08:49 Assessment & Plan Assessment & Plan (1) Complicated UTI (urinary tract infection): Code(s): N39.0 - Urinary tract infection, site not specified Plan: UA #+ leuks, 1+ protein, 3+ blood, negative nitrites The recurrent urinary tract infection will be managed with an extended 10-day course of cefuroxime, while pending a urine culture to ensure proper bacterial sensitivity and address any potential persistent bacterial colonization. Given the recurrence despite prior antibiotic therapy, a longer course is aimed at fully resolving infection, classified now as a complicated UTI. Emphasis on continued hygienic practices post coitus was reiterated to reduce reinfection risk. Further management decisions will hinge upon eventual culture findings and initial treatment success. Patient was informed and verbally consented to the use of an ambient scribe for clinic note documentation during this visit. Orders: Orders Urine Culture Today N39.0 - Urinary tract infection, site not specified Medications: New cefuroxime axetil 500 mg PO Q12H 20 tabs 0RF Coding Level of Care Code Est Pt Level 4 (82562) Diagnoses Complicated UTI (urinary tract infection) N39.0
[2024-04-03 08:49] VITALS: BP 126/80; PULSE 78; TEMP 36.7; O2SAT 98
== END 2024-04-03 10:17 | disposition home or self-care (01) ==
PROVIDERS: PCP Internal Medicine; Visit Provider Physician Assistant
DX: N39.0 Urinary tract infection, site not specified (principal); Z13.9 Encounter for screening, unspecified

== ENCOUNTER → 2024-04-03 08:02 | Outpatient (BNVA) | payer MEDICARE, MEDICAID, SELFPAY | PROVIDERS: PCP Internal Medicine; Visit Provider Physician Assistant | DX: N39.0 Urinary tract infection, site not specified (principal); F17.210 Nicotine dependence, cigarettes, uncomplicated | CPT/HCPCS: 81003; 87086; 99212 ==

== ENCOUNTER 2024-05-01 08:57 | Outpatient (AMB) | payer MEDICARE, MEDICAID, SELFPAY ==
[2024-05-01 09:22] VITALS: BP 136/80; PULSE 87; RESP 16; TEMP 36.6; O2SAT 97; BMI 32.0
--- NOTE | 2024-05-01 09:22 | A.OFFPC_ITS ---
Vital Signs 05/01/24 09:22 Height 5 ft 2 in Weight 175 lb BMI 32.0 BP 136/80 Blood Pressure Location Lt brachial Position Sitting Respiration 16 Pulse 87 Pulse Source Pulse Oximeter Temp 98 F Temp Source Oral Pulse Oximetry (%) 97 Oxygen Delivery Method Room Air Intake Visit Reasons: PE Annual Intake Note: Pt is here today for her PE: Last mammogram 08/23/23, bone density scan 08/23/23, papsmear 10/31/17, colonoscopy 11/01/16 Allergies Penicillins [PENICILLINS] Allergy (Severe, Verified 05/04/24 14:36) RASH- very bad rash vancomycin Allergy (Verified 05/04/24 14:36) Itching Medication List - Last Reconciled 05/04/24 by Jeniffer Colunga MD No Known Home Meds Tobacco use date assessed: 05/01/24 Fall risk assessment: No Falls in past year Last assessed Fall Risk: 05/01/24 Dental Screening Dental Screen Date: 05/01/24 Did you have a dental visit in the last 12 months?: No Did you have a dental problem in the last 6 months where you did not have access to dental care?: No Was dental information given to patient?: Patient has dentist HPI PE Annual HPI Details 63-year-old lady history of osteopenia o f multiple sites, mixed hyperlipidemia, history of adenomatous polyp of colon, osteoarthritis and active cigarette smoker with no desire to quit at present time, here today for physical exam. She is up-to-date with her screening mammogram done last 08/23/2023, with future mammogram already scheduled for 08/28/2024. Last bone density scan done 08/23/2023 showed presence of osteopenia in left femoral neck and left femur, normal in T-spine with no history of fractures. Last screening colonoscopy was done by Dr. New 02/01/2022, which showed presence of sigmoid diverticulosis and internal hemorrhoids, with repeat colonoscopy due again in 2026 due to positive history of colonic adenomatous polyp. She has been feeling well except for intermittent episodes of palpitations accompanied by shortness of breath but no chest pain or lightheadedness reported [facility] Medical History (Updated 05/04/24 @ 15:25 by Jeniffer Colunga MD) Intermittent palpitations Acquired deformity of toenail Lumbar spondylosis Osteopenia of multiple sites Mixed hyperlipidemia Acute anxiety Vaccination refused by patient Chronic low back pain Impaired fasting glucose Refused influenza vaccine Not ready to quit smoking Tubular adenoma of colon Internal bleeding hemorrhoids Encounter for general adult medical examination with abnormal findings Surgical History Status post total left knee replacement Hx of total knee arthroplasty Hx of tubal ligation Hx of colonoscopy Family History Father Myocardial infarction CVD (cardiovascular disease) Mother Depression Sister No problems noted. Maternal Grandmother No problems noted. Maternal Grandfather No problems noted. Paternal Grandfather No problems noted. Paternal Grandmother No problems noted. Son No problems noted. Son No problems noted. Other Substance use disorder Social History Household Members: Spouse Housing: House Are you a primary acute care certified nursing assistant to a significant other at home: No Do you presently have visiting nurse or other home services: No Alcohol intake: current Alcohol intake frequency: does not drink Alcohol type: beer and wine Patient Tobacco Use Status: Current everyday Tobacco user Tobacco use type: Cigarette Cigarette Packs Per Day: 0.5 Cigarettes Per Day: 10.0 Years Smoked: 40 e-Cigarette/Vaping Use: Never Used Second Hand Smoke Exposure: Yes service: No Current occupational status: disabled Current occupation: right handed Cognitive needs: No Hearing needs: No Vision needs: Yes Questionnaire PHQ-9 Over the last 2 weeks, how often have you been bothered by any of the following problems? 1. Little interest or pleasure in doing things: not at all 2. Feeling down, depressed, or hopeless: not at all 3. Trouble falling or staying asleep, or sleeping too much: not at all 4. Feeling tired or having little energy: not at all 5. Poor appetite or overeating: not at all 6. Feeling bad about yourself - or that you are a failure or have let yourself or your family down: not at all 7. Trouble concentrating on things, such as reading the newspaper or watching television: not at all 8. Moving or speaking so slowly that other people could have noticed. Or the opposite - being so fidgety or restless that you have been moving around a lot more than usual: not at all 9. Thoughts that you would be better off or of hurting yourself in some way: not at all Total score: 0 Depression Screening Interpretation: Negative Depression Screening Done: Yes 17523 - PHQ-9 Billing: Yes Source: Developed by Drs. Steve Ernst, Latesha Horton, Lanre Vegas and colleagues, with an educational lesley from [employer]. Thrive Questionnaire Date Thrive assessed: 05/01/24 I am a: Patient What is your living situation today?: I have a steady place to live Within the past 12 months, did the food you bought not last and you didn't have the money to get more?: Never true Within the past 12 months, did you worry whether your food would run out before you got money to buy more?: Never true Do you have trouble paying for medicines?: No Do you have trouble getting transportation to medical appointments?: Yes Do you have trouble paying your heating and electricity bill?: No Do you have trouble taking care of your child, family member or friend?: No Do you have trouble with day-to-day activities such as bathing, preparing meals, shopping, managing finances, etc.?: No Are you currently unemployed and looking for a job?: No Are you interested in more education?: No Please select the resources that you would like help with: None Currently or been in a relationship where the following occur: No concerns reported THRIVE Score: 1 AUDIT C Alcohol Use Questionnaire (AUDIT-C) 1. How often do you have a drink containing alcohol?: 2-4 times a month 2. How many drinks containing alcohol do you have on a typical day when you are drinking?: 5 or 6 3. How often do you have six or more drinks on one occasion?: Less than monthly Total Score: 5 SUSY-7 AMB Questionnaire SUSY-7 Date SUSY - 7 assessed: 05/01/24 Feeling nervous, anxious, or on edge: 0 = Not at all Not being able to stop or control worryin = Not at all Worrying too much about different things: 0 = Not at all Trouble relaxin = Not at all Being so restless that it is hard to sit still: 0 = Not at all Becoming easily annoyed or irritable: 0 = Not at all Feeling afraid as if something awful might happen: 0 = Not at all Total SUSY-7 score (0-4 normal; 5-9 mild; 10-14 moderate; 15-21 severe): 0 Source: Developed by Drs. Steve Ernst, Latesha Horton, Lanre Vegas and colleagues, with an educational lesley from [employer]. Review of Systems Const Denies fatigue, Denies headache(s), Denies lethargy and Denies malaise Eyes Reports no additional complaints ENT Reports no additional complaints, Denies dizziness and Denies headache(s) Card Reports as per HPI, Denies chest pain, Denies irregular heart rhythm and Denies lightheadedness Resp Reports no additional complaints GI Reports no additional complaints Reports no additional complaints Musc Reports no additional complaints Skin/Breast Denies breast pain, Denies breast mass, Denies lesions and Denies rash Neuro Denies dizziness and Denies headache(s) Psych Reports no additional complaints Endo Denies fatigue Sharif/Lymph Reports no additional complaints Aller/Immun Reports no additional complaints Physical exam (Primary Care) Vital Signs: Last Vital Signs Temp 98 F 05/01/24 09:22 Pulse 87 05/01/24 09:22 Resp 16 05/01/24 09:22 BP 136/80 05/01/24 09:22 Pulse Ox 97 05/01/24 09:22 Oxygen Delivery Method Room Air 05/01/24 09:22 BMI result Body Mass Index 32.0 Tobacco/Smoking Status: Tobacco use Status Tobacco use date assessed 05/01/24 05/01/24 09:24 Patient Tobacco Use Status Current everyday Tobacco 05/01/24 09:24 Tobacco use type Cigarette 05/01/24 09:24 e-Cigarette/Vaping Use Never Used 05/01/24 09:24 PHQ-9: PHQ-9 Score PHQ-9: Total score 0 05/01/24 10:14 Depression Screening Interpretation: Negative Thrive Assessment: Date of Thrive Assessment Date Thrive assessed 05/01/24 05/01/24 09:24 Currently or been in a relationship where the following occur: No concerns reported Const Other: Alert oriented x3, no acute distress noted ambulatory normal gait Orientation/consciousness: patient oriented x3 HENMT Mouth: oropharynx normal and moist mucous membranes abnormal Eyes General: appearance normal, both eyes and all related structures Neck Neck: Yes full ROM, Yes no lymphadenopathy and Yes supple Chest Chest palpation & inspection: normal inspection of the chest Breast/axilla palpation: normal palpation of the breasts Resp Auscultation: clear to auscultation bilaterally Cardio Rate: regular rate Rhythm: regular rhythm Heart sounds: S1 normal heart sound present and S2 normal heart sound present Bruits: no carotid bruits GI Palpation (GI): Soft to palpation, nontender and no guarding Auscultation: normal bowel sounds General: Yes no CVA tenderness Back/Spine/Pelvis Back: no CVA tenderness and No back tenderness Skin General skin exam: no rashes or lesions noted Nails: yellow and thickened (Toenails bilaterally) Neuro General: patient oriented x3, gait normal, moves all extremities, Normal light touch and pain sensation and no focal motor deficits Extrem General: Yes normal to inspection, Yes full ROM, Yes no joint enlargement, Yes no clubbing, cyanosis or edema, Yes no pedal edema, Yes no calf tenderness and Yes normal gait Psych Appearance: grossly normal and well kempt Mental Status: mental status grossly normal Speech and movement: Normal speech and movement present Affect: normal affect Attitude: cooperative Thought process: Normal thought process present Coding Level of Care Code Est Pt Prev Care >65y(81803) Diagnoses Annual visit for general adult medical examination with abnormal findings Z00.01 Intermittent palpitations R00.2 Osteopenia of multiple sites M85.89 Mixed hyperlipidemia E78.2 Vaccination refused by patient Z28.21 Impaired fasting glucose R73.01 Not ready to quit smoking Z72.0 Additional Codes PHQ-9 - 85729 - PHQ-9 Billing: Yes ([id number]) Assessment & Plan Assessment & Plan (1) Annual visit for general adult medical examination with abnormal findings: Code(s): Z00.01 - Encounter for general adult medical examination with abnormal findings Plan: Will check appropriate labs. Recommended dental visit every 6 months and regular eye exams, at least every 2 years. Take adequate calcium in diet and vitamin-D 3 at 2000 IU per cap once a day, in addition to weight-bearing exercises to help maintain good muscle tone and weight control. Instructed to do self-breast exam, up-to-date with her yearly mammogram, screening mammogram for this year already scheduled. Patient no longer gets cervical cancer screenings.. Refusing to get any vaccinations. Up-to-date with her screening colonoscopy due again in 2026. Up-to-date with her bone density scan, due again next year (2) Intermittent palpitations: Code(s): R00.2 - Palpitations Category: Medical Plan: Ordered CBC and TSH with reflex free T4, thyroid peroxidase antibody. Cardiology consult obtained (3) Osteopenia of multiple sites: Code(s): M85.89 - Other specified disorders of bone density and structure, multiple sites Category: Medical Plan: Discuss results of last bone density scan with patient which showed presence of osteopenia in left femoral neck and left femur, normal in AP spine, advised to do regular weight-bearing exercise, start taking [id number] vitamin D3 at 2000 units daily and take adequate calcium from dietary sources. Repeat another bone density scan next year (4) Mixed hyperlipidemia: Code(s): E78.2 - Mixed hyperlipidemia Category: Medical Plan: Fasting lipid panel ordered. Advised following a low-cholesterol diet and getting regular exercise (5) Vaccination refused by patient: Code(s): Z28.21 - Immunization not carried out because of patient refusal Category: Medical Plan: Patient refusing to get any adult recommended vaccinations (6) Impaired fasting glucose: Code(s): R73.01 - Impaired fasting glucose Category: Medical Plan: Your previous fasting blood sugars were elevated above 100 mg/dL. Impaired glucose metabolism increases the risk for developing diabetes mellitus type 2, as well as heart attack and stroke later on. Lifestyle changes that promotes weight loss, healthy eating habits, and regular exercise are important, and can prevent the progression to diabetes (7) Not ready to quit smoking: Code(s): Z72.0 - Tobacco use Category: Social Hx Plan: Patient strongly advised to stop smoking, as smoking damages blood vessels, degenerative of joints and spine, damage to lungs and heart., predisposes to developing certain cancers like lung, breast, bladder, colon. Recommended to try decreasing cigarette use by 1-2 cigarettes a day. Advised to monitor what triggers are for smoking so that this can be discussed on the next office visit. We can discuss different options to quit smoking when ready. Orders: Orders TSH reflex Free T4 05/01/24 E78.5 - Hyperlipidemia, unspecified, R00.2 - Palpitations Complete Blood Count Auto Diff 05/01/24 E78.5 - Hyperlipidemia, unspecified, R00.2 - Palpitations Thyroid Peroxidase Antibodies 05/01/24 E78.5 - Hyperlipidemia, unspecified, R00.2 - Palpitations Lipid Panel 05/01/24 E78.5 - Hyperlipidemia, unspecified, R00.2 - Palpitations Referrals Cardiology Referral R00.2 - Palpitations
== END 2024-05-01 10:14 | disposition home or self-care (01) ==
PROVIDERS: PCP Internal Medicine; Visit Provider Internal Medicine
DX: Z00.00 Encounter for general adult medical examination without abnormal findings (principal); R00.2 Palpitations; M85.89 Other specified disorders of bone density and structure, multiple sites; E78.2 Mixed hyperlipidemia; Z28.21 Immunization not carried out because of patient refusal; R73.01 Impaired fasting glucose; Z72.0 Tobacco use

== ENCOUNTER → 2024-05-01 08:57 | Outpatient (BNVA) | payer MEDICARE, MEDICAID, SELFPAY | PROVIDERS: PCP Internal Medicine; Visit Provider Internal Medicine | DX: Z00.01 Encounter for general adult medical examination with abnormal findings (principal); R00.2 Palpitations; M85.89 Other specified disorders of bone density and structure, multiple sites; E78.2 Mixed hyperlipidemia; R73.01 Impaired fasting glucose; Z72.0 Tobacco use; Z28.21 Immunization not carried out because of patient refusal | CPT/HCPCS: 96127; 99212; 99397 ==

== ENCOUNTER 2024-05-07 06:59 | Outpatient (REF) | payer MEDICARE, MEDICAID, SELFPAY ==
--- OUTSIDE RECORDS SUMMARY | 2024-05-07 07:01 | XMS_ITS | Encounter Summary ---
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 Name Role Phone Unavailable Primary Care Provider Unavailabl e Encounter Details Date Type Department Care Team (Latest Contact Info) Description 08/13/2020 Abstract [facility] CONVERSIONS Dental, Provider, DDS Social History Tobacco Use Types Packs/Day Years Used Date Smoking Tobacco: Never Assessed Comments Unknown Sex and Gender Information Value Date Recorded Sex Assigned at Female 02/06/2022 10:23 AM EDT Legal Sex Female 10:23 AM EDT Gender Identity Female 02/06/2022 10:23 AM EDT Sexual Orientation Choose not to disclose 2021 10:23 AM EDT documented as of this encounter Plan of Treatment Not on file documented as of this encounter Visit Diagnoses Not on filedocumented in this encounter
--- OUTSIDE RECORDS SUMMARY | 2024-05-07 07:01 | XMS_ITS | Clinical Summary ---
Author Organization [employer] Address [address] [place] [address] Care Team Providers Care Airplane First Officer Name Role Phone Unavailable Primary Care Provider Unavailabl e Social History Tobacco Use Types Packs/Day Years Used Date Smoking Tobacco: Never Assessed Comments Unknown Sex and Gender Information Value Date Recorded Sex Assigned at Female 02/06/2022 10:23 AM EDT Legal Sex Female 10:23 AM EDT Gender Identity Female 02/06/2022 10:23 AM EDT Sexual Orientation Choose not to disclose 2021 10:23 AM EDT Last Filed Vital Signs Vital Sign Reading Time Taken Comments Blood Pressure 140/90 12/16/2020 12:09 AM EDT Pulse - - Temperature - - Respiratory Rate - - Oxygen Saturation - - Inhaled Oxygen Concentration - - Weight - - Height - - Body Mass Index - - Plan of Treatment Health Maintenance Due Date Last Done Comments CT Colonography 1958 Colonoscopy 1958 Colorectal Cancer Screening 1958 Depression Screening 1958 FIT DNA/Cologuard 1958 FIT 1958 FOBT 1958 Sigmoidoscopy 1958 Alcohol/Substance Use Screening 1970 Tobacco Screening 1970 DTaP/Tdap/Td Vaccines (1 - Tdap) 1977 Pap Smear 07/27/1979 Cervical Cancer Screening 1988 HPV/Cotest 1988 Mammogram 1998 Zoster Vaccines (1 of 2) 2008 Pneumococcal Vaccine: 50+ Ye ars (1 of 1 - PCV) 07/27/2023 COVID-19 Vaccine ( - 2023-2 5 season) 2023 Influenza Vaccine (#1) 2023 RSV Patients and Pa tients Aged 60 years or older (1 - 1-dose 75+ series) 2033 HIB Vaccines Aged Out No longer eligi ble based on patient's age to complete this topic HPV Vaccines Aged Out No longer eligi ble based on patient's age to complete this topic Hepatitis A Vaccines Aged Out No long er eligible based on patient's age to complete this topic Hepatitis B Vaccines Aged Out No long er eligible based on patient's age to complete this topic IPV Vaccines Aged Out No longer eligi ble based on patient's age to complete this topic Meningococcal Vaccine Aged Out No robert luisa eligible based on patient's age to complete this topic RSV under 20 months Aged Out No longe r eligible based on patient's age to complete this topic Rotavirus Vaccines Aged Out No longer eligible based on patient's age to complete this topic
--- OUTSIDE RECORDS SUMMARY | 2024-05-07 07:01 | XMS_ITS | Clinical Summary ---
Author Organization 175 [facility] Address [address] [place] [address] Phone Care Team Providers Care Planer Offbearer Name Role Phone Jeniffer Colunga MD Primary Care Provider Allergies Active Allergy Reactions Criticality Noted Date Comments Penicillins 03/09/2009 Pcn [penicillins] Immunizations Name Administration Dates Next Due Hepatitis B (Kjtmfgh-O-Imrmv , Recombivax HB-Adult) 19yo and older 01/20/2002 MMR, measles mumps and rubel la Live (Priorix; M-M-R II) 12mo and older 01/20/2002 PPD Test 01/20/2002 Social History Tobacco Use Types Packs/Day Years Used Date Smoking Tobacco: Never Assessed Sex and Gender Information Value Date Recorded Sex Assigned at Not on file Gender Identity Not on file Sexual Orientation Not on file Plan of Treatment Upcoming Encounters Date Type Department Care Team ([facility] Contact Info) Description 05/14/2024 10:00 AM EST Consult Orthopedic Surgery - [place] [address] [phone] Yovani Fernandez DPM [address] [address] Health Maintenance Due Date Last Done Comments Breast Cancer Screening 1960 DTaP,Tdap,and Td Vaccines (1 - Tdap) 1977 Cervical Cancer Screening: P ap Smear 07/27/1979 Hepatitis B Vaccines (2 of 3 - 19+ 3-dose series) 02/17/2002 01/20/2002 Zoster Vaccines (1 of 2) 2008 Pneumococcal Vaccine: 65+ Ye ars (1 of 1 - PCV) 07/27/2023 COVID-19 Vaccine (2023-2 5 season) 2023 Influenza Vaccine (#1) 2023 Colorectal Cancer Screening: Colonoscopy 03/25/2024 Depression Screening 03/25/2024 Falls Risk Assessment 03/25/2024 Hepatitis C Screening 03/25/2024 Medicare Annual Wellness Visit 03/25/2024 Osteoporosis Screening (Bone Density Screening) 03/25/2024 Social Influencers of Health Screening 03/25/2024 RSV Immunization Patients 60 + Years Old (1 - 1-dose 75+ series) 2033 MMR Vaccines Aged Out 01/20/2002 No longer eligi ble based on patient's age to complete this topic HIB Vaccines Aged Out No longer eligi [...] patient's age to complete this topic Meningococcal ACWY Vaccine Aged Out N o longer eligible based on patient's age to complete this topic Pneumococcal Vaccine: Pediat rics (0 to 5 Years) and At-Risk Patients (6 to 64 Years) Aged Out No longer eligi ble based on patient's age to complete this topic RSV Immunization Patients Un varun 20 months Aged Out No longer eligible b ased on patient's age to complete this topic Varicella Vaccines Aged Out No longer eligible based on patient's age to complete this topic Care Teams Planer Offbearer Relationship Specialty Start Date End Date Jeniffer Colunga MD [address] [place] [address] PCP - General Internal Medicine 03/24/24
[2024-05-07 10:29] LABS: MANUAL DIFF FLAG NO
[2024-05-07 10:49] LABS: Basophils Percent Auto 0.3 % (0-2); Eosinophils Absolute Auto 0.2 X10*3/uL (0.0-0.4); Eosinophils Percent Auto 2.4 % (0-4); Hematocrit 44.1 % (37.0-47.0); Imm Gran Abs Auto 0.03 X10*3/uL (0.00-0.03); Imm Gran Pct Auto 0.3 % (0.0-0.4); Lymphocytes Absolute Auto 3.3 X10*3/uL (1.2-4.9); Lymphocytes Percent Auto 37.3 % (20-40); Mean Corpuscular Hemoglobin 32.5 pg (27.0-33.0); Mean Corpuscular Volume 95.5 fL (80.0-98.0); Mean Platelet Volume 10.8 fL (9.4-12.3); Monocytes Absolute Auto 0.5 X10*3/uL (0.1-1.2); Monocytes Percent Auto 6.1 % (2-11); Neutrophils Absolute Auto 4.8 x10*3/uL (2.0-8.3); Neutrophils Percent Auto 53.6 % (45-73); Platelet Count 254 X10*3/uL (160-400); Red Blood Count 4.62 X10*6/uL (4.20-5.50); Red Cell Distribution Width 13.5 % (11.0-16.0); White Blood Count 8.9 X10*3/uL (4.8-10.8)
[2024-05-07 11:09] LABS: Cholesterol 212 mg/dL (<200); HDL Cholesterol 53 mg/dL (>40); LDL Cholesterol Calculated 128 mg/dL (<100); Triglycerides 155 mg/dL (<150)
[2024-05-08 12:19] LABS: Thyroid Peroxidase Antibodies >900 IU/mL (<9)
[2024-05-09 09:10] LABS: Free T4 (Free Thyroxine) 0.88 ng/dL (0.71-1.85)
== END 2024-05-07 07:00 | disposition home or self-care (01) ==
LOC: HO.HMGCLDS 06:59
PROVIDERS: PCP Internal Medicine; Visit Provider Internal Medicine
DX: E78.5 Hyperlipidemia, unspecified (principal); R00.2 Palpitations
CPT/HCPCS: 36415; 80061; 84439; 84443; 85025; 86376

== ENCOUNTER 2024-05-12 10:42 | Outpatient (REF) | payer MEDICARE, MEDICAID, SELFPAY ==
--- OUTSIDE RECORDS SUMMARY | 2024-05-12 15:49 | XMS_ITS | Encounter Summary ---
Author Organization [employer] [facility] Address [address] [facility] 7t [place] [address] Care Team Providers Care International Broadcast Music Librarian Name Role Phone Unavailable Primary Care Provider Unavailabl e Encounter Details Date Type Department Care Team (Latest Contact Info) Description 08/13/2020 Abstract [facility] CONVERSIONS Dental, Provider, DDS Social History [...]
--- OUTSIDE RECORDS SUMMARY | 2024-05-12 15:49 | XMS_ITS | Clinical Summary ---
Author Organization [employer] Address [address] [facility] 7t [place] [address] Care Team Providers Care Family Resource Specialist Name Role Phone Unavailable Primary Care Provider [...]
--- OUTSIDE RECORDS SUMMARY | 2024-05-12 15:49 | XMS_ITS | Clinical Summary ---
Author Organization 175 [facility] Address [address] [place] [address] Phone Care Team Providers Care Decorating Inspector Name Role Phone Jeniffer Colunga MD Primary Care Provider Allergies Active Allergy Reactions Criticality Noted Date Comments Penicillins 03/09/2009 Pcn [penicillins] Immunizations Name Administration Dates Next Due Hepatitis B (Bklrcku-G-Ekhhy , Recombivax HB-Adult) 19yo and older 01/20/2002 [...] Upcoming Encounters Date Type Department Care Team ([facility] Contact Info) Description 05/14/2024 10:00 AM EST Consult Orthopedic Surgery - [place] [address] [phone] Yovani Fernandez DPM [address] [address] Health Maintenance Due Date Last Done Comments [...] age to complete this topic Care Teams Decorating Inspector Relationship Specialty Start Date End Date Jeniffer Colunga MD [address] [place] [address] PCP - General Internal Medicine 03/24/24
== END 2024-05-12 10:43 | disposition home or self-care (01) ==
LOC: HO.LNP 10:42
PROVIDERS: Visit Provider Physician Assistant
DX: Z13.89 Encounter for screening for other disorder (principal)
CPT/HCPCS: 87086

== ENCOUNTER 2024-05-12 10:42 | Outpatient (AMB) | payer MEDICARE, MEDICAID, SELFPAY ==
--- NOTE | 2024-05-12 10:52 | AM.OFFWIN_ITS ---
Intake Vital Signs 05/12/24 10:56 Weight 175 lb BP 140/90 H Blood Pressure Location Lt brachial Position Sitting Pulse 108 H Pulse Source Pulse Oximeter Temp 98.5 F Temp Source Oral Pulse Oximetry (%) 97 Oxygen Delivery Method Room Air Intake Visit Reasons: EP ? UTI Intake Note: Patient here for burning, frequency and pressure that started today. Patient Tobacco Use Status: Current everyday Tobacco user Allergies Penicillins [PENICILLINS] Allergy (Severe, Verified 05/12/24 10:57) RASH- very bad rash vancomycin Allergy (Verified 05/12/24 10:57) Itching Do you need a note to return to daycare/school/sports/work: No HPI HPI Comments History of Present Illness Details History of Present Illness - The patient is a 63-year-old female pr esenting with symptoms of recurrent urinary tract infections. - Previously treated for a urinary tract infection with urine culture grew out Escherichia coli on 03/18, with cefuroxime treatment resulting in resolution without corroborative culture growth during follow-up. - Came back with persistent symptoms on 04/03 but urine cx negative for bacteria. Treated with cefuroximine - Reports consistent symptoms of pain wi th urination and increased urinary frequency, without lower back pain or hematuria at present visit. - Patient reports intermittent Palpitati ons and an elevated heart rate with previous normal sinus rhythm and PCP sent referral for cardiac evaluation. - Had a referral to urology last year fo r repeated urinary symptoms, which was not pursued. - Noticed symptom correlation with post- coital episodes despite preventive measures, states she urinates after sex. Physical Exam General: Cooperative, healthy appearing, comfortable, no acute distress and well developed Orientation: Patient oriented x3 Limitations: No limitations Head: Normal to inspection Ears: Hearing grossly normal bilaterally Nose: Normal external nose present Face and sinus: normal facial exam Eyes: Appearance normal, both eyes and all related structures Neck: Normal visual inspection and Yes full ROM Respiratory: Normal respiratory effort and able to speak in complete sentences. Cardiovascular: Elevated heart rate at 108 bpm, regular rhythm. Normal S1 and S2 Skin: No rashes or lesions noted Neuro: Patient oriented x3 Extremities: Normal to inspection [facility] Medical History (Updated 05/04/24 @ 15:25 by Jeniffer Colunga MD) Intermittent palpitations Acquired deformity of toenail Lumbar spondylosis Osteopenia of multiple sites Mixed hyperlipidemia Acute anxiety Vaccination refused by patient Chronic low back pain Impaired fasting glucose Refused influenza vaccine Not ready to quit smoking Tubular adenoma of colon Internal bleeding hemorrhoids Encounter for general adult medical examination with abnormal findings Surgical History Status post total left knee replacement Hx of total knee arthroplasty Hx of tubal ligation Hx of colonoscopy Family History Father Myocardial infarction CVD (cardiovascular disease) Mother Depression Sister No problems noted. Maternal Grandmother No problems noted. Maternal Grandfather No problems noted. Paternal Grandfather No problems noted. Paternal Grandmother No problems noted. Son No problems noted. Son No problems noted. Other Substance use disorder Social History Household Members: Spouse Housing: House Are you a primary livestock caretaker to a significant other at home: No Do you presently have visiting nurse or other home services: No Alcohol intake: current Alcohol intake frequency: does not drink Alcohol type: beer and wine Patient Tobacco Use Status: Current everyday Tobacco user Tobacco use type: Cigarette Cigarette Packs Per Day: 0.5 Cigarettes Per Day: 10.0 Years Smoked: 40 e-Cigarette/Vaping Use: Never Used Second Hand Smoke Exposure: Yes service: No Current occupational status: disabled Current occupation: right handed Cognitive needs: No Hearing needs: No Vision needs: Yes Review of Systems Const All systems reviewed & are unremarkable except as noted in HPI and below Physical Exam Vital Signs: Last Vital Signs Temp 98.5 F 05/12/24 10:56 Pulse 118 H 05/12/24 10:56 BP 140/90 H 05/12/24 10:56 Pulse Ox 97 05/12/24 10:56 Oxygen Delivery Method Room Air 05/12/24 10:56 Results AMB Urinalysis, Automated UA Leukoctes 125 Carlos/uL Last Edit by TAL Michaels on 05/12/24 11: 02 UA Nitrite Negative Last Edit by TAL Michaels on 05/12/24 11:02 UA Urobilinogen 0.2 mg/dL Last Edit by TAL Michaels on 05/12/24 11:02 UA Protein 100 mg/dL Last Edit by TAL Michaels on 05/12/24 11:02 UA pH 6.0 Last Edit by TAL Michaels on 05/12/24 11:02 UA Blood 200 Cecil/uL Last Edit by TAL Michaels on 05/12/24 11:02 UA Specific [place] 1.030 Last Edit by TAL Michaels on 05/12/24 11:02 UA Ketone Negative Last Edit by Elaine Alan CCM on 05/12/24 11:02 UA Bilirubin 0 mg/dL Last Edit by TAL Michaels on 05/12/24 11:02 UA Glucose 0 mg/dL Last Edit by TAL Michaels on 05/12/24 11:02 Results Reviewed Results Reviewed: Laboratory Last Values Urine pH (Auto) 6.0 05/12/24 11:01 Specific [place] (Auto) 1.030 05/12/24 11:01 Urine Protein (Auto) 100 mg/dL 05/12/24 11:01 Glucose (UA)(Auto) 0 mg/dL 05/12/24 11:01 Urine Ketones (Auto) Negative 05/12/24 11:01 Urine Blood (Auto) 200 Cecil/uL 05/12/24 11:01 Urine Nitrite (Auto) Negative 05/12/24 11:01 Urine Bilirubin (Auto) 0 mg/dL 05/12/24 11:01 Urine Urobilinogen (Auto) 0.2 mg/dL 05/12/24 11:01 Leukocyte Esterase (Auto) 125 Carlos/uL 05/12/24 11:01 Assessment & Plan Assessment & Plan (1) UTI (urinary tract infection): Code(s): N39.0 - Urinary tract infection, site not specified Qualifiers: Urinary tract infection type: acute cystitis Hematuria presence: with hematuria Qualified Code(s): N30.01 - Acute cystitis with hematuria Plan: UA 2+ leuks, 3+ blood. For the recurrent urinary tract infections, cefuroxime will be administered BID for 7 days, with the ordering of a urine culture to confirm bacterial etiology. Messaged PCP for consultation with urology will explore further causes and management. Pharmacological arrangements for medication fulfillment has been completed. All consultations and referrals are being coordinated to ensure corrective and preventative measures are maximized. Patient was informed and verbally consented to the use of an ambient scribe for clinic note documentation during this visit. (2) Intermittent palpitations: Code(s): R00.2 - Palpitations Plan: The cardiology referral awaits for comprehensive assessment of palpitations noted with tachycardia. Rate is regular with auscultation and varied 108-118. All consultations and referrals are being coordinated to ensure corrective and preventative measures are maximized. Orders: Orders Urine Culture Today N39.0 - Urinary tract infection, site not specified AMB Urinalysis Automated Today Z13.9 - Encounter for screening, unspecified Medications: New cefuroxime axetil 500 mg PO Q12H 14 tabs 0RF Coding Level of Care Code Est Pt Level 4 (97096) Diagnoses Acute cystitis with hematuria N30.01 Urinary tract infection type: acute cystitis Hematuria presence: with hematuria Intermittent palpitations R00.2
[2024-05-12 10:56] VITALS: BP 140/90; PULSE 108; TEMP 36.9; O2SAT 97
--- OUTSIDE RECORDS SUMMARY | 2024-05-12 11:34 | XMS_ITS | Clinical Summary ---
Author Organization [employer] Address [address] [facility] [address] [place] [address] Care Team Providers Care Stretcher Leveler Operator Name Role Phone Unavailable Primary Care Provider [...] Cancer Screening 1988 HPV/Cotest 1988 Mammogram 1998 Pneumococcal Vaccine: 50+ Ye ars (1 of 1 - PCV) 2008 Zoster Vaccines (1 of 2) 2008 COVID-19 Vaccine (2023-2 5 season) 2023 Influenza [...]
--- OUTSIDE RECORDS SUMMARY | 2024-05-12 11:34 | XMS_ITS | Encounter Summary ---
Author Organization [id number] [facility] Address [address] [facility] 7t [place] [address] Care Team Providers Care Sand Caster Name Role Phone Unavailable Primary Care Provider Unavailabl e Encounter Details Date Type Department Care Team (Latest Contact Info) Description 08/13/[address] [facility] CONVERSIONS Dental, Provider, DDS Social History Tobacco [...]
--- OUTSIDE RECORDS SUMMARY | 2024-05-12 11:34 | XMS_ITS | Clinical Summary ---
Author Organization 175 [facility] Address [address] [place] [address] Phone Care Team Providers Care Container Finisher Name Role Phone Jeniffer Colunga MD Primary Care Provider Allergies Active Allergy Reactions Criticality Noted Date Comments Penicillins 03/09/2009 Pcn [penicillins] Immunizations Name Administration Dates Next Due Hepatitis B (Mhieswp-W-Otdyc , Recombivax HB-Adult) 19yo and older 01/20/2002 [...] Upcoming Encounters Date Type Department Care Team ([facility] Contact Info) Description 05/14/2024 10:00 AM EST Consult Orthopedic Surgery - [place] [address] [phone] Yovani Fernandez DPM [address] [address] Health Maintenance Due Date Last Done Comments [...] age to complete this topic Care Teams Container Finisher Relationship Specialty Start Date End Date Jeniffer Colunga MD [address] [place] [address] PCP - General Internal Medicine 03/24/24
== END 2024-05-12 11:56 | disposition home or self-care (01) ==
PROVIDERS: PCP Internal Medicine; Visit Provider Physician Assistant
DX: N30.01 Acute cystitis with hematuria (principal); R00.2 Palpitations; Z13.9 Encounter for screening, unspecified

== ENCOUNTER 2024-05-12 10:42 | Outpatient (REF) | payer MEDICARE, MEDICAID, SELFPAY ==
--- OUTSIDE RECORDS SUMMARY | 2024-05-12 12:35 | XMS_ITS | Clinical Summary ---
Author Organization [employer] Address [address] [facility] 7t [place] [address] Care Team Providers Care Ict Help Desk Technician Name Role Phone Unavailable Primary Care Provider [...]
--- OUTSIDE RECORDS SUMMARY | 2024-05-12 12:35 | XMS_ITS | Clinical Summary ---
Author Organization 175 [facility] Address [address] [place] [address] Phone Care Team Providers Care Bit Sander Name Role Phone Jeniffer Colunga MD Primary Care Provider [phone] Allergies Active Allergy Reactions Criticality Noted Date Comments Penicillins 03/09/2009 Pcn [penicillins] Immunizations Name Administration Dates Next Due Hepatitis B (Sgopuyv-Z-Vdamq , Recombivax HB-Adult) 19yo and older 01/20/2002 [...] Upcoming Encounters Date Type Department Care Team ([facility] Contact Info) Description 05/14/2024 10:00 AM EST Consult Orthopedic Surgery - [place] [address] [phone] Yovani Fernandez DPM [address] [address] Health Maintenance Due Date Last Done Comments [...] age to complete this topic Care Teams Bit Sander Relationship Specialty Start Date End Date Jeniffer Colunga MD [address] [place] [address] PCP - General Internal Medicine 03/24/24
--- OUTSIDE RECORDS SUMMARY | 2024-05-12 12:35 | XMS_ITS | Encounter Summary ---
Author Organization [employer] [facility] Address [address] [facility] 7t [place] [address] Care Team Providers Care Window Display Designer Name Role Phone Unavailable Primary Care Provider Unavailabl e Encounter Details Date Type Department Care Team (Latest Contact Info) Description 08/13/2020 Abstract [facility] CONVERSIONS Dental, Provider, DDS Social History [...]
== END 2024-05-12 10:43 | disposition home or self-care (01) ==
LOC: HO.LAB 10:42
PROVIDERS: PCP Internal Medicine; Visit Provider Physician Assistant
DX: N30.01 Acute cystitis with hematuria (principal); R00.2 Palpitations
CPT/HCPCS: 81003; 87086; 99212

== ENCOUNTER 2024-07-08 12:50 | Outpatient (AMB) | payer MEDICARE, MEDICAID, SELFPAY ==
--- NOTE | 2024-07-08 13:07 | MHC.OFFVIS ---
Intake Visit Reasons: frequent UTIs Intake Note: New patient presents today for initial visit for frequent UTI's Urology Medication:none Blood Thinner:none Antibiotic Allergies:Penicillin PVR:0ml Allergies Penicillins [PENICILLINS] Allergy (Severe, Verified 07/08/24 14:20) RASH- 1969' very bad rash vancomycin Allergy (Verified 07/08/24 14:20) Itching Medication List - Last Reconciled 07/08/24 by OSCAR Childs HPI Comments Details: Adele is a very pleasant 63-year-old female patient of Dr. Colunga. She has a past medical history of mixed hyperlipidemia, osteopenia, anxiety, chronic low-back pain, nicotine dependence and lumbar spondylosis. She presents to the office today as a new patient for recurrent urinary tract infections. In discussion with the patient today she reports having seeked multiple visits to urgent care services for UTI like symptoms she had been experiencing. She reports symptoms initially presented late last year. She reports noting urinary urgency, urinary frequency, and dysuria shortly after sexual intercourse. She discusses her new relationship as she had been abstinent for quite some time. She currently denies any UTI like symptoms. She reports last urinary tract infection was approximately 2 months ago. In review of patient's chart it appears patient with recent renal imaging 04/01 notes bilateral kidneys with no calculi, lesions, and or hydronephrosis. When asked she does report a history of constipation. We discussed at length potential causes of recurrent urinary tract infections as well as further treatment options for recurrent urinary tract infections and risks and benefits of these treatment options. In office urinalysis results reviewed with the patient today. PVR 0 mL. She otherwise offers no other issues or concerns at this time. [facility] Medical History Intermittent palpitations Acquired deformity of toenail Lumbar spondylosis Osteopenia of multiple sites Mixed hyperlipidemia Acute anxiety Vaccination refused by patient Chronic low back pain Impaired fasting glucose Refused influenza vaccine Not ready to quit smoking Tubular adenoma of colon Internal bleeding hemorrhoids Encounter for general adult medical examination with abnormal findings Surgical History Status post total left knee replacement Hx of total knee arthroplasty Hx of tubal ligation Hx of colonoscopy Family History Father Myocardial infarction CVD (cardiovascular disease) Mother Depression Sister No problems noted. Maternal Grandmother No problems noted. Maternal Grandfather No problems noted. Paternal Grandfather No problems noted. Paternal Grandmother No problems noted. Son No problems noted. Son No problems noted. Other Substance use disorder Social History Household Members: Spouse Housing: House Are you a primary rehab care assistant to a significant other at home: No Do you presently have visiting nurse or other home services: No Alcohol intake: current Alcohol intake frequency: does not drink Alcohol type: beer and wine Patient Tobacco Use Status: Current everyday Tobacco user Tobacco use type: Cigarette Cigarette Packs Per Day: 0.5 Cigarettes Per Day: 10.0 Years Smoked: 40 e-Cigarette/Vaping Use: Never Used Second Hand Smoke Exposure: Yes service: No Current occupational status: disabled Current occupation: right handed Cognitive needs: No Hearing needs: No Vision needs: Yes Review of Systems Const All systems reviewed & are unremarkable except as noted in HPI and below Physical Exam Const General: cooperative, healthy appearing, comfortable, no acute distress, well developed, alert and awake Orientation/consciousness: patient oriented x3 Limitations: no limitations HEENT Head: Yes normal to inspection, Yes normocephalic and Yes atraumatic Ears: hearing grossly normal bilaterally Eyes General: appearance normal, both eyes and all related structures Neck Neck: Yes normal visual inspection and Yes trachea midline Chest Chest palpation & inspection: normal inspection of the chest Resp Effort & Inspection: normal respiratory effort and able to speak in complete sentences Cardio Rate: regular rate GI Inspection: Yes normal to inspection General: Yes no CVA tenderness Back/Spine/Pelvis Back: no CVA tenderness Skin General skin exam: no rashes or lesions noted Neuro General: patient oriented x3 Extrem General: Yes normal to inspection Psych Appearance: grossly normal and well kempt Mental Status: mental status grossly normal Speech and movement: Normal speech and movement present and Clear speech present Affect: normal affect Attitude: cooperative Thought process: Normal thought process present Thought content: Normal thought content present Insight: Fair insight present (Psych) Judgement: Fair judgement present (Psych) Office Procedures Post Void Residual Post Residual Void Post Void Residual (PVR): 0 [id number] Void Residual by ultrasound Results AMB Urinalysis, Automated UA Leukoctes 0 Carlos/uL Last Edit by Michelle Hamm on 07/08/24 13:39 UA Nitrite Last Edit by Michelle Hamm on 07/08/24 13:39 UA Urobilinogen 0.2 mg/dL Last Edit by Michelle Hamm on 07/08/24 13:39 UA Protein 0 mg/dL Last Edit by Michelle Hamm on 07/08/24 13:39 UA pH 5.5 Last Edit by Michelle Hamm on 07/08/24 13:39 UA Blood 0 Cecil/uL Last Edit by Arturoe Noris on 07/08/24 13:39 UA Specific [place] 1.020 Last Edit by Marucci Sportsfransisco Hamm on 07/08/24 13:39 UA Ketone Last Edit by Michelle Hamm on 07/08/24 13:39 UA Bilirubin 0 mg/dL Last Edit by Michelle Hamm on 07/08/24 13:39 UA Glucose 0 mg/dL Last Edit by Michelle Hamm on 07/08/24 13:39 Results Reviewed Results Reviewed: Laboratory Last Values Urine pH (Auto) 5.5 07/08/24 13:32 Specific [place] (Auto) 1.020 07/08/24 13:32 Urine Protein (Auto) 0 mg/dL 07/08/24 13:32 Glucose (UA)(Auto) 0 mg/dL 07/08/24 13:32 Urine Blood (Auto) 0 Cecil/uL 07/08/24 13:32 Urine Bilirubin (Auto) 0 mg/dL 07/08/24 13:32 Urine Urobilinogen (Auto) 0.2 mg/dL 07/08/24 13:32 Leukocyte Esterase (Auto) 0 Carlos/uL 07/08/24 13:32 Date of Service: 03/17/24 Procedure(s): US abdomen complete FINDINGS: PANCREAS: Visualized portions are unremarkable. ABDOMINAL AORTA: The proximal, mid, and distal segments are normal in caliber. INFERIOR VENA CAVA: Visualized portions are normal. LIVER: The liver is normal in size. The liver contour is normal. Increased echogenicity of the liver parenchyma, this can be seen in the setting of hepatic steatosis or liver parenchymal disease. No focal hepatic lesion. There is no intrahepatic biliary duct dilatation seen. GALLBLADDER: The gallbladder is physiologically distended without evidence of stones, sludge, polyps, wall thickening or pericholecystic fluid. COMMON BILE DUCT: Normal in caliber measuring 0.4 cm in diameter. RIGHT KIDNEY: No hydronephrosis. No renal calculi or focal parenchymal lesions. The kidney measures 11.2 cm in maximum dimension. LEFT KIDNEY: No hydronephrosis. No renal calculi or focal parenchymal lesions. The kidney measures 11.0 cm in maximum dimension. SPLEEN: The spleen measures 9.9 cm in maximum dimension. FREE FLUID: None. IMPRESSION: No ultrasound explanation for patient's pain. No gallstone or gallbladder disease. Increased echogenicity of the liver parenchyma, this can be seen in the setting of hepatic steatosis or liver parenchymal disease. Assessment & Plan Assessment & Plan (1) Recurrent UTI: Code(s): N39.0 - Urinary tract infection, site not specified Category: Medical Plan In office urinalysis results reviewed with the patient today; as noted above. PVR 0 mL. We discussed at length potential causes of recurrent urinary tract infections as well as further treatment options and risks and benefits of these treatment options. Recent renal imaging results reviewed with the patient today; as noted above. Discussed UTI prevention with D mannose supplement, vitamin-C, increasing fluid intake, behavioral therapy with timed voiding, perineal hygiene and postcoital voiding, and management of constipation with stool softeners and increased fiber intake. Start Estrace cream as discussed and prescribed. We discussed potential near future in office cystoscopy if symptoms arise. Follow-up in 3 months with PVR; or sooner with any issues, concerns, and or questions Orders: Orders AMB Urinalysis Automated Today Z13.9 - Encounter for screening, unspecified AMB Post Void Residual by ultrasound Today Z13.9 - Encounter for screening, unspecified Medications: New estradiol 0.01%(0.1mg/gram) (Estrace) Apply to urethra daily x1 month and then apply to urethra 3 times per week thereafter 2 grams vaginal DAILY 90 days 42.5 grams 3RF Patient Instructions: The patient had an opportunity to ask questions regarding the treatment plan. All questions were answered. Physical exam, labs, and imaging were discussed and reviewed in detail. As well as risks, benefits, and discussion of treatment choices. No major barriers to understanding were identified. The patient expressed understanding and agreement with the above treatment plan. The patient was made aware they should contact our office by phone for worsening of their current condition, the appearance of new symptoms, or with any questions or concerns. Compliance is encouraged with any medications and follow up testing that is ordered. It is a privilege to be allowed the opportunity to participate in? your urological care.? Again, if you have any questions or concerns If you have any questions or concerns please do not hesitate to contact me. The office is [phone]. This note is constructed using voice recognition software. While every effort has been made to ensure accuracy physiotherapy assistant errors may have been included. Yours sincerely, JOSE LUIS Childs-BEATA Coding Level of Care Code New Pt Level 4 (83263) Diagnoses Recurrent UTI N39.0 CPT Codes Post Residual Void - PVR CPT Code: 32042-Xaox Void Residual by ultrasound ([id number])
--- OUTSIDE RECORDS SUMMARY | 2024-07-08 14:59 | XMS_ITS | Clinical Summary ---
Author Organization [employer] Address [address] [facility] [address] [place] [address] Care Team Providers Care Manager Consumer Name Role Phone Unavailable Primary Care Provider [...]
--- OUTSIDE RECORDS SUMMARY | 2024-07-08 14:59 | XMS_ITS | Encounter Summary ---
Author Organization [employer] [facility] Address [address] [facility] [address] [place] [address] Care Team Providers Care Hair Machine Operator Name Role Phone Unavailable Primary Care Provider Unavailabl e Encounter Details Date Type Department Care Team (Latest Contact Info) Description 08/13/2020 Abstract [facility] CONVERSIONS Dental, Provider, DDS Social History Tobacco [...]
--- OUTSIDE RECORDS SUMMARY | 2024-07-08 14:59 | XMS_ITS | Clinical Summary ---
Author Organization [address] [facility] Address [address] [place] [address] Phone Care Team Providers Care Crime Specialist Name Role Phone Jeniffer Colunga MD Primary Care Provider Allergies Active Allergy Reactions Criticality Noted Date Comments Penicillins 03/09/2009 Pcn [penicillins] Medications ciclopirox (PENLAC) 8 % solution Apply topically at bedtime. Apply over nail and surrounding skin. Apply daily over previous coat. After seven (7) days, may remove with alcohol and continue cycle. 6.6 mL 5 08/13/19 25 Active terbinafine (LamISIL) 250 mg tabletIndicatio ns:Dermatophyto sis, nail Take 1 tablet (250 mg total) by mouth 1 (one) time each day. 30 tablet 2 5 08/25/19 25 Active Encounters Date Type Department Care Team Description 05/26/2024 Telephone Orthopedic Surgery [facility] [address] [address] Tiera Erazo [place] 05/14/2024 10:00 AM EST Consult Orthopedic Surgery [facility] [address] [address] Yovani Fernandez DPM Pain in toes of both feet (Primary Dx); Dermatophytosis, nail from Last 3 Months Immunizations Name Administration Dates Next Due Hepatitis B (Vyzjntd-R-Rtmua , Recombivax HB-Adult) 19yo and older 01/20/2002 MMR, measles mumps and rubel la Live (Priorix; M-M-R II) 12mo and older 01/20/2002 PPD Test 01/20/2002 Social History Tobacco Use Types Packs/Day Years Used Date Smoking Tobacco: Never Assessed Comments Unknown Sex and Gender Information Value Date Recorded Sex Assigned at Not on file Legal Sex Female 7:51 AM EST Gender Identity Not on file Sexual Orientation Not on file Last Filed Vital Signs Vital Sign Reading Time Taken Comments Blood Pressure - - Pulse - - Temperature - - Respiratory Rate - - Oxygen Saturation - - Inhaled Oxygen Concentration - - Weight 78 kg (172 lb) 05/14/2024 10:11 AM EST Height - - Body Mass Index - - Plan of Treatment Health Maintenance Due Date Last Done Comments Breast Cancer Screening 1960 DTaP,Tdap,and Td Vaccines (1 - Tdap) 1977 Cervical Cancer Screening: P ap Smear 07/27/1979 Hepatitis B Vaccines (2 of 3 - 19+ 3-dose series) 02/17/2002 01/20/2002 Pneumococcal Vaccine: 50+ Years (1 of 1 - PCV) 2008 Zoster Vaccines (1 of 2) 2008 COVID-19 Vaccine (3 - 2023-2 5 season) 2023 01/11/2021, 11/20/2020 Influenza Vaccine (#1) 2023 Colorectal Cancer Screening: [...] patient's age to complete this topic Meningococcal B Vacine Aged Out No lo nger eligible based on patient's age to complete this topic Pneumococcal Vaccine: Pediatrics (0 to 5 Years) and At-Risk Patients (6 to 64 Years) Aged Out No longer eligible b ased on patient's age to complete this topic RSV Immunization Patients Under 20 months Aged Out No longer eligible b ased on patient's age to complete this topic Varicella Vaccines Aged Out No longer eligible based on patient's age to complete this topic Insurance MEDICARE MEDICAID - [place] Care Teams Crime Specialist Relationship Specialty Start Date End Date Jeniffer Colunga MD [address] [place] [address] PCP - General Internal Medicine 03/24/24
--- OUTSIDE RECORDS SUMMARY | 2024-07-08 14:59 | XMS_ITS | Patient Health Record ---
Author Organization [facility] Address [address] [place] [address] Care Team Providers Care Cork Pressing Machine Operator Name Role Phone Cristine FLYNN, Jeniffer Primary Care Provider Steve Lebron [phone] Allergies Allergen (clinical drug ingredient) Drug/Non Drug Allergy documented on EMR Reaction Allergy Type Onset Date Status vancomycin Vancomycin Rash Drug Allergy Activ e Penicillin Rash Drug Allergy Active Reason For Referral No Information Medications Medication SIG (Take, Route, Fr equency, Duration) Notes Start Date End Date Status LORazepam 0.5 MG TAKE 1 TABLET BY LORNE ONCE DAILY NEEDED FOR ANXIETY Oral for 10 Active Immunizations Vaccine Route Administration Date Status Comme nts Influenza Unknown 11/29/2021 Refused Social History Tobacco Use: Social History Observation Description Date Details (start date - stop date) Current Smoker NA - NA Tobacco Use/Smoking Question Answer Notes Patient is a current smoker How often do you smoke cigarettes? every day How many cigarettes a day do you smoke? 6-10 How soon after you wake up do you smoke your fir st cigarette? 6-30 minutes Are you interested in quitting? Not ready to ramandeep t Alcohol Screen Question Answer Notes Did you have a drink contain ing alcohol in the past year? Yes How often did you have a dri nk containing alcohol in the past year? 2 to 4 times a month (2 points) How many drinks did you have on a typical day when you were drinking in the past year? 1 or 2 drinks (0 point) How often did you have 6 or more drinks on one occasion in the past year? Never (0 point) Points 2 Interpretation Negative Section Notes: Smopker 1/2 ppd; no sig alco hol Smopker 1/2 ppd; no sig alco hol Problems Problem Type SNOMED Code ICD Code Onset Dates Problem Status W/U Status Risk Notes Problem [id number] Encounter for screening for malignant neoplasm of colon (Z12.11) Active confirmed Problem 460612953 History of adenomatous polyp of colon (Z86.010) Active confirmed Problem Preprocedural examination (993336166824267) Preprocedural examination (Z01.818) Active confirmed Problem History of polyp of colon (643864075) History of colon polyps (Z86.010) Active confirmed Problem 91601069 Irritable bowel syndrome, unspecified type (K58.9) Active confirmed Problem Diverticulosis of colon (599451014) Diverticulosis of colon (K57.30) Active confirmed Plan Of Treatment Future Test Test Name Order Date COLONOSCOPY 08/23/2016 COLONOSCOPY 11/29/2021 Insurance Providers Payer Name Payer Address Payer Phone Subscriber Number Group Number Insured Name Patient Relationship to Insured Coverage Start Date Coverage End Date MEDICARE OF [place] [address] [place] [address] [id number] BRIAN PETERS Self - patient is the insured Medical (General) History Medical History History ICD Code 03-08-2009 screening colonos copy--1 small tubular adenoma removed, diverticulosis, internal hemorrhoids, hyperplastic polyps Denies WA,DM,CVA,Lung disease,renal dise ase EGD in 02/2010----small hiat al hernia and mild gastritis--biopsies were negative for celiac disease, negative for H. pylori, and there was no evidence of any Bustamante's esophagus IBS with negative endoscopy and colonosc opy as above Colonoscopy in 10/2016 with only a small hyperplastic polyp removed Surgical History Surgery Date(Month/Year) Left knee surgery 03/2021
== END 2024-07-08 13:52 | disposition home or self-care (01) ==
LOC: HO.HUSH 12:50
PROVIDERS: PCP Internal Medicine; Visit Provider Nurse Practitioner Family
DX: Z13.9 Encounter for screening, unspecified (principal); N39.0 Urinary tract infection, site not specified
CPT/HCPCS: 99204

== ENCOUNTER → 2024-07-08 12:50 | Outpatient (BNVA) | payer MEDICARE, MEDICAID, SELFPAY | PROVIDERS: PCP Internal Medicine; Visit Provider Nurse Practitioner Family | DX: N39.0 Urinary tract infection, site not specified (principal) | CPT/HCPCS: 51798; 81003; 99202 ==

== ENCOUNTER 2024-08-04 10:51 | Outpatient (REF) | payer MEDICARE, MEDICAID, SELFPAY ==
[2024-08-04 12:53] LABS: TSH reflex Free T4 2.42 uIU/mL (0.32-4.0)
--- OUTSIDE RECORDS SUMMARY | 2024-08-04 13:57 | XMS_ITS | Encounter Summary ---
Author Organization [employer] [facility] Address [address] [facility] 7t [place] [address] Care Team Providers Care Medical Technicians Name Role Phone Unavailable Primary Care Provider Unavailabl e Encounter Details Date Type Department Care Team (Latest Contact Info) Description 08/13/2020 Abstract [facility] CONVERSIONS Dental, Provider, DDS Social [...]
--- OUTSIDE RECORDS SUMMARY | 2024-08-04 13:57 | XMS_ITS | Clinical Summary ---
Author Organization [facility] Address [address] [place] [address] Phone Care Team Providers Care Aircraft Launch And Recovery Technician Name Role Phone Jeniffer Colunga MD Primary [...] Care Team Description 05/26/2024 Telephone Orthopedic Surgery [facility] [address] [phone] Tiera Erazo [place] 05/14/2024 10:00 AM EST Consult Orthopedic Surgery [facility] [address] [address] Yovani Fernandez DPM Pain in toes of both feet (Primary Dx); Dermatophytosis, nail from Last 3 Months Immunizations Name Administration Dates Next Due Hepatitis B (Plgumba-W-Fxgtc , Recombivax HB-Adult) 19yo and older 01/20/2002 [...] Insurance MEDICARE MEDICAID - [place] Care Teams Aircraft Launch And Recovery Technician Relationship Specialty Start Date End Date Jeniffer Colunga MD [address] [place] [address] PCP - General Internal Medicine 03/24/24
--- OUTSIDE RECORDS SUMMARY | 2024-08-04 13:57 | XMS_ITS | Clinical Summary ---
Author Organization [employer] Address [address] [facility] 7t [place] [address] Care Team Providers Care Physician Obstetrician Name Role Phone Unavailable Primary Care Provider [...]
== END 2024-08-04 10:52 | disposition home or self-care (01) ==
LOC: HO.LAB 10:51
PROVIDERS: PCP Internal Medicine; Visit Provider Internal Medicine Cardiovascular Disease
DX: R00.2 Palpitations (principal); R06.02 Shortness of breath
CPT/HCPCS: 36415; 84443; 93005; 99202

== ENCOUNTER 2024-08-04 10:51 | Outpatient (AMB) | payer MEDICARE, MEDICAID, SELFPAY ==
--- NOTE | 2024-08-04 10:57 | A.OFFVIS_ITS ---
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 In August 2020 she was seen for perioperative cardiovascular risk assessment before knee surgery. At that time she also complained of palpitations and underwent Holter monitoring which was normal. She has saying the palpitations are more frequent and she gets 10 episodes daily. She is describing irregular heartbeat and racing of her heart. She also at times feels that the heart stops and then she feels a strong heartbeat (sound more like PVCs/PACs). No chest discomfort. No shortness of breath more than usual. Blood pressure is stable and normal. Her LDL cholesterol is elevated at 128. Total cholesterol 212, triglycerides 155 and HDL 53. Last TSH was 3.6. [facility] Medical History Intermittent palpitations Acquired deformity of toenail Lumbar spondylosis Osteopenia of multiple sites Mixed hyperlipidemia Acute anxiety Vaccination refused by patient Chronic low back pain Impaired fasting glucose Refused influenza vaccine Not ready to quit smoking Tubular adenoma of colon Internal bleeding hemorrhoids Encounter for general adult medical examination with abnormal findings Surgical History Status post total left knee replacement Hx of total knee arthroplasty Hx of tubal ligation Hx of colonoscopy Family History Father Myocardial infarction CVD (cardiovascular disease) Mother Depression Sister No problems noted. Maternal Grandmother No problems noted. Maternal Grandfather No problems noted. Paternal Grandfather No problems noted. Paternal Grandmother No problems noted. Son No problems noted. Son No problems noted. Other Substance use disorder Social History Household Members: Spouse Housing: House Are you a primary rn coronary care unit to a significant other at home: No Do you presently have visiting nurse or other home services: No Alcohol intake: current Alcohol intake frequency: does not drink Alcohol type: beer and wine Patient Tobacco Use Status: Current everyday Tobacco user Tobacco use type: Cigarette Cigarette Packs Per Day: 0.5 Cigarettes Per Day: 10.0 Years Smoked: 40 e-Cigarette/Vaping Use: Never Used Second Hand Smoke Exposure: Yes service: No Current occupational status: disabled Current occupation: right handed Cognitive needs: No Hearing needs: No Vision needs: Yes Review of Systems Const Denies chills, Denies fatigue, Denies fever(s), Denies frequent falls, Denies weakness, Denies weight gain and Denies weight loss ENT Denies dizziness Card Denies chest pain, Denies leg edema, Denies lightheadedness, Reports palpitations, Denies dyspnea, Denies dyspnea on exertion and Denies orthopnea Resp Denies cough, Denies dyspnea and Denies dyspnea on exertion GI Denies bloating and Denies change in bowel habits Musc Denies muscle weakness, Denies numbness and Reports tingling Neuro Denies dizziness, Denies frequent falls, Denies numbness, Reports tingling and Denies weakness Endo Denies fatigue and Reports palpitations Physical Exam Vital Signs: Last Vital Signs Pulse 82 08/04/24 11:00 BP 120/76 08/04/24 11:00 BMI result Body Mass Index 31.4 GENERAL APPEARANCE: in no acute distress, pleasant. NECK: no carotid bruit, no jugular venous distention. SKIN: no suspicious lesions, warm and dry. HEART: no murmurs, regular rate and rhythm. LUNGS: clear to auscultation bilaterally. ABDOMEN: soft, nontender. EXTREMITIES: no edema. PERIPHERAL PULSES: equal. NEUROLOGIC: No gross deficits, AAO X 3 Office Procedures EKG Details: Sinus rhythm 82 beats per minute, normal axis, QTC 436 milliseconds. [id number], Complete Assessment & Plan Assessment & Plan (1) Intermittent palpitations: Code(s): R00.2 - Palpitations Category: Medical (2) Mixed hyperlipidemia: Code(s): E78.2 - Mixed hyperlipidemia Category: Medical Plan Pleasant 64 year female who is here for palpitations. She is getting daily palpitations up to 10 episodes per day. She has never had dizziness or syncope with this. EKGs normal. Repeat TSH. Check echocardiogram to assess for any structural heart issues. Seven days Holter monitor. Follow up with us in 3 months. Thank you for allowing me to participate in the care of your patient. Please feel free to contact me if you have any questions. Orders: Orders CA echo transthorac w con Today R00.2 - Palpitations ECG 7 day holter monitor Today R00.2 - Palpitations TSH reflex Free T4 Today R00.2 - Palpitations Coding Level of Care Code New Pt Level 4 (68856) Diagnoses Intermittent palpitations R00.2 Mixed hyperlipidemia E78.2 CPT Codes EKG - CPT: 01522-[id number], Complete ([id number])
[2024-08-04 11:00] VITALS: BP 120/76; PULSE 82; BMI 31.4
--- OUTSIDE RECORDS SUMMARY | 2024-08-04 13:00 | XMS_ITS | Clinical Summary ---
Author Organization [employer] Address [address] [facility] [address] [place] [address] Care Team Providers Care Bead Builder Name Role Phone Unavailable Primary Care Provider [...]
--- OUTSIDE RECORDS SUMMARY | 2024-08-04 13:00 | XMS_ITS | Clinical Summary ---
Author Organization [facility] Address [address] [place] [address] Phone Care Team Providers Care Plastics Scientist Name Role Phone Jeniffer Colunga MD Primary [...] Care Team Description 05/26/2024 Telephone Orthopedic Surgery [facility] [address] [address] Tiera Erazo [place] 05/14/2024 10:00 AM EST Consult Orthopedic Surgery [facility] [address] [address] Yovani Fernandez DPM Pain in toes of both feet (Primary Dx); Dermatophytosis, nail from Last 3 Months Immunizations Name Administration Dates Next Due Hepatitis B (Rhfkmup-M-Yswjp , Recombivax HB-Adult) 19yo and older 01/20/2002 [...] DTaP,Tdap,and Td Vaccines (1 - Tdap) 1977 Hepatitis B Vaccines (2 of 3 - 19+ 3-dose series) 02/17/2002 01/20/2002 Pneumococcal Vaccine: 50+ Years (1 of 1 - PCV) 2008 Zoster Vaccines (1 of 2) 2008 COVID-19 Vaccine ( - 2023-2 5 season) 2023 01/11/2021, 11/20/2020 Colorectal Cancer Screening: Colonoscopy 03/25/2024 Depression Screening 03/25/2024 Falls Risk Assessment 03/25/2024 Hepatitis C Screening 03/25/2024 Medicare Annual Wellness Visit 03/25/2024 Osteoporosis Screening (Bone Density Screening) 03/25/2024 Social Influencers of Health Screening 03/25/2024 Influenza Vaccine (Season Ended) 2024 RSV Immunization Adult Patients (1 - 1-dose 75+ series) 2033 MMR [...] age to complete this topic Meningococcal B Vaccine Aged Out No l onger eligible based on patient's age to complete this topic RSV Immunization Patients Under 20 months Aged Out No longer eligible b ased on patient's age to complete this topic Varicella Vaccines Aged Out No longer eligible based on patient's age to complete this topic Insurance MEDICARE MEDICAID - [place] Care Teams Plastics Scientist Relationship Specialty Start Date End Date Jeniffer Colunga MD [address] [place] [address] PCP - General Internal Medicine 03/24/24
--- OUTSIDE RECORDS SUMMARY | 2024-08-04 13:00 | XMS_ITS | Encounter Summary ---
Author Organization [employer] [facility] Address [address] [facility] 7t [place] [address] Care Team Providers Care Molecular Geneticist Name Role Phone Unavailable Primary Care Provider Unavailabl e Encounter Details Date Type Department Care Team (Latest Contact Info) Description 08/13/2020 Abstract [facility] CONVERSIONS Dental, Provider, DDS Social History Tobacco [...]
== END 2024-08-04 11:27 | disposition home or self-care (01) ==
LOC: HO.HCS 10:52
PROVIDERS: PCP Internal Medicine; Visit Provider Internal Medicine Cardiovascular Disease
DX: R00.2 Palpitations (principal); E78.2 Mixed hyperlipidemia
CPT/HCPCS: 93010; 99204

== ENCOUNTER → 2024-09-10 07:57 | Outpatient (REF) | payer MEDICARE, MEDICAID, SELFPAY ==
--- NOTE | 2024-09-10 08:00 | CA_ITS ---
Transthoracic Echocardiogram Patient (Last, First, Middle): Adele Martinez, Gender: Female Date of : 1960 Age: 64 Procedure Date: 09/10/2024 Procedure Type: Transthoracic Echocardiogram Location: OP Height: 157.48 cm Weight: 78.47 kg BSA: 1.80 m2 Heart Rate: bpm BP: 118 / 76 mmHg Software Developer Mid Level: TO Referring MD: Siddharth Hernandes MD Kerrick Kleaner Operator: Siddharth Hernandes MD Symptoms: R00.2 - Palpitations Study Quality: Good ECG Rhythm: Sinus Conclusions: - Normal left ventricular size and systolic function. There is mildly increased left ventricular wall thickness. The visually estimated ejection fraction is between 60-65%. - The basal inferior segment is hypokinetic. - Normal right ventricular cavity size and systolic function. Findings Left Ventricle Normal left ventricular size and systolic function. There is mildly increased left ventricular wall thickness. The visually estimated ejection fraction is between 60-65%. There is evidence of regional wall motion abnormalities. Diastolic function is normal for age. Normal GLS -21%. Wall Motion Rest Echo Findings The basal inferior segment is hypokinetic. Right Ventricle Normal right ventricular cavity size and systolic function. Atria The left atrium is normal in size. The right atrium is normal in size. Aortic Valve Normal aortic valve structure and function. There is no aortic valve stenosis. There is no aortic valve regurgitation. Mitral Valve The mitral valve appears normal. There is no mitral valve regurgitation. There is no mitral valve stenosis. Pulmonic Valve The pulmonic valve is likely normal. Tricuspid Valve Normal tricuspid valve structure. There is no tricuspid valve regurgitation. Normal right atrial pressure. There is no evidence of pulmonary hypertension. Great Vessels All visible segments of the aorta are normal in size. Venous The inferior vena cava is normal in size and collapses greater than 50% with inspiration. Pericardium/Pleural There is no evidence of pericardial effusion. Prior Study Comparison Changes noted compared to prior study. Basal inferior wall appears hypokinetic. Measurements 2D Linear Measurements IVSd: 0.96 0.6-0.9/0.6-1.0 cm LVIDd: 3.86 3.9-5.3/4.2-5.9 cm LVIDd Index: 2.14 2.4-3.2/2.2-3.1 cm/m2 LVIDs: 2.53 2.0-3.6 cm LVPWd: 0.92 0.7-1.1 cm LA Diam: 3.00 2.7-3.8/3.0-4.0 cm LAIDs Index: 1.67 1.5-2.3 cm/m2 LV Mass: 137.39 67-162/88-224 g LV Mass Index: 76.33 43-95/49-115 g/m2 LVOT Diam: 2.00 3.0+(-)1.3 cm 2D Systolic Function EF 4C: 59.90 >55% EF 2C: 62.20 >55% EF BiP: 60.70 >55% Mitral Valve MV Pk E: 0.92 MV PK A: 0.72 MV Decel Time: 180.00 E/A: 1.30 E'Lateral: 7.40 E'Medial: 7.18 E/E' Med: 12.80 E/E' Lat: 12.40 PHT: 53.00 MVA PHT: 4.15 Decel [place]: 5.11 Aortic Valve AoV Pk Shaka: 1.21 AoV Mn Shaka: 0.84 AoV VTI: 0.31 AoV Pk Grad: 6.00 Aov Mn Grad: 3.00 ERIK Cont.VTI: 2.77 LVOT LVOT Pk Shaka: 1.23 LVOT Mn Shaka: 0.77 LVOT VTI: 0.28 LVOT Pk Grad: 6.00 LVOT Mn Grad: 3.00 LVOT Diam: 2.00 LVOT Area: 3.14 Diastolic Function MV Pk E: 0.92 MV Pk A: 0.72 E/A: 1.30 E'Medial: 7.18 E/E' Med: 12.80 E' Laterial: 7.40 E/E' Lat: 12.40 Right Ventricle TAPSE (mm): 21.00 TVS' Shaka: 10.00 Tricuspid Valve TR Pk Shaka: 2.00 TR Pk Grad: 16.00 RA Press: 3.00 RVSP: 19.00 Great Vessels Aorta Ao Asc: 3.20 2.1-3.4 cm Updated in Other Vendor System with Status of Final Siddharth Hernandes MD electronically signed on 09/10/2024 12:37:41 PM with status of Final
--- OUTSIDE RECORDS SUMMARY | 2024-09-10 08:01 | XMS_ITS | Patient Health Record ---
Author Organization [facility] Address [address] [place] [address] Care Team Providers Care Sales Office Coordinator Name Role Phone Cristine FLYNN, Jeniffer Primary Care Provider Steve Lebron [phone] Allergies Allergen (clinical drug ingredient) Drug/Non Drug [...] Problem Status W/U Status Risk Notes Problem 581013258 Encounter for screening for malignant neoplasm of colon (Z12.11) Active confirmed Problem 549508470 History of adenomatous polyp of colon (Z86.010) Active confirmed Problem Preprocedural examination (474601608582735) Preprocedural examination (Z01.818) Active confirmed Problem History of colon polyps (Z86.010) Active confirmed Problem 54230595 Irritable bowel syndrome, unspecified type (K58.9) Active confirmed Problem Diverticulosis of colon (140603128) Diverticulosis of colon (K57.30) Active confirmed Plan Of Treatment Future Test Test Name Order Date COLONOSCOPY 08/23/2016 COLONOSCOPY 11/29/2021 Insurance Providers Payer Name Payer Address Payer Phone Subscriber Number Group Number Insured Name Patient Relationship to Insured Coverage Start Date Coverage End Date MEDICARE OF [place] [address] [place] [address] [id number] BRIAN PETERS Self - patient is the insured Medical (General) History Medical History History ICD Code 03-08-2009 screening colonos copy--1 small tubular adenoma removed, diverticulosis, internal hemorrhoids, hyperplastic polyps Denies [place],DM,CVA,Lung disease,renal dise ase EGD in 02/2010----small hiat [...]
== END ==
LOC: HO.CARD 07:57
PROVIDERS: PCP Internal Medicine; Visit Provider Internal Medicine Cardiovascular Disease
DX: R00.2 Palpitations (principal)
CPT/HCPCS: 93242; 93306

== ENCOUNTER → 2024-09-10 08:00 | Outpatient (BNV) | payer MEDICARE, MEDICAID, SELFPAY | PROVIDERS: PCP Internal Medicine; Visit Provider Internal Medicine Cardiovascular Disease | DX: R93.1 Abnormal findings on diagnostic imaging of heart and coronary circulation (principal); R00.2 Palpitations | CPT/HCPCS: 93306; 93356 ==

== ENCOUNTER 2024-10-07 12:42 | Outpatient (AMB) | payer MEDICARE, MEDICAID, SELFPAY ==
--- NOTE | 2024-10-07 12:58 | A.OFFVIS_ITS ---
Intake Visit Reasons: 3m/PVR Intake Note: Patient presents today for follow up visit for frequent UTI's Urology Medication: Estrace Cream Blood Thinner: none Antibiotic Allergies:Penicillin PVR: 195ml's Brass Cutter Required: No Accompanied by: Self / Same As Patient Allergies Penicillins (PENICILLINS) Allergy (Severe, Verified 10/07/24 22:10) RASH- very bad rash vancomycin Allergy (Verified 10/07/24 22:10) Itching Medication List - Last Reconciled 10/07/24 by JOSE LUIS Childs-BEATA estradiol 0.01%(0.1mg/gram) (Estrace) 2 grams vaginal DAILY 90 days nitrofurantoin macrocrystal 50 mg PO BEDTIME 90 days HPI Comments Details: Adele is a very pleasant 64-year-old female patient of Dr. Colunga. She has a past medical history of mixed hyperlipidemia, osteopenia, anxiety, chronic low-back pain, nicotine dependence and lumbar spondylosis. She presents to the office today for follow-up. Of note, patient was seen approximately 3 months ago as a new patient for recurrent urinary tract infections at which time she was started on Estrace cream. In discussion with the patient today she reports having discontinued Estrace cream as prescribed as she did not find this helpful. She reports having UTI like symptoms on multiple occasions over the l ast 6-8 weeks and has been taking left over antibiotic she had at home. She currently denies any UTI like symptoms. In office urinalysis results reviewed with the patient today. PVR 195 mL. We did discuss incomplete bladder emptying and UTI like symptoms. We also discussed the importance of taking medications as prescribed. Previous abdominal ultrasound 04/01 notes bilateral kidneys with no calculi, lesions, and or hydronephrosis. When asked she does report a history of constipation. We discussed at length potential causes of recurrent urinary tract infections as well as further treatment options for recurrent urinary tract infections and risks and benefits of these treatment options. She reports feeling UTI like symptoms with sexual activity. We discussed postcoital antibiotic therapy. She otherwise offers no other issues or concerns at this time. COUNTS INCLUDE 234 BEDS AT THE [facility] Medical History Intermittent palpitations Acquired deformity of toenail Lumbar spondylosis Osteopenia of multiple sites Mixed hyperlipidemia Acute anxiety Vaccination refused by patient Chronic low back pain Impaired fasting glucose Refused influenza vaccine Not ready to quit smoking Tubular adenoma of colon Internal bleeding hemorrhoids Encounter for general adult medical examination with abnormal findings Surgical History Status post total left knee replacement Hx of total knee arthroplasty Hx of tubal ligation Hx of colonoscopy Family History Father Myocardial infarction CVD (cardiovascular disease) Mother Depression Sister No problems noted. Maternal Grandmother No problems noted. Maternal Grandfather No problems noted. Paternal Grandfather No problems noted. Paternal Grandmother No problems noted. Son No problems noted. Son No problems noted. Other Substance use disorder Social History Household Members: Spouse Housing: House Are you a primary managed care director to a significant other at home: No Do you presently have visiting nurse or other home services: No Alcohol intake: current Alcohol intake frequency: does not drink Alcohol type: beer and wine Patient Tobacco Use Status: Current everyday Tobacco user Tobacco use type: Cigarette Cigarette Packs Per Day: 0.5 Cigarettes Per Day: 10.0 Years Smoked: 40 e-Cigarette/Vaping Use: Never Used Second Hand Smoke Exposure: Yes service: No Current occupational status: disabled Current occupation: right handed Cognitive needs: No Hearing needs: No Vision needs: Yes Review of Systems Const All systems reviewed & are unremarkable except as noted in HPI and below Physical Exam Const General: cooperative, healthy appearing, comfortable, no acute distress, well developed, alert and awake Orientation/consciousness: patient oriented x3 Limitations: no limitations HEENT Head: Yes normal to inspection, Yes normocephalic and Yes atraumatic Ears: hearing grossly normal bilaterally Eyes General: appearance normal, both eyes and all related structures Neck Neck: Yes normal visual inspection and Yes trachea midline Chest Chest palpation & inspection: normal inspection of the chest Resp Effort & Inspection: normal respiratory effort and able to speak in complete sentences Cardio Rate: regular rate GI Inspection: Yes normal to inspection General: Yes no CVA tenderness Back/Spine/Pelvis Back: no CVA tenderness Skin General skin exam: no rashes or lesions noted Neuro General: patient oriented x3 Extrem General: Yes normal to inspection Psych Appearance: grossly normal and well kempt Mental Status: mental status grossly normal Speech and movement: Normal speech and movement present and Clear speech present Affect: normal affect Attitude: cooperative Thought process: Normal thought process present Thought content: Normal thought content present Insight: Fair insight present (Psych) Judgement: Fair judgement present (Psych) Office Procedures Post Void Residual Post Residual Void Post Void Residual (PVR): 195 44877-Iari Void Residual by ultrasound Results AMB Urinalysis, Automated UA Leukoctes 0 Carlos/uL Last Edit by Michelle Hamm [facility] on 10/07/24 13:12 UA Nitrite Last Edit by Michelle Hamm [facility] on 10/07/24 13:12 UA Urobilinogen 0.2 mg/dL Last Edit by Michelle Hamm [facility] on 10/07/24 13:1 2 UA Protein 0 mg/dL Last Edit by Michelle Hamm [facility] on 10/07/24 13:12 UA pH 6.0 Last Edit by Michelle Hamm [facility] on 10/07/24 13:12 UA Blood 0 Cecil/uL Last Edit by Michelle Hamm [facility] on 10/07/24 13:12 UA Specific [place] 1.010 Last Edit by Michelle Hamm [facility] on 10/07/24 13: 12 UA Ketone Last Edit by Michelle Hamm [facility] on 10/07/24 13:12 UA Bilirubin 0 mg/dL Last Edit by Michelle Hamm [facility] on 10/07/24 13:12 UA Glucose 0 mg/dL Last Edit by Michelle Hamm [facility] on 10/07/24 13:12 Results Reviewed Results Reviewed: Laboratory Last Values Urine pH (Auto) 6.0 10/07/24 13:11 Specific [place] (Auto) 1.010 10/07/24 13:11 Urine Protein (Auto) 0 mg/dL 10/07/24 13:11 Glucose (UA)(Auto) 0 mg/dL 10/07/24 13:11 Urine Blood (Auto) 0 Cecil/uL 10/07/24 13:11 Urine Bilirubin (Auto) 0 mg/dL 10/07/24 13:11 Urine Urobilinogen (Auto) 0.2 mg/dL 10/07/24 13:11 Leukocyte Esterase (Auto) 0 Carlos/uL 10/07/24 13:11 Assessment & Plan Assessment & Plan (1) Recurrent UTI: Code(s): N39.0 - Urinary tract infection, site not specified Category: Medical (2) Incomplete bladder emptying: Code(s): R33.9 - Retention of urine, unspecified Category: Medical Plan In office urinalysis results reviewed with the patient today; as noted above. PVR 195 mL. We discussed incomplete bladder emptying; we discussed further interventions and risks and benefits of these interventions. We discussed attempting to double void to assist with bladder emptying We discussed the importance of taking medications as prescribed. Restart Estrace cream as discussed and prescribed. Start prophylactic antibiotic therapy. We discussed the importance of calling the office with UTI like symptoms. Discussed UTI prevention with D mannose supplement, vitamin-C, increasing fluid intake, behavioral therapy with timed voiding, perineal hygiene and postcoital voiding, and management of constipation with stool softeners and increased fiber intake. Follow-up in 3-4 months with PVR; or sooner with any issues, concerns, and or questions. Orders: Orders AMB Urinalysis Automated Today Z13.9 - Encounter for screening, unspecified AMB Post Void Residual by ultrasound Today N39.0 - Urinary tract infection, site not specified Medications: New nitrofurantoin macrocrystal must administer with a meal/food 50 mg PO BEDTIME 90 caps 1RF 90 days N39.0 - Urinary tract infection, site not specified Refilled estradiol 0.01%(0.1mg/gram) (Estrace) Apply to urethra daily x1 month and then apply to urethra 3 times per week thereafter 2 grams vaginal DAILY 42.5 grams 3RF 90 days Patient Instructions: The patient had an opportunity to ask questions regarding the treatment plan. All questions were answered. Physical exam, labs, and imaging were discussed and reviewed in detail. As well as risks, benefits, and discussion of treatment choices. No major barriers to understanding were identified. The patient expressed understanding and agreement with the above treatment plan. The patient was made aware they should contact our office by phone for worsening of their current condition, the appearance of new symptoms, or with any questions or concerns. Compliance is encouraged with any medications and follow up testing that is ordered. It is a privilege to be allowed the opportunity to participate in? your urological care.? Again, if you have any questions or concerns If you have any questions or concerns please do not hesitate to contact me. The office is [phone]. This note is constructed using voice recognition software. While every effort has been made to ensure accuracy cook barbecue errors may have been included. Yours sincerely, OSCAR Childs Coding Level of Care Code Est Pt Level 4 (70639) Complex EM visit Add On G2211 Diagnoses Recurrent UTI N39.0 Incomplete bladder emptying R33.9 CPT Codes Post Residual Void - PVR CPT Code: 40562-Efrr Void Residual by ultrasound ([id number])
--- OUTSIDE RECORDS SUMMARY | 2024-10-07 13:34 | XMS_ITS | Encounter Summary ---
Author Organization [facility] Address [address] [place] [address] Care Team Providers Care Evaporator Repairer Name Role Phone Unavailable Primary Care Provider Unavailabl e Encounter Details Date Type Department Care Team (Latest Contact Info) Description 08/13/2020 Abstract [facility] CONVERSIONS Dental, Provider, DDS Social History [...]
--- OUTSIDE RECORDS SUMMARY | 2024-10-07 13:34 | XMS_ITS | Patient Health Record ---
Author Organization [facility] Address [address] [place] [address] Care Team Providers Care Screwdown Operator Name Role Phone Cristine FLYNN, Jeniffer Primary Care Provider Steve Lebron [phone] Allergies Allergen (clinical drug ingredient) Drug/Non Drug [...] Problem Status W/U Status Risk Notes Problem 545257672 Encounter for screening for malignant neoplasm of colon (Z12.11) Active confirmed Problem 778609542 History of adenomatous polyp of colon (Z86.010) Active confirmed Problem Preprocedural examination (671909858255593) Preprocedural examination (Z01.818) Active confirmed Problem History of polyp of colon (situation) (909995846) History of colon polyps (Z86.010) Active confirmed Problem 84182306 Irritable bowel syndrome, unspecified type (K58.9) Active confirmed Problem Diverticulosis of colon (573401386) Diverticulosis of colon (K57.30) Active confirmed Plan Of Treatment Future Test Test Name Order Date COLONOSCOPY 08/23/2016 COLONOSCOPY 11/29/2021 Insurance Providers Payer Name Payer Address Payer Phone Subscriber Number Group Number Insured Name Patient Relationship to Insured Coverage Start Date Coverage End Date MEDICARE OF [place] [address] [place] [id number] [phone] [id number] BRIAN PETERS Self - patient is the insured Medical (General) History Medical History History ICD Code 03-08-2009 screening colonos copy--1 small tubular adenoma removed, diverticulosis, internal hemorrhoids, hyperplastic polyps Denies [place],DM,CVA,Lung disease,renal dise ase EGD in 02/2010----small hiat [...]
--- OUTSIDE RECORDS SUMMARY | 2024-10-07 13:34 | XMS_ITS | Clinical Summary ---
Author Organization [address] [place] [address] Address [address] [place] [address] Phone Care Team Providers Care Certified Legal Secretary Specialist Name Role Phone Jeniffer Colunga MD Primary Care Provider [phone] Allergies Active Allergy Reactions Criticality Noted Date Comments Penicillins 03/09/2009 Pcn [penicillins] Immunizations Name Administration Dates Next Due Hepatitis B (Imsyhii-J-Bjfmb , Recombivax HB-Adult) 19yo and older 01/20/2002 [...] Insurance MEDICARE MEDICAID - [place] Care Teams Certified Legal Secretary Specialist Relationship Specialty Start Date End Date Jeniffer Colunga MD [address] [place] [address] PCP - General Internal Medicine 03/24/24
== END 2024-10-07 13:23 | disposition home or self-care (01) ==
LOC: HO.HUSH 12:43
PROVIDERS: PCP Internal Medicine; Visit Provider Nurse Practitioner Family
DX: N39.0 Urinary tract infection, site not specified (principal); R33.9 Retention of urine, unspecified; Z13.9 Encounter for screening, unspecified
CPT/HCPCS: 99214; G2211

== ENCOUNTER → 2024-10-07 12:42 | Outpatient (BNVA) | payer MEDICARE, SELFPAY | PROVIDERS: PCP Internal Medicine; Visit Provider Nurse Practitioner Family | DX: N39.0 Urinary tract infection, site not specified (principal); R39.9 Unspecified symptoms and signs involving the genitourinary system; Z13.9 Encounter for screening, unspecified | CPT/HCPCS: 51798; 81003; 99212 ==

== ENCOUNTER 2024-10-08 13:20 | Outpatient (AMB) | payer MEDICARE, SELFPAY ==
[2024-10-08 13:28] VITALS: BP 144/76; PULSE 80; TEMP 36.9; O2SAT 97; BMI 31.3
--- NOTE | 2024-10-08 13:28 | AM.OFFWIN_ITS ---
Intake Vital Signs 10/08/24 13:28 Height 5 ft 2 in Weight 171 lb BMI 31.3 BP 144/76 H Blood Pressure Location Lt brachial Position Sitting Pulse 80 Pulse Source Pulse Oximeter Temp 98.4 F Temp Source Oral Pulse Oximetry (%) 97 Oxygen Delivery Method Room Air Intake Visit Reasons: EP-rt side cheek face swollen Intake Note: presents with swollen lesion on right cheek, painful to touch, red border- present for a couple months. Also c/o left arm tingling from fingers up to elbow for a few months, denies injury. Patient Tobacco Use Status: Current everyday Tobacco user Allergies Penicillins (PENICILLINS) Allergy (Severe, Verified 10/08/24 13:31) RASH- 1969's very bad rash vancomycin Allergy (Verified 10/08/24 13:31) Itching Do you need a note to return to daycare/school/sports/work: No HPI HPI Comments History of Present Illness Details History of Present Illness - The patient is a 64-year-old female pr esenting with a skin nodule that has developed erythema and tenderness. - The nodule began as a flat, dry spot t wo months ago and has progressed to a hard, raised, red bump. - The nodule is tender but not itchy, wi th no discharge upon squeezing. - The patient has avoided further manipu lation due to concern about potential harm. - The nodule feels warm and appears to c ontain fluid. - She is afraid that it is cancer. - She denies fever, chills, discharge, b leeding, other lesions, or rashes. arm numbness - She has been having intermittent ascen ding numbness on the left arm for the past 4 months. - Feels like ants matching up the arm - She does not wake up with her hand num bness. - She has no associated pain to the wris t or shoulder. - She is right hand dominant. - She has no injury or repetitive motion s to the left upper extremity. - She has no hand or wrist pain. Physical Exam General: Cooperative, healthy appearing, comfortable, no acute distress and well developed Orientation: Patient oriented x3 Limitations: No limitations Neck: Normal visual inspection and full ROM Respiratory: Normal respiratory effort and able to speak in complete sentences. Clear to auscultation bilaterally. No w/r/r noted. Cardiovascular: Regular rate and rhythm. Normal S1 and S2. No m/r/g noted. Skin: Red, raised, hard, single, non-tender lesion noted on the right cheek under her eye with surrounding erythema; no rashes or other lesions noted Neuro: Patient oriented x3. Sensation is intact. Extremities: Normal to inspection. FROM of the left digits and wrist. No TTP of the hand or wrist. 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 Negative Tinel's and Phalen's on the left. Negative prayer test. Patient was informed and verbally consented to the use of an ambient scribe for clinic note documentation during this visit. [facility] Medical History Intermittent palpitations Acquired deformity of toenail Lumbar spondylosis Osteopenia of multiple sites Mixed hyperlipidemia Acute anxiety Vaccination refused by patient Chronic low back pain Impaired fasting glucose Refused influenza vaccine Not ready to quit smoking Tubular adenoma of colon Internal bleeding hemorrhoids Encounter for general adult medical examination with abnormal findings Surgical History Status post total left knee replacement Hx of total knee arthroplasty Hx of tubal ligation Hx of colonoscopy Family History Father Myocardial infarction CVD (cardiovascular disease) Mother Depression Sister No problems noted. Maternal Grandmother No problems noted. Maternal Grandfather No problems noted. Paternal Grandfather No problems noted. Paternal Grandmother No problems noted. Son No problems noted. Son No problems noted. Other Substance use disorder Social History Household Members: Spouse Housing: House Are you a primary resident care associate to a significant other at home: No Do you presently have visiting nurse or other home services: No Alcohol intake: current Alcohol intake frequency: does not drink Alcohol type: beer and wine Patient Tobacco Use Status: Current everyday Tobacco user Tobacco use type: Cigarette Cigarette Packs Per Day: 0.5 Cigarettes Per Day: 10.0 Years Smoked: 40 e-Cigarette/Vaping Use: Never Used Second Hand Smoke Exposure: Yes service: No Current occupational status: disabled Current occupation: right handed Cognitive needs: No Hearing needs: No Vision needs: Yes Review of Systems Const All systems reviewed & are unremarkable except as noted in HPI and below Physical Exam Vital Signs: Last Vital Signs Temp 98.4 F 10/08/24 13:28 Pulse 80 10/08/24 13:28 BP 144/76 H 10/08/24 13:28 Pulse Ox 97 10/08/24 13:28 Oxygen Delivery Method Room Air 10/08/24 13:28 BMI result Body Mass Index 31.3 Assessment & Plan Assessment & Plan (1) Lesion of face: Code(s): L98.9 - Disorder of the skin and subcutaneous tissue, unspecified Plan: Most likely keratosis pilaris vs acne vs cyst vs milia vs abscess Plan - Apply mupicirion cream to the area BID for 10 days - Consider referral to dermatology for further evaluation of the skin nodule. - Discuss potential for needle aspiration to assess fluid content if patient consents. (2) Arm numbness left: Code(s): R20.0 - Anesthesia of skin Plan: Most likely carpal tunnel vs radiculopathy vs neuropathy Plan - probably needs an EMG - offered a splint and she did not want one - NSAIDs as needed - needs a f/u with PCP Orders: Referrals Dermatology Referral L98.9 - Disorder of the skin and subcutaneous tissue, unspecified Coding Level of Care Code Est Pt Level 4 (25113) Diagnoses Lesion of face L98.9 Arm numbness left R20.0
--- OUTSIDE RECORDS SUMMARY | 2024-10-08 13:55 | XMS_ITS | Patient Health Record ---
Author Organization [facility] Address [address] [place] [address] Care Team Providers Care Re Examiner Name Role Phone Cristine FLYNN, Jeniffer Primary Care Provider Steve Lebron [phone] Allergies Allergen (clinical drug ingredient) Drug/Non Drug [...] Problem Status W/U Status Risk Notes Problem [id number] Encounter for screening for malignant neoplasm of colon (Z12.11) Active confirmed Problem 903967529 History of adenomatous polyp of colon (Z86.010) Active confirmed Problem Preprocedural examination (359575696175074) Preprocedural examination (Z01.818) Active confirmed Problem History of polyp of colon (situation) (456301496) History of colon polyps (Z86.010) Active confirmed Problem 95394456 Irritable bowel syndrome, unspecified type (K58.9) Active confirmed Problem Diverticulosis of colon (952461230) Diverticulosis of colon (K57.30) Active confirmed Plan Of Treatment Future Test Test Name Order Date COLONOSCOPY 08/23/2016 COLONOSCOPY 11/29/2021 Insurance Providers Payer Name Payer Address Payer Phone Subscriber Number Group Number Insured Name Patient Relationship to Insured Coverage Start Date Coverage End Date MEDICARE OF [place] [address] [place] [address] [id number] BRIAN PETERS Self - patient is the insured Medical (General) History Medical History History ICD Code 03-08-2009 screening colonos copy--1 small tubular adenoma removed, diverticulosis, internal hemorrhoids, hyperplastic polyps Denies [place],DM,CVA,Lung disease,renal dise ase EGD in 02/2010----small hiat [...]
--- OUTSIDE RECORDS SUMMARY | 2024-10-08 13:55 | XMS_ITS | Clinical Summary ---
Author Organization [address] [place] [address] [address] [place] [address] Phone Care Team Providers Care Archaeology Professor Name Role Phone Jeniffer Colunga MD Primary Care Provider Allergies Active Allergy Reactions Criticality Noted Date Comments Penicillins 03/09/2009 Pcn [penicillins] Immunizations Name Administration Dates Next Due Hepatitis B (Knzsrqy-R-Nxuxl , Recombivax HB-Adult) 19yo and older 01/20/2002 [...] Insurance MEDICARE MEDICAID - [place] Care Teams Archaeology Professor Relationship Specialty Start Date End Date Jeniffer Colunga MD [address] [place] [address] PCP - General Internal Medicine 03/24/24
--- OUTSIDE RECORDS SUMMARY | 2024-10-08 13:55 | XMS_ITS | Encounter Summary ---
Author Organization [employer] [facility] Address [address] [place] [address] Care Team Providers Care Trade Show Coordinator Name Role Phone Unavailable Primary Care Provider Unavailabl e Encounter Details Date Type Department Care Team (Latest Contact Info) Description 08/13/2020 Abstract [facility] CONVERSIONS Dental, Provider, DDS Social History [...]
== END 2024-10-08 14:15 | disposition home or self-care (01) ==
PROVIDERS: PCP Internal Medicine; Visit Provider Physician Assistant Medical
DX: L98.9 Disorder of the skin and subcutaneous tissue, unspecified (principal); R20.0 Anesthesia of skin

== ENCOUNTER → 2024-10-08 13:20 | Outpatient (BNVA) | payer MEDICARE, SELFPAY | PROVIDERS: PCP Internal Medicine; Visit Provider Physician Assistant Medical | DX: L98.9 Disorder of the skin and subcutaneous tissue, unspecified (principal); R20.0 Anesthesia of skin | CPT/HCPCS: 99212 ==

== ENCOUNTER 2024-11-26 12:56 | Outpatient (AMB) | payer MEDICARE, SELFPAY ==
--- NOTE | 2024-11-26 12:58 | A.OFFVIS_ITS ---
Vital Signs 11/26/24 13:02 Height 5 ft 2 in Weight 169 lb 5.04 oz BMI 31.0 BP 110/70 Blood Pressure Location Lt brachial Position Sitting Pulse 68 Pulse Source Pulse Oximeter Intake Visit Reasons: 3 mth fu /test results Intake Note: 3 mth f/up-testing Boat Oar Maker Required: No Accompanied by: Self / Same As Patient Allergies Penicillins (PENICILLINS) Allergy (Severe, Verified 10/08/24 13:31) RASH- 1969' very bad rash vancomycin Allergy (Verified 10/08/24 13:31) Itching Medication List - Last Reconciled 11/26/24 by Siddharth Hernandes MD estradiol 0.01%(0.1mg/gram) (Estrace) 2 grams vaginal DAILY 90 days nitrofurantoin macrocrystal 50 mg PO BEDTIME 90 days HPI Comments Details: [age] year female who is here for palpitations. In August 2020 she was seen for perioperative cardiovascular risk assessment before knee surgery. At that time she also complained of palpitations and underwent Holter monitoring which was normal. She has saying the palpitations are more frequent and she gets 10 episodes daily. She is describing irregular heartbeat and racing of her heart. She also at times feels that the heart stops and then she feels a strong heartbeat (sound more like PVCs/PACs). No chest discomfort. No shortness of breath more than usual. Blood pressure is stable and normal. Her LDL cholesterol is elevated at 128. Total cholesterol 212, triglycerides 155 and HDL 53. Last TSH was 3.6. 11/26/2024: She is here for follow-up. She had Holter monitoring done in September 2024. This was a 6 day Holter where underlying rhythm was sinus with a rare supraventricular ectopy and rare ventricular ectopy. She did not have any sustained tachyarrhythmia or any episodes of bradycardia. She is saying that she has more symptoms and has been getting almost daily symptoms at this point. She is describing a sensation that the heartbeat strongly which usually is seen with premature atrial complexes or PVCs. These last for few sec at a time. She is denying any chest discomfort shortness of breath. Her echocardiography has shown preserved LV function with basal inferior wall hypokinesis. [facility] Medical History (Reviewed 11/26/24 @ 13:03 by Malia Church [facility]) Intermittent palpitations Acquired deformity of toenail Lumbar spondylosis Osteopenia of multiple sites Mixed hyperlipidemia Acute anxiety Vaccination refused by patient Chronic low back pain Impaired fasting glucose Refused influenza vaccine Not ready to quit smoking Tubular adenoma of colon Internal bleeding hemorrhoids Encounter for general adult medical examination with abnormal findings Surgical History Status post total left knee replacement Hx of total knee arthroplasty Hx of tubal ligation Hx of colonoscopy Family History Father Myocardial infarction CVD (cardiovascular disease) Mother Depression Sister No problems noted. Maternal Grandmother No problems noted. Maternal Grandfather No problems noted. Paternal Grandfather No problems noted. Paternal Grandmother No problems noted. Son No problems noted. Son No problems noted. Other Substance use disorder Social History Household Members: Spouse Housing: House Are you a primary care worker to a significant other at home: No Do you presently have visiting nurse or other home services: No Alcohol intake: current Alcohol intake frequency: does not drink Alcohol type: beer and wine Patient Tobacco Use Status: Current everyday Tobacco user Tobacco use type: Cigarette Cigarette Packs Per Day: 0.5 Cigarettes Per Day: 10.0 Years Smoked: 40 e-Cigarette/Vaping Use: Never Used Second Hand Smoke Exposure: Yes service: No Current occupational status: disabled Current occupation: right handed Cognitive needs: No Hearing needs: No Vision needs: Yes Review of Systems Const Denies chills, Denies fatigue, Denies fever(s), Denies frequent falls, Denies weakness, Denies weight gain and Denies weight loss ENT Denies dizziness Card Denies chest pain, Denies leg edema, Denies lightheadedness, Reports p alpitations, Denies dyspnea and Denies dyspnea on exertion Resp Denies cough, Denies dyspnea and Denies dyspnea on exertion GI Denies hematochezia Musc Denies abnormal gait, Denies muscle weakness, Denies numbness, Denies radiating pain into limb and Denies tingling Neuro Denies abnormal gait, Denies dizziness, Denies frequent falls, Denies numbness, Denies tingling and Denies weakness Endo Denies fatigue and Reports palpitations Physical Exam Vital Signs: Last Vital Signs Pulse 68 11/26/24 13:02 BP 110/70 11/26/24 13:02 BMI result Body Mass Index 31.0 GENERAL APPEARANCE: in no acute distress, pleasant. NECK: no carotid bruit, no jugular venous distention. SKIN: no suspicious lesions, warm and dry. HEART: no murmurs, regular rate and rhythm. LUNGS: clear to auscultation bilaterally. ABDOMEN: soft, nontender. EXTREMITIES: no edema. PERIPHERAL PULSES: equal. NEUROLOGIC: No gross deficits, AAO X 3 Assessment & Plan Assessment & Plan (1) Palpitations with regular cardiac rhythm: Code(s): R00.2 - Palpitations Category: Medical (2) Abnormal echocardiogram: Code(s): R93.1 - Abnormal findings on diagnostic imaging of heart and coronary circulation Category: Medical Plan 64-year-old female here for follow-up. She was seen for palpitations and underwent echocardiography and Holter monitoring. Holter monitoring did not show any sustained arrhythmia. Rare supraventricular and ventricular ectopy was noted. She also had echocardiography which showed preserved LV function with basal inferior wall hypokinesis. She is denying any significant chest discomfort or shortness of breath. She is getting more palpitations and these happen after breakfast and randomly other times. Due to abnormality on the echocardiography I have advised her to do an exercise stress test. We will arrange a stress Mibi for her. She will be more vigilant about making observations about and relationship with food etc. intake to the palpitations. She will see us back in few months. Thank you for allowing me to participate in the care of your patient. Please feel free to contact me if you have any questions. Orders: Orders CA stress test Today R93.1 - Abnormal findings on diagnostic imaging of heart and coronary circulation NM cardiolite stress test Today R93.1 - Abnormal findings on diagnostic imaging of heart and coronary circulation Coding Level of Care Code Est Pt Level 4 (24296) Diagnoses Palpitations with regular cardiac rhythm R00.2 Abnormal echocardiogram R93.1
[2024-11-26 13:02] VITALS: BP 110/70; PULSE 68; BMI 31.0
--- OUTSIDE RECORDS SUMMARY | 2024-11-26 13:47 | XMS_ITS | Encounter Summary ---
Author Organization [facility] Address [address] [place] [address] Care Team Providers Care Java Programmer Analyst Name Role Phone Unavailable Primary Care Provider Unavailabl e Encounter Details Date Type Department Care Team (Latest Contact Info) Description 08/13/2020 Abstract [facility] CONVERSIONS Dental, Provider, DDS Social History [...]
--- OUTSIDE RECORDS SUMMARY | 2024-11-26 13:47 | XMS_ITS | Patient Health Record ---
Author Organization [facility] Address [address] [place] [address] Care Team Providers Care Sanitation Technician Name Role Phone Cristine FLYNN, Jeniffer Primary Care Provider Steve Lebron [phone] Allergies Allergen (clinical drug ingredient) Drug/Non Drug [...] Problem Status W/U Status Risk Notes Problem [id number] Encounter for screening for malignant neoplasm of colon (Z12.11) Active confirmed Problem 293837687 History of adenomatous polyp of colon (Z86.010) Active confirmed Problem Preprocedural examination (683304246585389) Preprocedural examination (Z01.818) Active confirmed Problem History of colon polyps (Z86.010) Active confirmed Problem 40919865 Irritable bowel syndrome, unspecified type (K58.9) Active confirmed Problem Diverticulosis of colon (537406300) Diverticulosis of colon (K57.30) Active confirmed Plan Of Treatment Future Test Test Name Order Date COLONOSCOPY 08/23/2016 COLONOSCOPY 11/29/2021 Insurance Providers Payer Name Payer Address Payer Phone Subscriber Number Group Number Insured Name Patient Relationship to Insured Coverage Start Date Coverage End Date MED[place]ARE OF [place] [address] [place] [address] [id number] BRIAN PETERS Self - patient is the insured Medical (General) History Medical History History ICD Code 03-08-2009 screening colonos copy--1 small tubular adenoma removed, diverticulosis, internal hemorrhoids, hyperplastic polyps Denies [place],DM,CVA,Lung disease,renal dise ase EGD in 02/2010----small hiat [...]
--- OUTSIDE RECORDS SUMMARY | 2024-11-26 13:47 | XMS_ITS | Clinical Summary ---
Author Organization [address] [place] [address] Address [address] [place] [address] Phone Care Team Providers Care Enrollment Specialist Name Role Phone Jeniffer Colunga MD Primary Care Provider Allergies Active Allergy Reactions Criticality Noted Date Comments Penicillins 03/09/2009 Pcn [penicillins] Immunizations Name Administration Dates Next Due Hepatitis B (Jlddjte-N-Itwgg , Recombivax HB-Adult) 19yo and older 01/20/2002 [...] 01/11/2021, 11/20/2020 Colorectal Cancer Screening: Colonoscopy 03/25/2024 Falls Risk Assessment 03/25/2024 Hepatitis C Screening 03/25/2024 Medicare Annual Wellness Visit 03/25/2024 Osteoporosis Screening (Bone Density Screening) 03/25/2024 Social Influencers of Health Screening 03/25/2024 Depression Screening 04/09/2024 Influenza Vaccine (#1) 2024 RSV Immunization Adult Patients (1 - [...] Insurance MEDICARE MEDICAID - [place] Care Teams Enrollment Specialist Relationship Specialty Start Date End Date Jeniffer Colunga MD [address] [place] [address] PCP - General Internal Medicine 03/24/24
== END 2024-11-26 13:31 | disposition home or self-care (01) ==
LOC: HO.HCS 12:57
PROVIDERS: PCP Internal Medicine; Visit Provider Internal Medicine Cardiovascular Disease
DX: R00.2 Palpitations (principal); R93.1 Abnormal findings on diagnostic imaging of heart and coronary circulation
CPT/HCPCS: 99214

== ENCOUNTER → 2024-11-26 12:56 | Outpatient (BNVA) | payer MEDICARE, SELFPAY | PROVIDERS: PCP Internal Medicine; Visit Provider Internal Medicine Cardiovascular Disease | DX: R00.2 Palpitations (principal); R93.1 Abnormal findings on diagnostic imaging of heart and coronary circulation | CPT/HCPCS: 99212 ==

== ENCOUNTER 2025-01-07 13:42 | Outpatient (AMB) | payer MEDICARE, MEDICAID, SELFPAY ==
--- NOTE | 2025-01-07 13:55 | A.OFFVIS_ITS ---
Intake Visit Reasons: 3m follow up/ PVR Intake Note: patient presents today for: 3m follow up/PVR urology medications: estradiol blood thinners: none today's PVR: 34mls Clinical Law Professor Required: No Accompanied by: Self / Same As Patient Allergies Penicillins (PENICILLINS) Allergy (Severe, Verified 01/07/25 15:05) RASH- very bad rash vancomycin Allergy (Verified 01/07/25 15:05) Itching Medication List - Last Reconciled 01/07/25 by OSCAR Childs estradiol 0.01%(0.1mg/gram) (Estrace) 2 grams vaginal DAILY 90 days nitrofurantoin macrocrystal 50 mg PO BEDTIME 90 days HPI Comments Details: Adele is a very pleasant 64-year-old female patient of Dr. Colunga. She has a past medical history of mixed hyperlipidemia, osteopenia, anxiety, chronic low-back pain, nicotine dependence and lumbar spondylosis. She presents to the office today for follow-up. In discussion with the patient today she reports to be doing and feeling well. She denies having had any UTI like symptoms and or urinary tract infections since her last office visit here. She reports compliance with Estrace cream as prescribed. Patient was also given a prescription for postcoital antibiotic therapy however has not been sexually active as she is not in a relationship. In office urinalysis results reviewed with the patient today. PVR 34 mL. Previous abdominal ultrasound 04/01 notes bilateral kidneys with no calculi, lesions, and or hydronephrosis. When asked she does report a history of constipation. We discussed at length potential causes of recurrent urinary tract infections as well as further treatment options for recurrent urinary tract infections and risks and benefits of these treatment options. She currently denies urinary urgency, urinary frequency, incontinence, nocturia, hematuria, dysuria, foul smelling urine, changes to urinary stream, flank pain, fever, and or chills. She is happy with her current voiding parameters. She otherwise offers no other issues or concerns at this time. [facility] Medical History Intermittent palpitations Acquired deformity of toenail Lumbar spondylosis Osteopenia of multiple sites Mixed hyperlipidemia Acute anxiety Vaccination refused by patient Chronic low back pain Impaired fasting glucose Refused influenza vaccine Not ready to quit smoking Tubular adenoma of colon Internal bleeding hemorrhoids Encounter for general adult medical examination with abnormal findings Surgical History Status post total left knee replacement Hx of total knee arthroplasty Hx of tubal ligation Hx of colonoscopy Family History Father Myocardial infarction CVD (cardiovascular disease) Mother Depression Sister No problems noted. Maternal Grandmother No problems noted. Maternal Grandfather No problems noted. Paternal Grandfather No problems noted. Paternal Grandmother No problems noted. Son No problems noted. Son No problems noted. Other Substance use disorder Social History Household Members: Spouse Housing: House Are you a primary patient care specialist to a significant other at home: No Do you presently have visiting nurse or other home services: No Alcohol intake: current Alcohol intake frequency: does not drink Alcohol type: beer and wine Patient Tobacco Use Status: Current everyday Tobacco user Tobacco use type: Cigarette Cigarette Packs Per Day: 0.5 Cigarettes Per Day: 10.0 Years Smoked: 40 e-Cigarette/Vaping Use: Never Used Second Hand Smoke Exposure: Yes service: No Current occupational status: disabled Current occupation: right handed Cognitive needs: No Hearing needs: No Vision needs: Yes Review of Systems Const All systems reviewed & are unremarkable except as noted in HPI and below Physical Exam Const General: cooperative, healthy appearing, comfortable, no acute distress, well developed, alert and awake Orientation/consciousness: patient oriented x3 Limitations: no limitations HEENT Head: Yes normal to inspection, Yes normocephalic and Yes atraumatic Ears: hearing grossly normal bilaterally Eyes General: appearance normal, both eyes and all related structures Neck Neck: Yes normal visual inspection and Yes trachea midline Chest Chest palpation & inspection: normal inspection of the chest Resp Effort & Inspection: normal respiratory effort and able to speak in complete sentences Cardio Rate: regular rate GI Inspection: Yes normal to inspection General: Yes no CVA tenderness Back/Spine/Pelvis Back: no CVA tenderness Skin General skin exam: no rashes or lesions noted Neuro General: patient oriented x3 Extrem General: Yes normal to inspection Psych Appearance: grossly normal and well kempt Mental Status: mental status grossly normal Speech and movement: Normal speech and movement present and Clear speech present Affect: normal affect Attitude: cooperative Thought process: Normal thought process present Thought content: Normal thought content present Insight: Fair insight present (Psych) Judgement: Fair judgement present (Psych) Office Procedures Post Void Residual Post Residual Void Post Void Residual (PVR): 34 [id number] Void Residual by ultrasound Results AMB Urinalysis, Automated UA Leukoctes 0 Carlos/uL Last Edit by TAL Ruiz on 01/07/25 14:08 UA Nitrite Last Edit by TAL Ruiz on 01/07/25 14:08 UA Urobilinogen 0.2 mg/dL Last Edit by TAL Ruiz on 01/07/25 14:0 8 UA Protein 0 mg/dL Last Edit by TAL Ruiz on 01/07/25 14:08 UA pH 5.5 Last Edit by TAL Ruiz on 01/07/25 14:08 UA Blood 0 Cecil/uL Last Edit by TAL Ruiz on 01/07/25 14:08 UA Specific [place] 1.020 Last Edit by TAL Ruiz on 01/07/25 14: 08 UA Ketone Last Edit by TAL Ruiz on 01/07/25 14:08 UA Bilirubin 0 mg/dL Last Edit by TAL Ruiz on 01/07/25 14:08 UA Glucose 0 mg/dL Last Edit by TAL Ruiz on 01/07/25 14:08 Results Reviewed Results Reviewed: Laboratory Last Values Urine pH (Auto) 5.5 01/07/25 14:07 Specific [place] (Auto) 1.020 01/07/25 14:07 Urine Protein (Auto) 0 mg/dL 01/07/25 14:07 Glucose (UA)(Auto) 0 mg/dL 01/07/25 14:07 Urine Blood (Auto) 0 Cecil/uL 01/07/25 14:07 Urine Bilirubin (Auto) 0 mg/dL 01/07/25 14:07 Urine Urobilinogen (Auto) 0.2 mg/dL 01/07/25 14:07 Leukocyte Esterase (Auto) 0 Carlos/uL 01/07/25 14:07 Assessment & Plan Assessment & Plan (1) Incomplete bladder emptying: Code(s): R33.9 - Retention of urine, unspecified Category: Medical (2) Recurrent UTI: Code(s): N39.0 - Urinary tract infection, site not specified Category: Medical Plan In office urinalysis results reviewed with the patient today; as noted above. PVR 34 mL. She currently denies any bothersome urinary issues or concerns. She reports be happy with current voiding parameters. Will continue with Estrace cream as discussed and prescribed. Will continue with surveillance monitoring. Discussed UTI prevention with D mannose supplement, vitamin-C, increasing fluid intake, behavioral therapy with timed voiding, perineal hygiene and postcoital voiding, and management of constipation with stool softeners and increased fiber intake. Follow-up in 6 months with PVR; or sooner with any issues, concerns, and or questions. Orders: Orders AMB Urinalysis Automated Today Z13.9 - Encounter for screening, unspecified AMB Post Void Residual by ultrasound Today R33.9 - Retention of urine, unspecified Patient Instructions: The patient had an opportunity to ask questions regarding the treatment plan. All questions were answered. Physical exam, labs, and imaging were discussed and reviewed in detail. As well as risks, benefits, and discussion of treatment choices. No major barriers to understanding were identified. The patient expressed understanding and agreement with the above treatment plan. The patient was made aware they should contact our office by phone for worsening of their current condition, the appearance of new symptoms, or with any questions or concerns. Compliance is encouraged with any medications and follow up testing that is ordered. It is a privilege to be allowed the opportunity to participate in? your urological care.? Again, if you have any questions or concerns If you have any questions or concerns please do not hesitate to contact me. The office is [phone]. This note is constructed using voice recognition software. While every effort has been made to ensure accuracy executive kitchen manager errors may have been included. Yours sincerely, OSCAR Childs Coding Level of Care Code Est Pt Level 3 (70216) Complex EM visit Add On G2211 Diagnoses Incomplete bladder emptying R33.9 Recurrent UTI N39.0 CPT Codes Post Residual Void - PVR CPT Code: 60982-Gecg Void Residual by ultrasound ([id number])
--- OUTSIDE RECORDS SUMMARY | 2025-01-07 14:59 | XMS_ITS | Clinical Summary ---
Author Organization [employer] Address [address] [place] [address] [address] [place] [address] Care Team Providers Care Resident Assistant Name Role Phone Unavailable Primary Care Provider [...] 1970 DTaP/Tdap/Td Vaccines (1 - Tdap) 1977 Mammogram 1998 Pneumococcal Vaccine: 50+ Ye ars (1 of 1 - PCV) 2008 Zoster Vaccines (1 of 2) 2008 COVID-19 Vaccine ( - 2023-2 5 season) 2024 Influenza Vaccine (#1) 2024 RSV Patients and Pa tients Aged 60 [...]
--- OUTSIDE RECORDS SUMMARY | 2025-01-07 14:59 | XMS_ITS | Clinical Summary ---
Author Organization [address] [place] [address] Address [address] [place] [address] Phone Care Team Providers Care Calender Wind Up Helper Name Role Phone Jeniffer Colunga MD Primary Care Provider Allergies Active Allergy Reactions Criticality Noted Date Comments Penicillins 03/09/2009 Pcn [penicillins] Immunizations Immunization Administration Dates Next Due Hepatitis B (Psshopv-O-Dmira , Recombivax HB-Adult) 19yo and older 01/20/2002 [...] Last Done Comments Breast Cancer Screening 1958 Colorectal Cancer Screening: Colonoscopy 1958 DTaP,Tdap,and Td Vaccines (1 - Tdap) 1977 Hepatitis B Vaccines (2 of 3 - 19+ 3-dose series) 02/17/2002 01/20/2002 Pneumococcal Vaccine: 50+ Years (1 of 1 - PCV) 2008 Zoster Vaccines (1 of 2) 2008 Falls Risk Assessment 03/25/2024 Hepatitis C Screening 03/25/2024 Medicare Annual Wellness Visit 03/25/2024 Osteoporosis Screening (Bone Density Screening) 03/25/2024 Social Influencers of Health Screening 03/25/2024 Depression Screening 04/09/2024 COVID-19 Vaccine (3 - 2024-2 6 season) 2024 01/11/2021, 11/20/2020 Influenza Vaccine (#1) 2024 RSV Immunization Adult [...] Insurance MEDICARE MEDICAID - [place] Care Teams Calender Wind Up Helper Relationship Specialty Start Date End Date Jeniffer Colunga MD [address] [place] [address] PCP - General Internal Medicine 03/24/24
--- OUTSIDE RECORDS SUMMARY | 2025-01-07 14:59 | XMS_ITS | Encounter Summary ---
Author Organization [facility] Address [address] [place] [address] Care Team Providers Care Deckhand Fishing Vessel Name Role Phone Unavailable Primary Care Provider Unavailabl e Encounter Details Date Type Department Care Team (Latest Contact Info) Description 08/13/2020 Abstract [facility] CONVERSIONS Dental, Provider, DDS Social History [...]
== END 2025-01-07 14:34 | disposition home or self-care (01) ==
LOC: HO.HUSH 13:44
PROVIDERS: PCP Internal Medicine; Visit Provider Nurse Practitioner Family
DX: R33.9 Retention of urine, unspecified (principal); N39.0 Urinary tract infection, site not specified; Z13.9 Encounter for screening, unspecified
CPT/HCPCS: 99213; G2211

== ENCOUNTER → 2025-01-07 13:42 | Outpatient (BNVA) | payer MEDICARE, MEDICAID, SELFPAY | PROVIDERS: PCP Internal Medicine; Visit Provider Nurse Practitioner Family | DX: R33.9 Retention of urine, unspecified (principal); N39.0 Urinary tract infection, site not specified | CPT/HCPCS: 51798; 81003; 99212 ==

== ENCOUNTER → 2025-01-12 08:14 | Outpatient (REF) | payer MEDICARE, MEDICAID, SELFPAY ==
--- NOTE | ~2025-01-12 | NM_ITS ---
EXERCISE MYOCARDIAL PERFUSION STUDY INDICATION: Abnormal cardiac imaging to evaluate for myocardial ischemia TECHNIQUE: The patient was brought in for an exercise perfusion study on 01/12/2025. Patient performed exercise as per Jose Miguel protocol and was injected 25 mCi of sestamibi once target heart rate was achieved. Images were obtained using the SPECT gamma camera interlaced with the gating device. Images were obtained in supine position. Resting perfusion study was performed on 01/13/2025. Patient was administered 25 mCi of sestamibi intravenously at rest. Images were then obtained in supine position. Images obtained without without CT attenuation. Total DLP 85 mGy-cm. Images were processed with the software and compared side to side in short axis, horizontal long axis and vertical long axis views. FINDINGS: Raw images were reviewed The stress perfusion study showed nonattenuated images show thinning of the distal lateral wall of the LV myocardium otherwise normal uptake of radiotracer in all segments of the LV myocardium. Attenuated corrected images show minimal thinning of the apex of the LV myocardium. The gated study shows normal LV systolic function with calculated LVEF of 70%. LV cavity is normal in size. The gated study shows normal systolic wall thickening and contraction of segments. Resting study shows nonattenuated images show normal uptake ordered images in all segments of the LV myocardium. Attenuated corrected images show mildly reduced uptake in the apex of the LV myocardium.. Gating at rest reveals normal systolic wall motion with ejection fraction at 69%. The findings are consistent with likely normal myocardial perfusion. NM/NM cardiolite stress test IMPRESSION: 1. Myocardial perfusion imaging study shows [likely normal myocardial perfusion. 2. Gated LVEF is 70%. 3. Transient ischemic dilatation not present. EKG revealed negative for ischemia. Electronically signed by: Ivan Garcia MD 01/14/2025 03:40 PM EDT
--- NOTE | 2025-01-12 08:17 | CA_ITS ---
Acquisition Time: 2025-01-12 08:46:59 Total Exercise Time: 00:07:20 Test Indications: ABN ECHO,Palpitations Medications: ESTRADIOL NITROFURANTOIN Protocol: COCO Max HR: 136 BPM 88% of Pred: 154 BPM Max BP: 194/84 mmHG Max Work Load: 7.5 METS Exercise stress test with exercise 7 min 20 sec of Coco protocol ( speed held in stage 2 and incline increased to 14% at 6 min), achieving 88% MPHR, with mild shortness of breath, with isolated PVC, with normotensive, response to exercise, without EKG changes meeting criteria for ischemia. Nuclear images pending. Test reviewed with Dr Garcia Referred By: Siddharth Hernandes Electronically Signed By: SUNNI ALONSO
--- OUTSIDE RECORDS SUMMARY | 2025-01-12 08:31 | XMS_ITS | Patient Health Record ---
Author Organization [facility] Address [address] [place] [address] Care Team Providers Care Picker And Sorter Load And Unload Name Role Phone Cristine FLYNN, Jeniffer Primary Care Provider Steve Lebron [phone] Allergies Allergen (clinical drug ingredient) Drug/Non Drug [...] Problem Status W/U Status Risk Notes Problem [id number] Encounter for screening for malignant neoplasm of colon (Z12.11) Active confirmed Problem [id number] History of adenomatous polyp of colon (Z86.010) Active confirmed Problem Preprocedural examination (289049649181966) Preprocedural examination (Z01.818) Active confirmed Problem History of polyp of colon (situation) (284978690) History of colon polyps (Z86.010) Active confirmed Problem [id number] Irritable bowel syndrome, unspecified type (K58.9) Active confirmed Problem Diverticulosis of colon (593892801) Diverticulosis of colon (K57.30) Active confirmed Plan Of Treatment Future Test Test Name Order Date COLONOSCOPY 08/23/2016 COLONOSCOPY 11/29/2021 Insurance Providers Payer Name Payer Address Payer Phone Subscriber Number Group Number Insured Name Patient Relationship to Insured Coverage Start Date Coverage End Date MEDICARE OF [place] [address] [place] [address] [phone] [id number] BRIAN PETERS Self - patient is the insured Medical (General) History Medical History History ICD Code 03-08-2009 screening colonos copy--1 small tubular adenoma removed, diverticulosis, internal hemorrhoids, hyperplastic polyps Denies [place],DM,CVA,Lung disease,renal dise ase EGD in 02/2010----small hiat al hernia and mild gastritis--biopsies were negative for celiac disease, negative for H. pylori, and there was no evidence of any Bustaamnte's esophagus IBS with negative endoscopy and colonosc opy as above Colonoscopy in 10/2016 with only a small hyperplastic polyp removed Surgical History Surgery Date(Month/Year) Left knee surgery 03/2021
--- OUTSIDE RECORDS SUMMARY | 2025-01-12 08:31 | XMS_ITS | Clinical Summary ---
Author Organization [address] [place] [address] Address [address] [place] [address] Phone Care Team Providers Care Pouako Kura [place] Maori Name Role Phone Jeniffer Colunga MD Primary Care Provider Allergies Active Allergy Reactions Criticality Noted Date Comments Penicillins 03/09/2009 Pcn [penicillins] Immunizations Immunization Administration Dates Next Due Hepatitis B (Rxgmzow-X-Rlgmd , Recombivax HB-Adult) 19yo and older 01/20/2002 [...] Insurance MEDICARE MEDICAID - [place] Care Teams P[place]ako [place] Maori Relationship Specialty Start Date End Date Jeniffer Colunga MD [address] [place] [address] PCP - General Internal Medicine 03/24/24
--- OUTSIDE RECORDS SUMMARY | 2025-01-12 08:32 | XMS_ITS | Clinical Summary ---
Author Organization [employer] Address [address] [place] [address] [address] [place] [address] Care Team Providers Care Home Care Manager Name Role Phone Unavailable Primary Care Provider [...]
--- OUTSIDE RECORDS SUMMARY | 2025-01-12 08:32 | XMS_ITS | Encounter Summary ---
Author Organization [facility] Address [address] [place] [address] Care Team Providers Care Aircraft Armament Mechanic Name Role Phone Unavailable Primary Care Provider Unavailabl e Encounter Details Date Type Department Care Team (Latest Contact Info) Description 08/13/2020 Abstract [facility] CONVERSIONS Dental, Provider, DDS [...]
== END ==
LOC: HO.CARD 08:14
PROVIDERS: PCP Internal Medicine; Visit Provider Internal Medicine Cardiovascular Disease
DX: R00.2 Palpitations (principal); R93.1 Abnormal findings on diagnostic imaging of heart and coronary circulation
CPT/HCPCS: 78452; 93017; A9500

== ENCOUNTER → 2025-01-12 08:17 | Outpatient (BNV) | payer MEDICARE, MEDICAID, SELFPAY | PROVIDERS: PCP Internal Medicine; Visit Provider Nurse Practitioner Family | DX: R94.31 Abnormal electrocardiogram [ECG] [EKG] (principal) | CPT/HCPCS: 78452; 93016; 93018 ==

== ENCOUNTER 2025-02-19 06:13 | Outpatient (REF) | payer MEDICARE, MEDICAID, SELFPAY ==
--- OUTSIDE RECORDS SUMMARY | 2025-02-19 06:15 | XMS_ITS | Clinical Summary ---
Author Organization [address] [place] [address] Address [address] [place] [address] Phone Care Team Providers Care Machinist Outside Name Role Phone Jeniffer Colunga MD Primary Care Provider Allergies Active Allergy Reactions Criticality Noted Date Comments Penicillins 03/09/2009 Pcn [penicillins] Immunizations Immunization Administration Dates Next Due Hepatitis B (Lyxzdxy-P-Thhuc , Recombivax HB-Adult) 19yo and older 01/20/2002 [...] Insurance MEDICARE [place]ICAID - [place] Care Teams Machinist Outside Relationship Specialty Start Date End Date Jeniffer Colunga MD [address] [place] [address] PCP - General Internal Medicine 03/24/24
--- OUTSIDE RECORDS SUMMARY | 2025-02-19 06:15 | XMS_ITS | Patient Health Record ---
Author Organization [facility] Address [address] [place] [address] Care Team Providers Care Latin Teacher Name Role Phone Cristine FLYNN, Jeniffer Primary Care Provider Steve Lebron [phone] Allergies Allergen (clinical drug ingredient) Drug/Non Drug Allergy documented on EMR Reaction Allergy Type Onset Date Status vancomycin Vancomycin Rash Drug Allergy Activ e Penicillin Rash Drug Allergy Active Reason For Referral No Information Medications Medication SIG (Take, Route, Fr equency, Duration) Notes Start Date End Date Status LORazepam 0.5 MG TAKE 1 TABLET BY LORNE ONCE DAILY NEEDED FOR ANXIETY Oral; Duration: 10 Active Immunizations Vaccine Route Administration Date [...] Problem Status W/U Status Risk Notes Problem Screening for malignant neoplasm of colon (863052894) Encounter for screening for malignant neoplasm of colon (Z12.11) Active confirmed Problem History of adenomatous polyp of colon (434592195) History of adenomatous polyp of colon (Z86.010) Active confirmed Problem Preprocedural examination (750512583653918) Preprocedural examination (Z01.818) Active confirmed Problem History of polyp of colon (situation) (679725103) History of colon polyps (Z86.010) Active confirmed Problem Irritable bowel syndrome (10783498) Irritable bowel syndrome, unspecified type (K58.9) Active confirmed Problem Diverticulosis of colon (581731189) Diverticulosis of colon (K57.30) Active confirmed Plan Of Treatment Future Test Test Name Order Date COLONOSCOPY 08/23/2016 COLONOSCOPY 11/29/2021 Insurance Providers Payer Name Payer Address Payer Phone Subscriber Number Group Number Insured Name Patient Relationship to Insured Coverage Start Date Coverage End Date MEDICARE OF [place] [address] [facility] [place] [id number] BRIAN PETERS Self - patient is the insured Medical (General) History Medical History History ICD Code 03-08-2010 screening colonos copy--1 small tubular adenoma removed, diverticulosis, internal hemorrhoids, hyperplastic polyps Denies [place],DM,CVA,Lung disease,renal dise ase EGD in 02/2010----small hiat [...]
--- OUTSIDE RECORDS SUMMARY | 2025-02-19 06:15 | XMS_ITS | Clinical Summary ---
Author Organization [employer] Address [address] [place] [address] [address] [place] [address] Care Team Providers Care Vp Celebrity Services Name Role Phone Unavailable Primary Care Provider [...]
--- OUTSIDE RECORDS SUMMARY | 2025-02-19 06:15 | XMS_ITS | Encounter Summary ---
Author Organization [email or web address] Address [address] [place] [address] Care Team Providers Care Material Attendant Name Role Phone Unavailable Primary Care Provider Unavailabl e Encounter Details Date Type Department Care Team (Latest Contact Info) Description 08/13/2020 Abstract [facility] CONVERSIONS Dental, Provider, DDS Social History [...]
[2025-02-19 11:21] LABS: Alanine Aminotransferase 23 U/L (0-31); Aspartate Amino Transferase 31 U/L (5-31); Cholesterol 244 mg/dL (<200); HDL Cholesterol 55 mg/dL (>40); Triglycerides 169 mg/dL (<150)
== END 2025-02-19 06:14 | disposition home or self-care (01) ==
LOC: HO.HMGCLDS 06:13
PROVIDERS: PCP Internal Medicine; Visit Provider Internal Medicine
DX: E78.2 Mixed hyperlipidemia (principal); R73.01 Impaired fasting glucose; M85.89 Other specified disorders of bone density and structure, multiple sites
CPT/HCPCS: 36415; 80061; 82306; 82947; 84450; 84460

== ENCOUNTER 2025-02-23 14:23 | Outpatient (AMB) | payer MEDICARE, MEDICAID, SELFPAY ==
[2025-02-23 14:27] VITALS: BP 134/84; PULSE 70; RESP 16; TEMP 36.7; O2SAT 98; BMI 31.6
--- NOTE | 2025-02-23 14:27 | A.OFFPC_ITS ---
Vital Signs 02/23/25 14:27 Height 5 ft 2 in Weight 173 lb BMI 31.6 BP 134/84 Blood Pressure Location Rt brachial Position Sitting Respiration 16 Pulse 70 Pulse Source Pulse Oximeter Temp 98.1 F Temp Source Oral Pulse Oximetry (%) 98 Oxygen Delivery Method Room Air Intake Visit Reasons: Annual PE Intake Note: Pt is here today for her PE: last mammogram 08/23/23, bone density scan 08/23/23, colonoscopy 01/30/22 Director [employer]icon[employer] Required: No Allergies Penicillins (PENICILLINS) Allergy (Severe, Verified 02/23/25 14:48) RASH- very bad rash vancomycin Allergy (Verified 02/23/25 14:48) Itching Medication List - Last Reconciled 02/23/25 by Jeniffer Colunga MD estradiol 0.01%(0.1mg/gram) (Estrace) 2 grams vaginal DAILY 90 days Tobacco use date assessed: 02/23/25 Fall risk assessment: No Falls in past year Last assessed Fall Risk: 02/23/25 Dental Screening Dental Screen Date: 02/23/25 HPI Annual PE HPI Details The patient is a 64-year-old female presenting for a physical exam. She is overdue for her breast cancer screening, last mammogram was done 08/23/2023, together with a bone density scan done at the same time, which showed osteopenia in left femoral neck and left femur, normal bone density in lumbar spine. She reports worsening knee pain that limits her ability to walk for extended periods, and she is scheduled for a revision surgery. Her limited mobility has led to a decrease in physical activity. For the past year, she has experienced intermittent episodes of a heavy heart b eating sensation, which she states is not a palpitation. A recent cardiology workup included a stress test, which was normal, and an echocardiogram that showed basal hypokinesia with normal valve function. She has an upcoming appointment with her nurse anesthesia program director in March to discuss these findings. Recent lab work showed an elevated fasting glucose of 105 mg/dL, which is in the prediabetic range. Her cholesterol levels have also increased, with a total cholesterol of 244 mg/dL, LDL of 156 mg/dL, and triglycerides of 169 mg/dL. The patient has a history of recurrent urinary tract infections, which have improved with the use of a cream. She reports anxiety, particularly when driving downhill, which has restricted her from driving long distances . She has a history of an adenomatous colon polyp, and her next colonoscopy is scheduled for 2023 . She continues to smoke cigarettes, though she reports a reduction in frequency, and she drinks wine intermittently. [facility] Medical History (Updated 03/01/25 @ 23:39 by Jeniffer Colunga MD) Acute anxiety History of adenomatous polyp of colon Intermittent palpitations Acquired deformity of toenail Lumbar spondylosis Osteopenia of multiple sites Mixed hyperlipidemia Vaccination refused by patient Chronic low back pain Impaired fasting glucose Refused influenza vaccine Not ready to quit smoking Tubular adenoma of colon Internal bleeding hemorrhoids Encounter for general adult medical examination with abnormal findings Surgical History Status post total left knee replacement Hx of total knee arthroplasty Hx of tubal ligation Hx of colonoscopy Family History Father Myocardial infarction CVD (cardiovascular disease) Mother Depression Sister No problems noted. Maternal Grandmother No problems noted. Maternal Grandfather No problems noted. Paternal Grandfather No problems noted. Paternal Grandmother No problems noted. Son No problems noted. Son No problems noted. Other Substance use disorder Social History Household Members: Spouse Housing: House Are you a primary acute care certified nursing assistant to a significant other at home: No Do you presently have visiting nurse or other home services: No Alcohol intake: current Alcohol intake frequency: does not drink Alcohol type: beer and wine Patient Tobacco Use Status: Current everyday Tobacco user Tobacco use type: Cigarette Cigarette Packs Per Day: 0.5 Cigarettes Per Day: 10.0 Years Smoked: 40 e-Cigarette/Vaping Use: Never Used Second Hand Smoke Exposure: Yes service: No Current occupational status: disabled Current occupation: right handed Cognitive needs: No Hearing needs: No Vision needs: Yes Questionnaire PHQ-9 Over the last 2 weeks, how often have you been bothered by any of the following problems? 1. Little interest or pleasure in doing things: not at all 2. Feeling down, depressed, or hopeless: not at all 3. Trouble falling or staying asleep, or sleeping too much: not at all 4. Feeling tired or having little energy: not at all 5. Poor appetite or overeating: not at all 6. Feeling bad about yourself - or that you are a failure or have let yourself or your family down: not at all 7. Trouble concentrating on things, such as reading the newspaper or watching television: not at all 8. Moving or speaking so slowly that other people could have noticed. Or the opposite - being so fidgety or restless that you have been moving around a lot more than usual: not at all 9. Thoughts that you would be better off or of hurting yourself in some way: not at all Total score: 0 Depression Screening Interpretation: Negative Depression Screening Done: Yes Source: Developed by Drs. Steve Ernst, Latesha Horton, Lanre Vegas and colleagues, with an educational lesley from [employer]. Thrive Questionnaire Date Thrive assessed: 05/01/24 I am a: Patient What is your living situation today?: I have a steady place to live Within the past 12 months, did the food you bought not last and you didn't have the money to get more?: Never true Within the past 12 months, did you worry whether your food would run out before you got money to buy more?: Never true Do you have trouble paying for medicines?: No Do you have trouble getting transportation to medical appointments?: Yes Do you have trouble paying your heating and electricity bill?: No Do you have trouble taking care of your child, family member or friend?: No Do you have trouble with day-to-day activities such as bathing, preparing meals, shopping, managing finances, etc.?: No Are you currently unemployed and looking for a job?: No Are you interested in more education?: No Please select the resources that you would like help with: None Currently or been in a relationship where the following occur: No concerns reported THRIVE Score: 1 AUDIT C Alcohol Use Questionnaire (AUDIT-C) 1. How often do you have a drink containing alcohol?: 2-4 times a month 2. How many drinks containing alcohol do you have on a typical day when you are drinking?: 1 or 2 3. How often do you have six or more drinks on one occasion?: Less than monthly Total Score: 3 Score Reviewed/Action Taken: Yes SUSY-7 AMB Questionnaire SUSY-7 Date SUSY - 7 assessed: 05/01/24 Feeling nervous, anxious, or on edge: 0 = Not at all Not being able to stop or control worryin = Not at all Worrying too much about different things: 0 = Not at all Trouble relaxin = Not at all Being so restless that it is hard to sit still: 0 = Not at all Becoming easily annoyed or irritable: 0 = Not at all Feeling afraid as if something awful might happen: 0 = Not at all Total SUSY-7 score (0-4 normal; 5-9 mild; 10-14 moderate; 15-21 severe): 0 Source: Developed by Drs. Steve Ernst, Latesha Horton, Lanre Vegas and colleagues, with an educational lesley from [employer]. Review of Systems Const Details: [facility] Denies fatigue, Denies headache(s), Denies lethargy and Denies malaise Eyes Reports no additional complaints ENT Details: Overdue for dental prophylaxis Reports no additional complaints, Denies dizziness and Denies headache(s) Card Reports as per HPI Resp Details: Continues to smoke cigarettes with no desire to quit at present time, declined referral for lung cancer screening Reports no additional complaints GI Reports no additional complaints Reports no additional complaints Musc Reports no additional complaints Skin/Breast Denies breast pain, Denies breast mass, Denies lesions and Denies rash Neuro Denies dizziness and Denies headache(s) Psych Details: Has anxiety/panic attacks when driving downhill Reports no additional complaints Endo Denies fatigue Sharif/Lymph Reports no additional complaints Aller/Immun Reports no additional complaints Physical exam (Primary Care) Vital Signs: Last Vital Signs Temp 98.1 F 02/23/25 14:27 Pulse 70 02/23/25 14:27 Resp 16 02/23/25 14:27 BP 134/84 02/23/25 14:27 Pulse Ox 98 02/23/25 14:27 Oxygen Delivery Method Room Air 02/23/25 14:27 BMI result Body Mass Index 31.6 Tobacco/Smoking Status: Tobacco use Status Tobacco use date assessed 02/23/25 02/23/25 14:34 Patient Tobacco Use Status Current everyday Tobacco 02/23/25 14:27 Tobacco use type Cigarette 02/23/25 14:27 e-Cigarette/Vaping Use Never Used 02/23/25 14:27 PHQ-9: PHQ-9 Score PHQ-9: Total score 0 02/23/25 15:23 Depression Screening Interpretation: Negative Thrive Assessment: Date of Thrive Assessment Date Thrive assessed 05/01/24 02/23/25 14:27 Currently or been in a relationship where the following occur: No concerns reported Const Other: Alert oriented x3, no acute distress noted ambulatory normal gait Orientation/consciousness: patient oriented x3 HENKS Mouth: oropharynx normal and moist mucous membranes abnormal Eyes General: appearance normal, both eyes and all related structures Neck Neck: Yes full ROM, Yes no lymphadenopathy and Yes supple Chest Chest palpation & inspection: normal inspection of the chest Breast/axilla palpation: normal palpation of the breasts Resp Auscultation: clear to auscultation bilaterally Cardio Rate: regular rate Rhythm: regular rhythm Heart sounds: S1 normal heart sound present and S2 normal heart sound present Bruits: no carotid bruits GI Palpation (GI): Soft to palpation, nontender and no guarding Auscultation: normal bowel sounds Other: Reports history of urinary tract infections, whichhas resolved since she started using Estrace cream General: Yes no CVA tenderness Back/Spine/Pelvis Back: no CVA tenderness and No back tenderness Skin General skin exam: no rashes or lesions noted Nails: yellow and thickened (Toenails bilaterally) Neuro General: patient oriented x3, gait normal, moves all extremities, Normal light touch and pain sensation and no focal motor deficits Extrem General: Yes normal to inspection, Yes full ROM, Yes no joint enlargement, Yes no pedal edema, Yes no calf tenderness and Yes normal gait Psych Appearance: grossly normal and well kempt Mental Status: mental status grossly normal Speech and movement: Normal speech and movement present Affect: normal affect Results Reviewed Results Reviewed: Name: Adele Martinez Age/Sex: 64/F : 1960 Unit#: [id number] Attend Dr: Jeniffer Colunga MD Re02/19/25 Status: DEP REF Location: [facility] Disch: SPEC : [id number] CRUZ: 02/19/25 STATUS: COMP REQ : [id number] RECD: 02/19/25-[address]: Jeniffer Colunga MD COMP: 02/19/25-1137 ENTERED: 02/19/[address]: ORDERED: Glu Fasting, AST, ALT, Lipid Panel, Vitamin D 25-OH Test Result Flag Reference FBS 105 H 60-99 mg/dL A fasting glucose from 100-125 mg/dl is considered impaired (pre-diabetes). AST (GOT) 31 5-31 U/L ALT (GPT) 23 0-31 U/L Triglyceride 169 H <150 mg/dL Desirable Triglyceride: less than 150 mg/dL Borderline High Triglyceride 150-199 mg/dL High Triglyceride: 200-499 mg/dL Very High Triglyceride: greater than or equal to 5OO mg/dL Cholesterol 244 H <200 mg/dL Desirable Cholesterol: less than 200 mg/dL Borderline High Cholesterol: 200-239 mg/dL High Cholesterol: greater than 239 mg/dL LDL Calculated 156 H <100 mg/dL Desirable LDL: less than 100 mg/dL Near Optimal/Above Optimal LDL: 110-129 mg/dL Borderline High LDL: 130-159 mg/dL High LDL: 160-189 mg/dL Very High LDL: greater than or equal to 190 mg/dL HDL 55 >40 mg/dL Desirable HDL: greater than 40 mg/dL Note: This HDL assay may give artificially low results in patients with liver disease. Vitamin D 25-OH 61.7 >30 ng/mL Health Based Reference Values* < 20 ng/mL Deficient 20-30 ng/mL Insufficient > 30 ng/mL Sufficient Coding Level of Care Code Est Pt Prev Care >65y(32100) Diagnoses Mixed hyperlipidemia E78.2 Impaired fasting glucose R73.01 Palpitations with regular cardiac rhythm R00.2 Acute anxiety F41.9 Primary osteoarthritis of left knee M17.12 Not ready to quit smoking Z72.0 Osteopenia of multiple sites M85.89 Annual visit for general adult medical examination with abnormal findings Z00.01 Assessment & Plan Assessment & Plan (1) Mixed hyperlipidemia: Code(s): E78.2 - Mixed hyperlipidemia Category: Medical (2) Impaired fasting glucose: Code(s): R73.01 - Impaired fasting glucose Category: Medical (3) Palpitations with regular cardiac rhythm: Code(s): R00.2 - Palpitations Category: Medical (4) Acute anxiety: Code(s): F41.9 - Anxiety disorder, unspecified Category: Medical (5) Primary osteoarthritis of left knee: Code(s): M17.12 - Unilateral primary osteoarthritis, left knee Category: Medical (6) Not ready to quit smoking: Code(s): Z72.0 - Tobacco use Category: Social Hx (7) Osteopenia of multiple sites: Code(s): M85.89 - Other specified disorders of bone density and structure, multiple sites Category: Medical (8) Annual visit for general adult medical examination with abnormal findings: Code(s): Z00.01 - Encounter for general adult medical examination with abnormal findings Plan 1. Mixed Hyperlipidemia The patient's recent lab results show worsening lipid levels , with total cholesterol at 244 mg/dL, LDL at 156 mg/dL, and triglycerides at 169 mg/dL. Her 10-year ASCVD risk is 12.1%. The plan is to encourage diet and exercise, though her exercise is limited by knee pain. The upcoming cardiology appointment will further address this. The option of statin therapy was mentioned, but patient declined starting one at present time. 2. Prediabetes Fasting glucose is 105 mg/dL. The plan is to manage with diet and exercise. The patient's current inactivity due to knee pain is a contributing factor. 3. Basal Hypokinesia and Palpitations The patient's echocardiogram revealed basal hypokinesia, though her stress test was normal. She continues to experience sensations of a heavy heartbeat. She will keep her cardiology appointment on March [address] Hernandes to discuss these findings and determine the next steps. 4. Anxiety The patient reports significant situational anxiety, mainly related to driving. A prescription for lorazepam to be taken as needed will be sent to her pharmacy at [facility]. 5. Knee Pain The patient has chronic and worsening knee pain, which severely limits her mobility. She is planning to undergo a revision knee surgery. Her current lack of physical activity is impacting her metabolic health. 6. Tobacco Use The patient is a long-term smoker. She was offered a low-dose CT for lung cancer screening, for which she is eligible, but she declined at this time. 7. Osteopenia multiple sites Patient advised to take adequate calcium from dietary sources, start taking vitamin-D 3 supplements at least 2000 units daily and do regular weight-bearing exercise as much as you can. Will repeat another bone density scan in 2026 8. Annual visit for general medical exam with abnormal findings An order will be placed for a mammogram and a bone density scan to be performed together next year. She was reminded that her next colonoscopy is due in 2026. She has declined the flu and pneumonia vaccines. She was advised to contact her Medicare Advantage plan to find an in-network dentist for a cleaning. She has a follow-up appointment with urology in July. Patient was informed and verbally consented to the use of an ambient scribe for clinic note documentation during this visit. Medications: Refilled lorazepam 0.5 mg PO DAILY PRN 10 tabs 0RF anxiety
--- OUTSIDE RECORDS SUMMARY | 2025-02-24 04:29 | XMS_ITS | Clinical Summary ---
Author Organization [address] [place] [address] [address] [place] [address] Phone Care Team Providers Care Personal Caregiver Name Role Phone Jeniffer Colunga MD Primary Care Provider Allergies Active Allergy Reactions Criticality Noted Date Comments Penicillins 03/09/2009 Pcn [penicillins] Immunizations Immunization Administration Dates Next Due Hepatitis B (Fjwupjo-C-Hzeau , Recombivax HB-Adult) 19yo and older 01/20/2002 [...] Insurance MEDICARE MEDICAID - [place] Care Teams Personal Caregiver Relationship Specialty Start Date End Date Jeniffer Colunga MD [address] [place] [address] PCP - General Internal Medicine 03/24/24
== END 2025-02-23 15:29 | disposition home or self-care (01) ==
LOC: HO.HMCC 14:24
PROVIDERS: PCP Internal Medicine; Visit Provider Internal Medicine
DX: Z00.01 Encounter for general adult medical examination with abnormal findings (principal); E78.2 Mixed hyperlipidemia; R73.01 Impaired fasting glucose; R00.2 Palpitations; F41.9 Anxiety disorder, unspecified; M17.12 Unilateral primary osteoarthritis, left knee; Z72.0 Tobacco use; M85.89 Other specified disorders of bone density and structure, multiple sites

== ENCOUNTER → 2025-02-23 14:23 | Outpatient (BNVA) | payer MEDICARE, MEDICAID, SELFPAY | PROVIDERS: PCP Internal Medicine; Visit Provider Internal Medicine | DX: Z00.01 Encounter for general adult medical examination with abnormal findings (principal); E78.2 Mixed hyperlipidemia; R73.01 Impaired fasting glucose; R00.2 Palpitations; F41.9 Anxiety disorder, unspecified; M17.12 Unilateral primary osteoarthritis, left knee; M85.89 Other specified disorders of bone density and structure, multiple sites; F17.210 Nicotine dependence, cigarettes, uncomplicated | CPT/HCPCS: 96127; 99397 ==

== ENCOUNTER 2025-03-09 15:11 | Outpatient (AMB) | payer MEDICARE, MEDICAID, SELFPAY ==
[2025-03-09 15:20] VITALS: BP 110/80; PULSE 72; BMI 31.9
--- NOTE | 2025-03-09 15:20 | A.OFFVIS_ITS ---
Vital Signs 03/09/25 15:20 Height 5 ft 2 in Weight 174 lb 2.643 oz BMI 31.9 BP 110/80 Blood Pressure Location Lt brachial Position Sitting Pulse 72 Pulse Source Pulse Oximeter Intake Visit Reasons: f/up neftali Intake Note: f/up- neftali Violin Maker Hand Required: No Accompanied by: Self / Same As Patient Allergies Penicillins (PENICILLINS) Allergy (Severe, Verified 02/23/25 14:48) RASH- 1969' very bad rash vancomycin Allergy (Verified 02/23/25 14:48) Itching Medication List - Last Reconciled 03/09/25 by Siddharth Hernandes MD estradiol 0.01%(0.1mg/gram) (Estrace) 2 grams vaginal DAILY 90 days lorazepam 0.5 mg PO DAILY PRN HPI Comments Details: 64-year-old female who is here for palpitations. In August 2020 she was seen for perioperative cardiovascular risk assessment before knee surgery. At that time she also complained of palpitations and underwent Holter monitoring which was normal. She has saying the palpitations are more frequent and she gets 10 episodes daily. She is describing irregular heartbeat and racing of her heart. She also at times feels that the heart stops and then she feels a strong heartbeat (sound more like PVCs/PACs). No chest discomfort. No shortness of breath more than usual. Blood pressure is stable and normal. Her LDL cholesterol is elevated at 128. Total cholesterol 212, triglycerides 155 and HDL 53. Last TSH was 3.6. 11/26/2024: She is here for follow-up. She had Holter monitoring done in September 2024. This was a 6 day Holter where underlying rhythm was sinus with a rare supraventricular ectopy and rare ventricular ectopy. She did not have any sustained tachyarrhythmia or any episodes of bradycardia. She is saying that she has more symptoms and has been getting almost daily symptoms at this point. She is describing a sensation that the heartbeat strongly which usually is seen with premature atrial complexes or PVCs. These last for few sec at a time. She is denying any chest discomfort shortness of breath. Her echocardiography has shown preserved LV function with basal inferior wall hypokinesis. 03/09/2025: She is here for follow-up. She underwent stress MIBI which showed no perfusion defect. She was able to exercise for 7.5 Mets and had mild shortness of breath, isolated PVC and normotensive response to exercise. Previous Holter monitor in September 2024 sinus rhythm, rare supraventricular and ventricular ectopy. Blood workup February 2025 showing total cholesterol 244, triglyceride 169, LDL 156 and HDL 55. She continues to get off and on palpitations. She feels as if her heart slows down when she gets palpitations. She has not noticed any relationship to foods. [facility] Medical History Acute anxiety History of adenomatous polyp of colon Intermittent palpitations Acquired deformity of toenail Lumbar spondylosis Osteopenia of multiple sites Mixed hyperlipidemia Vaccination refused by patient Chronic low back pain Impaired fasting glucose Refused influenza vaccine Not ready to quit smoking Tubular adenoma of colon Internal bleeding hemorrhoids Encounter for general adult medical examination with abnormal findings Surgical History Status post total left knee replacement Hx of total knee arthroplasty Hx of tubal ligation Hx of colonoscopy Family History Father Myocardial infarction CVD (cardiovascular disease) Mother Depression Sister No problems noted. Maternal Grandmother No problems noted. Maternal Grandfather No problems noted. Paternal Grandfather No problems noted. Paternal Grandmother No problems noted. Son No problems noted. Son No problems noted. Other Substance use disorder Social History Household Members: Spouse Housing: House Are you a primary plant care worker to a significant other at home: No Do you presently have visiting nurse or other home services: No Alcohol intake: current Alcohol intake frequency: does not drink Alcohol type: beer and wine Patient Tobacco Use Status: Current everyday Tobacco user Tobacco use type: Cigarette Cigarette Packs Per Day: 0.5 Cigarettes Per Day: 10.0 Years Smoked: 40 e-Cigarette/Vaping Use: Never Used Second Hand Smoke Exposure: Yes service: No Current occupational status: disabled Current occupation: right handed Cognitive needs: No Hearing needs: No Vision needs: Yes Review of Systems Const Denies chills, Denies fatigue, Denies fever(s), Denies frequent falls, Denies weakness, Denies weight gain and Denies weight loss ENT Denies dizziness Card Denies chest pain, Denies leg edema, Denies lightheadedness, Denies palpitations, Denies dyspnea and Denies dyspnea on exertion Resp Denies cough, Denies dyspnea and Denies dyspnea on exertion GI Denies hematochezia Musc Denies abnormal gait, Denies muscle weakness, Denies numbness, Denies radiating pain into limb and Denies tingling Neuro Denies abnormal gait, Denies dizziness, Denies frequent falls, Denies numbness, Denies tingling and Denies weakness Endo Denies fatigue and Denies palpitations Physical Exam Vital Signs: Last Vital Signs Pulse 72 03/09/25 15:20 BP 110/80 03/09/25 15:20 BMI result Body Mass Index 31.9 GENERAL APPEARANCE: in no acute distress, pleasant. NECK: no carotid bruit, no jugular venous distention. SKIN: no suspicious lesions, warm and dry. HEART: no murmurs, regular rate and rhythm. LUNGS: clear to auscultation bilaterally. ABDOMEN: soft, nontender. EXTREMITIES: no edema. PERIPHERAL PULSES: equal. NEUROLOGIC: No gross deficits, AAO X 3 Assessment & Plan Assessment & Plan (1) Palpitations with regular cardiac rhythm: Code(s): R00.2 - Palpitations Category: Medical (2) Abnormal echocardiogram: Code(s): R93.1 - Abnormal findings on diagnostic imaging of heart and coronary circulation Category: Medical Plan 64-year-old female here for follow-up. She was seen for palpitations and underwent echocardiography and Holter monitoring. Holter monitoring did not show any sustained arrhythmia. Rare supraventricular and ventricular ectopy was noted. She also had echocardiography which showed preserved LV function with basal inferior wall hypokinesis. Subsequent to that she had stress MIBI done which was normal. She is denying any chest discomfort shortness of breath. She continues to get off and on palpitations. She is saying the LEs since she started taking [id number] magnesium. No sustained arrhythmia noted on the monitoring. Her LDL cholesterol is elevated at 156. Total cholesterol 244. I have advised her to start rosuvastatin 20 mg daily. She will need repeat testing in 6-8 weeks. She will see us back in 6 months. Thank you for allowing me to participate in the care of your patient. Please feel free to contact me if you have any questions. Orders: Orders Lipid Panel 2 Months E78.2 - Mixed hyperlipidemia Medications: New rosuvastatin 20 mg PO DAILY 60 tabs 3RF E78.2 - Mixed hyperlipidemia Coding Level of Care Code Est Pt Level 4 (76099) Diagnoses Palpitations with regular cardiac rhythm R00.2 Abnormal echocardiogram R93.1
--- OUTSIDE RECORDS SUMMARY | 2025-03-09 18:19 | XMS_ITS | Clinical Summary ---
Author Organization [address] [place] [address] Address [address] [place] [address] Phone Care Team Providers Care Swatcher Name Role Phone Jeniffer Colunga MD Primary Care Provider Allergies Active Allergy Reactions Criticality Noted Date Comments Penicillins 03/09/2009 Pcn [penicillins] Immunizations Immunization Administration Dates Next Due Hepatitis B (Nbkhxfp-Z-Lxftf , Recombivax HB-Adult) 19yo and older 01/20/2002 [...] Insurance MEDICARE MEDICAID - [place] Care Teams Swatcher Relationship Specialty Start Date End Date Jeniffer Colunga MD [address] [place] [address] PCP - General Internal Medicine 03/24/24
--- OUTSIDE RECORDS SUMMARY | 2025-03-09 18:19 | XMS_ITS | Clinical Summary ---
Author Organization [employer] Address [address] [place] [address] [address] [place] [address] Care Team Providers Care It Infrastructure Consultant Name Role Phone Unavailable Primary Care Provider [...] of 2) 2008 COVID-19 Vaccine ( - 2024-2 6 season) 2024 Influenza Vaccine (#1) 2024 RSV [...]
--- OUTSIDE RECORDS SUMMARY | 2025-03-09 18:19 | XMS_ITS | Encounter Summary ---
Author Organization [facility] Address [address] [place] [address] Care Team Providers Care Front Desk Auxiliary Name Role Phone Unavailable Primary Care Provider Unavailabl e Encounter Details Date Type Department Care Team (Latest Contact Info) Description 08/13/2020 Abstract [facility] CONVERSIONS Dental, Provider, DDS Social [...]
== END 2025-03-09 15:46 | disposition home or self-care (01) ==
LOC: HO.HCS 15:12
PROVIDERS: PCP Internal Medicine; Visit Provider Internal Medicine Cardiovascular Disease
DX: R00.2 Palpitations (principal); R93.1 Abnormal findings on diagnostic imaging of heart and coronary circulation
CPT/HCPCS: 99214

== ENCOUNTER → 2025-03-09 15:11 | Outpatient (BNVA) | payer MEDICARE, MEDICAID, SELFPAY | PROVIDERS: PCP Internal Medicine; Visit Provider Internal Medicine Cardiovascular Disease | DX: R00.2 Palpitations (principal); R93.1 Abnormal findings on diagnostic imaging of heart and coronary circulation | CPT/HCPCS: 99212 ==

== ENCOUNTER 2025-03-16 08:41 | Outpatient (REF) | payer MEDICARE, MEDICAID, SELFPAY ==
--- NOTE | ~2025-03-16 | XR_ITS ---
EXAMINATION: XR KNEE, LEFT CLINICAL INFORMATION: M25.562 - Pain in left knee COMPARISON: August 21, 2022 TECHNIQUE: AP bilateral standing, sunrise, and lateral views of the left knee. FINDINGS: Right knee demonstrates moderate medial and mild lateral joint space narrowing that appears stable to slightly progressed compared to the prior. There is vacuum phenomenon the medial compartment. There are tricompartmental marginal osteophytes. Left knee demonstrates changes related to total knee arthroplasty. There is no abnormal lucency at bone metal interfaces. There is no joint effusion. There is anatomic alignment. XR/XR knee LT 3V IMPRESSION: Moderate osteoarthritis of the right knee. Total knee arthroplasty of the left knee, stable. Electronically signed by: Lucho Monaco MD 03/16/2025 11:19 AM KO[facility] BARNES
== END 2025-03-16 08:42 | disposition home or self-care (01) ==
LOC: HO.HOSX 08:41
PROVIDERS: Visit Provider Orthopaedic Surgery
DX: T84.023A Instability of internal left knee prosthesis, initial encounter (principal)
CPT/HCPCS: 73562

== ENCOUNTER 2025-03-16 10:57 | Outpatient (AMB) | payer MEDICARE, MEDICAID, SELFPAY ==
--- NOTE | 2025-03-16 11:13 | MHC.OFFVIS ---
Intake Visit Reasons: OV - Left TKA 2021 - continued pain Intake Note: Adele is a 64 year old female who presents today for a follow up of her Left Knee. History of Left TKA 03/15/21. When we last saw her in 2022 where she was having continued pain and issues with instability and hyperflexion. She rpeorts that her pain is not worsening but it is bot improving and she just cannot take it anymore. She explains that the knee is not painful but gets very fatigued with walking and feels that she is limping. Allergies Penicillins (PENICILLINS) Allergy (Severe, Verified 02/23/25 14:48) RASH- s very bad rash vancomycin Allergy (Verified 02/23/25 14:48) Itching HPI HPI OV - Left TKA 2021 - continued pain: Details: Adele is a 64 year old female who presents today for a follow up of her Left Knee. History of Left TKA 03/15/21. When we last saw her in 2022 where she was having continued pain and issues with instability and hyperflexion. She rpeorts that her pain is not worsening but it is not improving and she just Continues to feel unstable. She explains that the knee is not painful but gets very fatigued with walking and feels that she is limping. [facility] Medical History Acute anxiety History of adenomatous polyp of colon Intermittent palpitations Acquired deformity of toenail Lumbar spondylosis Osteopenia of multiple sites Mixed hyperlipidemia Vaccination refused by patient Chronic low back pain Impaired fasting glucose Refused influenza vaccine Not ready to quit smoking Tubular adenoma of colon Internal bleeding hemorrhoids Encounter for general adult medical examination with abnormal findings Surgical History Status post total left knee replacement Hx of total knee arthroplasty Hx of tubal ligation Hx of colonoscopy Family History Father Myocardial infarction CVD (cardiovascular disease) Mother Depression Sister No problems noted. Maternal Grandmother No problems noted. Maternal Grandfather No problems noted. Paternal Grandfather No problems noted. Paternal Grandmother No problems noted. Son No problems noted. Son No problems noted. Other Substance use disorder Social History (Reviewed 03/09/25 @ 15:21 by Malia Church [facility]) Household Members: Spouse Housing: House Are you a primary healthcare applications analyst to a significant other at home: No Do you presently have visiting nurse or other home services: No Alcohol intake: current Alcohol intake frequency: does not drink Alcohol type: beer and wine Patient Tobacco Use Status: Current everyday Tobacco user Tobacco use type: Cigarette Cigarette Packs Per Day: 0.5 Cigarettes Per Day: 10.0 Years Smoked: 40 e-Cigarette/Vaping Use: Never Used Second Hand Smoke Exposure: Yes service: No Current occupational status: disabled Current occupation: right handed Cognitive needs: No Hearing needs: No Vision needs: Yes Physical Exam Exam Exam: does not woman no acute distress. Her left knee has 3 degrees of hyperextension 135 degrees of flexion. She has 1+ varus and valgus laxity without camila subluxation. 2+ dorsalis pedis pulse. Results Reviewed Results Reviewed: I personally reviewed relevant radiographs. Left total knee arthroplasty in expected post operative position with no hardware complications or evidence of loosening Assessment & Plan Assessment & Plan (1) Recurrent instability of left knee prosthesis: Code(s): T84.023A - Instability of internal left knee prosthesis, initial encounter Category: Medical Plan: this is a 64-year-old woman who is 5 years status post left knee replacement with left knee instability. I recommend liner exchange. She hyperextends slightly and would benefit from increased polyethylene thickness. I discussed this with her. I discussed the risks of infection, stiffness, incomplete symptom resolution medical complications associated with surgery as well as the alternatives and the benefits. I do think she would benefit the surgery. She is anxious but is healthy. I think this is the risk for her. I will have her get in touch with our nurse navigator and begin the preoperative clearance Orders: Orders XR knee LT 3V Today M25.562 - Pain in left knee Coding Level of Care Code Est Pt Level 4 (10450) Diagnoses Recurrent instability of left knee prosthesis T84.023A
== END 2025-03-16 11:46 | disposition home or self-care (01) ==
LOC: HO.HOS 10:58
PROVIDERS: PCP Internal Medicine; Visit Provider Orthopaedic Surgery
DX: T84.023A Instability of internal left knee prosthesis, initial encounter (principal); Z96.652 Presence of left artificial knee joint
CPT/HCPCS: 99214

== ENCOUNTER → 2025-03-16 10:59 | Outpatient (BNV) | payer MEDICARE, MEDICAID, SELFPAY | PROVIDERS: Visit Provider Radiology Diagnostic Radiology | DX: M17.12 Unilateral primary osteoarthritis, left knee (principal); Z96.652 Presence of left artificial knee joint | CPT/HCPCS: 73562 ==